=== PATIENT | male | born 1975 | race Caucasian/White ===

== ENCOUNTER 2016-12-06 20:44 | Emergency (ER) | payer BC, MEDICAID ==
[~2016-12-06 20:44] MED LIST: Acetaminophen/oxyCODONE 325-5 MG Tab PO ONE
[2016-12-06 20:53] VITALS: BP 136/85
[2016-12-06] MEDS ORDERED: Take Home: Acetaminophen/oxyCODONE 325-5 MG, 2 Tab Pack PO ONE (21:07)
--- NOTE | 2016-12-06 21:11 | EDM.PDOC ---
ED HPI GENERAL MEDICAL PROBLEM - General Chief Complaint: Back Pain or Injury Stated Complaint: back pain Time Seen by Provider: 12/06/16 20:45 Source of Information: Reports: Patient - History of Present Illness INITIAL COMMENTS - FREE TEXT/NARRATIVE: This patient is a 41 year old male that presents to the ER. Patient reports having chronic back pain. Patient reports his back pain is worse the last one week. Denies new injury. Patient denies urinary/bowel incontinence, denies saddle parathesia. Pulses +2, cap refill <2 sec, sensory/motor function intact. Neurovascular intact. Patient reports he has run out of his pain medication Percocet that is prescribed by his primary care provider Dr. Land in [place], [place]. I have called [facility] in [place]. I did confirm this provider is prescribing Percocet to this patient and he has a prescription for 90 ready for pickup. Patient has been filling his prescriptions early per pharmacy. Duration: Chronic (years) Location: Reports: Back Quality: Reports: Ache Severity: Mild Improves with: Reports: None Worsens with: Reports: Movement Associated Symptoms: Reports: No Other Symptoms. 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 Medication(s) Other Treatments LEADER ASSEMBLER: Gabapentin and Percocet both x3 Back Pain Score (Numeric/FACES): 5 - Related Data Allergies Allergy/AdvReac Type Severity Reaction Status Date / Time codeine Allergy Hives Verified 12/06/16 20:54 Home Meds: Home Meds Insulin Aspart [NovoLOG] 10 unit SQ ACBREAKFASTANDBED 04/01/13 [History] Insulin Glarg,Human.Rec.Analog [Lantus] 30 units SUBCUT DAILY 04/01/13 [History] Acetaminophen/oxyCODONE [Percocet 325-5 MG] 1 tab PO TID 04/07/13 [History] Gabapentin [Neurontin] 100 mg PO TID 12/06/16 [History] Past Medical History Musculoskeletal History: Reports: Back Pain, Chronic Neurological History: Reports: Neuropathy, Diabetic Psychiatric History: Reports: Depression Social & Family History - Family History Family Medical History: Noncontributory - Tobacco Use Smoking Status *Q: Current Every Day Smoker Years of Tobacco use: 15 Packs/Tins Daily: 0.5 - Caffeine Use Caffeine Use: Reports: Soda, Tea - Alcohol Use Days Per Week of Alcohol Use: 0 - Recreational Drug Use Recreational Drug Use: No Drug Use in Last 12 Months: Yes Recreational Drug Type: Reports: Marijuana/Hashish, Methamphetamine, Oxycodone Recreational Drug Use Frequency: Daily Recreational Drug Last Use: 1929 ED ROS GENERAL - Review of Systems Review Of Systems: See Below Constitutional: Reports: No Symptoms HEENT: Reports: No Symptoms Respiratory: Reports: No Symptoms Cardiovascular: Reports: No Symptoms Endocrine: Reports: No Symptoms GI/Abdominal: Reports: No Symptoms : Reports: No Symptoms Musculoskeletal: Reports: Back Pain Skin: Reports: No Symptoms Neurological: Reports: No Symptoms Psychiatric: Reports: No Symptoms Hematologic/Lymphatic: Reports: No Symptoms Immunologic: Reports: No Symptoms ED EXAM,LOWER BACK PAIN/INJURY - Physical Exam Exam: See Below Exam Limited By: No Limitations General Appearance: Alert, WD/WN, No Apparent Distress Eye Exam: Bilateral Eye: Normal Inspection, PERRL Ears: Normal External Exam, Normal Canal, Hearing Grossly Normal, Normal TMs Nose: Normal Inspection, Normal Mucosa, No Blood Throat/Mouth: Normal Inspection, Normal Lips, Normal Teeth, Normal Gums, Normal Oropharynx, Normal Voice, No Airway Compromise Head: Atraumatic, Normocephalic Neck: Normal Inspection, Supple, Non-Tender, Full Range of Motion Respiratory/Chest: No Respiratory Distress, Lungs Clear, Normal Breath Sounds, No Accessory Muscle Use Cardiovascular: Normal Peripheral Pulses, Regular Rate, Rhythm, No Edema, No Gallop, No JVD, No Murmur, No Rub GI/Abdominal: Soft, Non-Tender Back Exam: Normal Inspection, Full Range of Motion, Paraspinal Tenderness ( thoracic bilateral, lumbar bilateral ). No: CVA Tenderness (L), CVA Tenderness (R), Decreased Range of Motion, Muscle Spasm Extremities: Normal Inspection, Normal Range of Motion, Non-Tender, No Pedal Edema, Normal Capillary Refill Neurological: Alert, Normal Mood/Affect, Oriented x 3 Psychiatric: Normal Affect, Normal Mood Skin Exam: Warm, Dry, Intact, Normal Color, No Rash Lymphatic: No Adenopathy Course - Vital Signs Last Recorded V/S: Last Vital Signs Temp 98 F 12/06/16 20:47 Pulse 98 12/06/16 20:47 Resp 18 12/06/16 20:47 BP 136/85 12/06/16 20:47 Pulse Ox 97 12/06/16 20:47 - Orders/Labs/Meds Meds: Medications Discontinued Medications Generic Name Dose Route Start Last Admin Trade Name Dwayne PRN Reason Stop Dose Admin Oxycodone/Acetaminophen 2 packet 12/06/16 21:07 Take Home: Acetaminophen/Oxycodon, 2 Tab Pack PO 12/06/16 21:08 ONETIME ONE Departure - Departure Time of Disposition: 21:10 Disposition: Home, Self-Care 01 Condition: Good Clinical Impression: Low back pain - Discharge Information Instructions: Chronic Back Pain Forms: ED Department Discharge Additional Instructions: Followup with your primary care provider Return to the ER for worsening of condition or any emergent concerns Percocet 5/325mg 1 pill every 6 hours as needed for pain #4 no refill. Take Home. 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 - Assessment/Plan Plan: PLEASE SEE RNO NOTE FOR PFSH.
== END 2016-12-06 21:25 | disposition home or self-care (01) ==
LOC: CC.ED 20:44
DX: M54.5 Low back pain (principal); E11.40 Type 2 diabetes mellitus with diabetic neuropathy, unspecified; F17.210 Nicotine dependence, cigarettes, uncomplicated; Z88.5 Allergy status to narcotic agent; Z79.4 Long term (current) use of insulin; Z79.899 Other long term (current) drug therapy
CPT/HCPCS: 99283; A9270

== ENCOUNTER 2018-03-25 15:42 | Inpatient (IN) | payer BC, MEDICAID ==
[2018-03-25 16:43] LABS: SODIUM,NA 131 mEq/L (136-145)
[2018-03-25 16:47] LABS: CHLORIDE,CL 94 mEq/L (98-106)
--- NOTE | 2018-03-25 17:36 | EDM.PDOC ---
ED HPI GENERAL MEDICAL PROBLEM - General Chief Complaint: Lower Extremity Injury/Pain Stated Complaint: R FOOT INF/DIABETIC Time Seen by Provider: 03/25/18 16:19 Source of Information: Reports: Patient History Limitations: Reports: No Limitations - History of Present Illness INITIAL COMMENTS - FREE TEXT/NARRATIVE: Arvin is a 42 yo male who presents via private vehicle to the ED with complaints of infection from a wound to the bottom of his right foot. He states he noticed it 3 to 4 days ago and it seems to be getting worse. Initially, he noticed some drainage. Has diminished feeling to his feet as he is an uncontrolled diabetic. He states even with the diminished sensation he has been having 7 out of 10 pain to the bottom of foot. Reports he was walking around his home bare foot a few days ago. Does not know what cut his foot but thinks it could possibly be a piece of glass. He states when he noticed it he applied liquid bandage to it. Since noticing onset he thinks the infection has spread up his leg and noticed increased redness. Reports taking Percocet for surgery on his back and those are not helping the pain in his foot. Admits blood sugars continue to be difficult to control and roughly in the 300-400 range. Right Feet Pain Score (Numeric/FACES): 7 - Related Data Allergies Allergy/AdvReac Type Severity Reaction Status Date / Time codeine Allergy Hives Verified 12/06/16 20:54 Home Meds: Home Meds Insulin Aspart [NovoLOG] 10 unit SQ QIDACANDBED 04/01/13 [History] Acetaminophen/oxyCODONE [Percocet 325-5 MG] 1 tab PO TID PRN 04/07/13 [History] Gabapentin [Neurontin] 300 mg PO TID 12/06/16 [History] Insulin Glargine,Hum.Rec.Anlog [Basaglar Kwikpen U-100] 40 unit SQ BEDTIME 03/25 [History] Lisinopril 20 mg PO DAILY 03/25/18 [History] metFORMIN [Glucophage] 1,000 mg PO DAILY 03/25/18 [History] Past Medical History Cardiovascular History: Reports: Hypertension Musculoskeletal History: Reports: Back Pain, Chronic Neurological History: Reports: Neuropathy, Diabetic Psychiatric History: Reports: Anxiety, Depression Endocrine/Metabolic History: Reports: Diabetes, Type I - Past Surgical History Cardiovascular Surgical History: Reports: None Endocrine Surgical History: Reports: None Neurological Surgical History: Reports: None Musculoskeletal Surgical History: Reports: None Dermatological Surgical History: Reports: None Social & Family History - Family History Family Medical History: Noncontributory - Tobacco Use Smoking Status *Q: Current Every Day Smoker Years of Tobacco use: 15 Packs/Tins Daily: 0.5 - Caffeine Use Caffeine Use: Reports: Soda - Recreational Drug Use Recreational Drug Use: No Review of Systems - Review of Systems Review Of Systems: ROS reveals no pertinent complaints other than HPI. ED EXAM, GENERAL - Physical Exam Exam: See Below Exam Limited By: No Limitations General Appearance: Alert, No Apparent Distress Eye Exam: Bilateral Eye: Normal Inspection Ears: Normal External Exam, Normal Canal, Hearing Grossly Normal, Normal TMs Nose: Normal Inspection, Normal Mucosa, No Blood Throat/Mouth: Normal Inspection, Normal Lips, Normal Gums, Normal Oropharynx, Normal Voice, No Airway Compromise, Other (poor dentition) Head: Atraumatic, Normocephalic Neck: Normal Inspection, Supple Respiratory/Chest: No Respiratory Distress, Lungs Clear, Normal Breath Sounds, No Accessory Muscle Use Cardiovascular: Regular Rate, Rhythm, No Murmur Peripheral Pulses: 3+: Posterior Tibial (L), Posterior Tibial (R), Dorsalis Pedis (L), Dorsalis Pedis (R) GI/Abdominal: Normal Bowel Sounds, Soft, Non-Tender Extremities: Normal Capillary Refill, Increased Warmth (top aspect of foot), Redness, Other (1.7cm x 0.4cm laceration noted to bottom of right foot, no active drainage) Neurological: Alert, Oriented, Normal Cognition, Sensory/Motor Deficit ( diminished sensation to bilateral feet) Psychiatric: Normal Affect, Normal Mood Course - Vital Signs Last Recorded V/S: Last Vital Signs Temp 99 F 03/25/18 17:09 Pulse 116 H 03/25/18 17:09 Resp 18 03/25/18 17:09 BP 147/88 H 03/25/18 17:09 Pulse Ox 100 03/25/18 17:09 - Orders/Labs/Meds Labs: Laboratory Tests 03/25/18 03/25/18 Range/Units 16:30 16:30 WBC 13.0 H (5.0-10.0) 10^3/uL RBC 4.10 L (4.50-6.00) 10^6/uL Hgb 13.1 L (14.0-18.0) g/dL Hct 37.6 L (40.0-54.0) % MCV 91.7 (82.0-94.0) fL MCH 32.0 (27.0-32.0) pg MCHC 34.8 (33.0-38.0) g/dL RDW Coeff of Ludmila 12.2 (11.0-15.0) % Plt Count 343 (150-400) 10^3/uL Neut % (Auto) 75.9 (35-85) % Lymph % (Auto) 12.6 (10-55) % [place] % (Auto) 10.6 (0-16) % Eos % (Auto) 0.4 (0-5) % Baso % (Auto) 0.5 (0-3) % Neut # (Auto) 9.88 H (1.80-7.00) 10^3/uL Lymph # (Auto) 1.64 (1.00-4.80) 10^3/uL [place] # (Auto) 1.38 H (0.00-0.80) 10^3/uL Eos # (Auto) 0.05 (0.00-0.45) 10^3/uL Baso # (Auto) 0.06 10^3/uL Sodium 131 L (136-145) mEq/L Potassium 4.3 (3.5-5.0) mEq/L Chloride 94 L (98-106) mEq/L Carbon Dioxide 30 (21-32) mmol/L BUN 12 (7-18) mg/dL Creatinine 1.0 (0.7-1.3) mg/dL Est Cr Clr Drug Dosing 93.55 mL/min Estimated GFR (MDRD) > 60 (>=60) mL/min Glucose 373 H* D (75-99) mg/dL Calcium 8.3 L (8.4-10.1) mg/dL C-Reactive Protein 10.3 H (0.2-0.8) mg/dL Departure - Departure Time of Disposition: 16:45 Disposition: Admitted As Inpatient 67 Clinical Impression: Cellulitis in diabetic foot - Discharge Information - Problem List & Annotations (1) Cellulitis in diabetic foot SNOMED Code(s): 010060469 Code(s): E11.628 - TYPE 2 DIABETES MELLITUS WITH OTHER SKIN COMPLICATIONS; L03.119 - CELLULITIS OF UNSPECIFIED PART OF LIMB Status: Acute Current Visit : Yes - Problem List Review Problem List Initiated/Reviewed/Updated: Yes - Assessment/Plan Plan: Will admit from ER to hospital under acute care. Dr. Pierre consulted and evaluated Arvin's foot. Didn't feel anything surgically needed to be drained. Will admit for IV antibiotics and tight control of blood sugars. Blood pressure improved as well. Discussed care with cheese production supervisor provider and verbalized understanding.
[2018-03-25] MEDS ORDERED: Sodium Chloride 0.9% 10 ML Syringe FLUSH PRN (17:38)
[2018-03-25] MEDS: Piperacillin/Tazobactam 3.375 GM in Sodium Chloride 0.9% 50 ML IV SCH ×2 (18:21→23:29)
[2018-03-25] MEDS: Insulin Aspart 100 Units/ML 3 ML Pen SUBCUT SCH ×2 (18:22→20:49)
[2018-03-25] MEDS: Sodium Chloride 0.9% 1,000 ML IV SCH (18:22)
[2018-03-25] MEDS: Acetaminophen/oxyCODONE 325-5 MG Tab PO PRN (18:43)
[2018-03-25] MEDS: Gabapentin 300 MG Cap PO SCH (20:40)
[2018-03-25] MEDS: Insulin Glarg,Human.Rec.Analog 100 UNIT/ML ML SUBCUT SCH (20:58)
[2018-03-26] MEDS: Sodium Chloride 0.9% 1,000 ML IV SCH ×3 (02:18→22:14)
[2018-03-26] MEDS: Acetaminophen/oxyCODONE 325-5 MG Tab PO PRN ×4 (02:46→20:27)
[2018-03-26] MEDS: Piperacillin/Tazobactam 3.375 GM in Sodium Chloride 0.9% 50 ML IV SCH ×4 (05:40→23:30)
[2018-03-26] MEDS: Ketorolac 30 MG/ML SDV IV PRN (07:04)
[2018-03-26 07:38] LABS: CHLORIDE,CL 100 mEq/L (98-106); SODIUM,NA 139 mEq/L (136-145)
[2018-03-26] MEDS: Insulin Aspart 100 Units/ML 3 ML Pen SUBCUT SCH ×4 (08:31→20:53)
[2018-03-26] MEDS: Gabapentin 300 MG Cap PO SCH ×3 (08:53→20:15)
[2018-03-26] MEDS: metFORMIN 500 MG Tab PO SCH (08:53)
[2018-03-26] MEDS: Nicotine 21 MG/24 Hr Patch TRDERM SCH (08:54)
[2018-03-26] MEDS: Lisinopril 20 MG Tab PO SCH (08:54)
--- NOTE | 2018-03-26 18:46 | PCM.PN ---
- General Info Date of Service: 03/26/18 Functional Status: Reports: Pain Controlled (pain has improved, but still reports some pain. ). Denies: Ambulating - Review of Systems General: Reports: Fever HEENT: Reports: No Symptoms Pulmonary: Reports: No Symptoms Cardiovascular: Reports: No Symptoms Gastrointestinal: Reports: No Symptoms Genitourinary: Reports: No Symptoms Musculoskeletal: Reports: Foot Pain (right foot pain) Skin: Reports: Other (open draining wound right bottom of foot, surrounding erythema. ) Neurological: Reports: No Symptoms Psychiatric: Reports: No Symptoms - Patient Data Vitals - Most Recent: Last Vital Signs Temp 100.8 F H 03/26/18 16:00 Pulse 105 H 03/26/18 16:00 Resp 16 03/26/18 16:00 BP 152/91 H 03/26/18 16:00 Pulse Ox 100 03/26/18 16:00 Weight - Most Recent: 150 lb 14.4 oz I&O - Last 24 Hours: Intake & Output 03/26/18 03/26/18 03/26/18 06:59 14:59 22:59 Intake Total 992 1000 Balance 992 1000 Lab Results Last 24 Hours: Laboratory Results - last 24 hr 03/25/18 03/26/18 03/26/18 Range/Units 19:29 07:00 07:00 WBC 12.8 H (5.0-10.0) 10^3/uL RBC 3.72 L (4.50-6.00) 10^6/uL Hgb 11.7 L (14.0-18.0) g/dL Hct 34.5 L (40.0-54.0) % MCV 92.7 (82.0-94.0) fL MCH 31.5 (27.0-32.0) pg MCHC 33.9 (33.0-38.0) g/dL RDW Coeff of Ludmila 12.3 (11.0-15.0) % Plt Count 311 (150-400) 10^3/uL Neut % (Auto) 68.7 (35-85) % Lymph % (Auto) 18.3 (10-55) % [place] % (Auto) 11.5 (0-16) % Eos % (Auto) 1.2 (0-5) % Baso % (Auto) 0.3 (0-3) % Neut # (Auto) 8.77 H (1.80-7.00) 10^3/uL Lymph # (Auto) 2.33 (1.00-4.80) 10^3/uL [place] # (Auto) 1.46 H (0.00-0.80) 10^3/uL Eos # (Auto) 0.15 (0.00-0.45) 10^3/uL Baso # (Auto) 0.04 10^3/uL Sodium 139 (136-145) mEq/L Potassium 3.8 (3.5-5.0) mEq/L Chloride 100 (98-106) mEq/L Carbon Dioxide 31 (21-32) mmol/L BUN 8 (7-18) mg/dL Creatinine 0.8 (0.7-1.3) mg/dL Est Cr Clr Drug Dosing 117.64 mL/min Estimated GFR (MDRD) > 60 (>=60) mL/min Glucose 190 H D (75-99) mg/dL POC Glucose 344 H (75-105) mg/dl Calcium 8.1 L (8.4-10.1) mg/dL C-Reactive Protein 11.2 H (0.2-0.8) mg/dL 03/26/18 03/26/18 Range/Units 08:16 11:02 WBC (5.0-10.0) 10^3/uL RBC (4.50-6.00) 10^6/uL Hgb (14.0-18.0) g/dL Hct (40.0-54.0) % MCV (82.0-94.0) fL MCH (27.0-32.0) pg MCHC (33.0-38.0) g/dL RDW Coeff of Ludmila (11.0-15.0) % Plt Count (150-400) 10^3/uL Neut % (Auto) (35-85) % Lymph % (Auto) (10-55) % [place] % (Auto) (0-16) % Eos % (Auto) (0-5) % Baso % (Auto) (0-3) % Neut # (Auto) (1.80-7.00) 10^3/uL Lymph # (Auto) (1.00-4.80) 10^3/uL [place] # (Auto) (0.00-0.80) 10^3/uL Eos # (Auto) (0.00-0.45) 10^3/uL Baso # (Auto) 10^3/uL Sodium (136-145) mEq/L Potassium (3.5-5.0) mEq/L Chloride (98-106) mEq/L Carbon Dioxide (21-32) mmol/L BUN (7-18) mg/dL Creatinine (0.7-1.3) mg/dL Est Cr Clr Drug Dosing mL/min Estimated GFR (MDRD) (>=60) mL/min Glucose (75-99) mg/dL POC Glucose 143 H 402 H* (75-105) mg/dl Calcium (8.4-10.1) mg/dL C-Reactive Protein (0.2-0.8) mg/dL Med Orders - Current: Current Medications Acetaminophen (Tylenol) 650 mg PO Q4H PRN PRN Reason: Pain (Mild 1-3)/fever Gabapentin (Neurontin) 300 mg PO TID [facility] Last Admin: 03/26/18 14:32 Dose: 300 mg Piperacillin Sod/Tazobactam (Sod 3.375 gm/ Sodium Chloride) 50 mls @ 100 mls/ hr IV Q6H [facility] Last Admin: 03/26/18 18:28 Dose: 100 mls/hr Sodium Chloride (Normal Saline) 1,000 mls @ 125 mls/hr IV ASDIRECTED [facility] Last Admin: 03/26/18 12:00 Dose: 125 mls/hr Insulin Aspart (Novolog) 0 unit SUBCUT WITHMEALSANDBED [facility]; Protocol Last Admin: 03/26/18 17:35 Dose: 9 units Insulin Glargine (Lantus) 40 unit SUBCUT BEDTIME [facility] Last Admin: 03/25/18 20:58 Dose: 40 units Ketorolac Tromethamine (Toradol) 30 mg IV Q6H PRN PRN Reason: Pain (moderate 4-6) Last Admin: 03/26/18 07:04 Dose: 30 mg Lisinopril (Prinivil) 20 mg PO DAILY [facility] Last Admin: 03/26/18 08:54 Dose: 20 mg Metformin HCl (Glucophage) 1,000 mg PO DAILY [facility] Last Admin: 03/26/18 08:53 Dose: 1,000 mg Nicotine (Habitrol) 21 mg TRDERM DAILY [facility] Last Admin: 03/26/18 08:54 Dose: Not Given Oxycodone/Acetaminophen (Percocet 325-5 Mg) 2 tab PO TID PRN PRN Reason: Pain Sodium Chloride (Saline Flush) 10 ml FLUSH ASDIRECTED PRN PRN Reason: Keep Vein Open Discontinued Medications Oxycodone/Acetaminophen (Percocet 325-5 Mg) 1 tab PO TID PRN PRN Reason: Pain Last Admin: 03/26/18 15:01 Dose: 1 tab - Exam General: Alert, Oriented, Cooperative, No Acute Distress Lungs: Clear to Auscultation, Normal Respiratory Effort Cardiovascular: Regular Rhythm, No Murmurs, Tachycardia (110) GI/Abdominal Exam: Normal Bowel Sounds, Soft, Non-Tender Extremities: Normal Range of Motion, No Pedal Edema, Normal Capillary Refill, Increased Warmth (right foot), Redness (right foot) Peripheral Pulses: 2+: Posterior Tibial (L), Posterior Tibial (R), Dorsalis Pedis (L), Dorsalis Pedis (R) Skin: Warm, Dry, Other (wound right bottom of foot. ) - Problem List Review Problem List Initiated/Reviewed/Updated: Yes - My Orders Last 24 Hours: My Active Orders 03/26/18 16:27 Foot 2V Rt [CR] Stat Acetaminophen/oxyCODONE [Percocet 325-5 MG] 2 tab PO TID PRN 03/27/18 05:00 BASIC METABOLIC PANEL,BMP [CHEM] DAILY CBC WITH AUTO DIFF [HEME] DAILY 03/28/18 05:00 BASIC METABOLIC PANEL,BMP [CHEM] DAILY CBC WITH AUTO DIFF [HEME] DAILY 03/29/18 05:00 BASIC METABOLIC PANEL,BMP [CHEM] DAILY CBC WITH AUTO DIFF [HEME] DAILY - Plan Plan:: This patient was admitted to the hospital yesterday for right foot wound with surrounding erythema cellulitis. The patient today has fever. He reports pain in the right foot that is improved with Percocet, but reports still having some pain. I have increased his Percocet for pain due to obvious infection. The patient WBC today is 12.8, Glucose is 190, and CRP is 11.2. Will continue the same plan of admit and abx for this patient. I have ordered an Xray to ensure no FB in the wound. Patient does not recall how he obtained the ulcer on this foot. Although, he is a diabetic that is not well controlled.
[2018-03-26] MEDS: Insulin Glarg,Human.Rec.Analog 100 UNIT/ML ML SUBCUT SCH (21:03)
[2018-03-27] MEDS: Acetaminophen/oxyCODONE 325-5 MG Tab PO PRN ×3 (01:56→19:56)
[2018-03-27] MEDS: Piperacillin/Tazobactam 3.375 GM in Sodium Chloride 0.9% 50 ML IV SCH ×3 (05:47→17:49)
[2018-03-27 07:33] LABS: CHLORIDE,CL 107 mEq/L (98-106); SODIUM,NA 143 mEq/L (136-145)
[2018-03-27] MEDS: Ketorolac 30 MG/ML SDV IV PRN ×2 (07:38→16:38)
[2018-03-27] MEDS: Sodium Chloride 0.9% 1,000 ML IV SCH (07:38)
[2018-03-27] MEDS: metFORMIN 500 MG Tab PO SCH (07:43)
[2018-03-27] MEDS: Gabapentin 300 MG Cap PO SCH ×3 (07:43→19:56)
[2018-03-27] MEDS: Lisinopril 20 MG Tab PO SCH (07:43)
[2018-03-27] MEDS: Nicotine 21 MG/24 Hr Patch TRDERM SCH (07:44)
[2018-03-27] MEDS: Insulin Aspart 100 Units/ML 3 ML Pen SUBCUT SCH ×4 (09:16→20:36)
--- NOTE | 2018-03-27 10:12 | PCM.PN ---
- General Info Date of Service: 03/27/18 Functional Status: Reports: Pain Controlled, Tolerating Diet, Ambulating - Review of Systems General: Reports: No Symptoms. Denies: Fever (no fever today) HEENT: Reports: No Symptoms Pulmonary: Reports: No Symptoms Cardiovascular: Reports: No Symptoms Gastrointestinal: Reports: No Symptoms Genitourinary: Reports: No Symptoms Musculoskeletal: Reports: Foot Pain (right foot pain) Skin: Reports: Other (wound right foot bottom) Neurological: Reports: No Symptoms Psychiatric: Reports: No Symptoms - Patient Data Vitals - Most Recent: Last Vital Signs Temp 96.8 F 03/27/18 07:45 Pulse 92 03/27/18 07:45 Resp 20 03/27/18 07:45 BP 141/78 H 03/27/18 07:45 Pulse Ox 100 03/27/18 07:45 Weight - Most Recent: 150 lb 14.4 oz I&O - Last 24 Hours: Intake & Output 03/26/18 03/27/18 03/27/18 22:59 06:59 14:59 Intake Total 1000 1000 Balance 1000 1000 Lab Results Last 24 Hours: Laboratory Results - last 24 hr 03/26/18 03/26/18 03/26/18 Range/Units 11:02 17:29 20:47 WBC (5.0-10.0) 10^3/uL RBC (4.50-6.00) 10^6/uL Hgb (14.0-18.0) g/dL Hct (40.0-54.0) % MCV (82.0-94.0) fL MCH (27.0-32.0) pg MCHC (33.0-38.0) g/dL RDW Coeff of Ludmila (11.0-15.0) % Plt Count (150-400) 10^3/uL Neut % (Auto) (35-85) % Lymph % (Auto) (10-55) % [place] % (Auto) (0-16) % Eos % (Auto) (0-5) % Baso % (Auto) (0-3) % Neut # (Auto) (1.80-7.00) 10^3/uL Lymph # (Auto) (1.00-4.80) 10^3/uL [place] # (Auto) (0.00-0.80) 10^3/uL Eos # (Auto) (0.00-0.45) 10^3/uL Baso # (Auto) 10^3/uL Sodium (136-145) mEq/L Potassium (3.5-5.0) mEq/L Chloride (98-106) mEq/L Carbon Dioxide (21-32) mmol/L BUN (7-18) mg/dL Creatinine (0.7-1.3) mg/dL Est Cr Clr Drug Dosing mL/min Estimated GFR (MDRD) (>=60) mL/min Glucose (75-99) mg/dL POC Glucose 402 H* 279 H 234 H (75-105) mg/dl Calcium (8.4-10.1) mg/dL 03/27/18 03/27/18 03/27/18 Range/Units 07:00 07:00 07:23 WBC 12.6 H (5.0-10.0) 10^3/uL RBC 3.44 L (4.50-6.00) 10^6/uL Hgb 10.8 L (14.0-18.0) g/dL Hct 32.1 L (40.0-54.0) % MCV 93.3 (82.0-94.0) fL MCH 31.4 (27.0-32.0) pg MCHC 33.6 (33.0-38.0) g/dL RDW Coeff of Ludmila 12.1 (11.0-15.0) % Plt Count 298 (150-400) 10^3/uL Neut % (Auto) 70.6 (35-85) % Lymph % (Auto) 17.3 (10-55) % [place] % (Auto) 9.8 (0-16) % Eos % (Auto) 1.7 (0-5) % Baso % (Auto) 0.6 (0-3) % Neut # (Auto) 8.86 H (1.80-7.00) 10^3/uL Lymph # (Auto) 2.17 (1.00-4.80) 10^3/uL [place] # (Auto) 1.23 H (0.00-0.80) 10^3/uL Eos # (Auto) 0.21 (0.00-0.45) 10^3/uL Baso # (Auto) 0.08 10^3/uL Sodium 143 (136-145) mEq/L Potassium 3.6 (3.5-5.0) mEq/L Chloride 107 H (98-106) mEq/L Carbon Dioxide 30 (21-32) mmol/L BUN 9 (7-18) mg/dL Creatinine 0.6 L (0.7-1.3) mg/dL Est Cr Clr Drug Dosing 156.86 mL/min Estimated GFR (MDRD) > 60 (>=60) mL/min Glucose 124 H D (75-99) mg/dL POC Glucose 136 H (75-105) mg/dl Calcium 8.3 L (8.4-10.1) mg/dL Med Orders - Current: Current Medications Acetaminophen (Tylenol) 650 mg PO Q4H PRN PRN Reason: Pain (Mild 1-3)/fever Gabapentin (Neurontin) 300 mg PO TID [facility] Last Admin: 03/27/18 07:43 Dose: 300 mg Piperacillin Sod/Tazobactam (Sod 3.375 gm/ Sodium Chloride) 50 mls @ 100 mls/ hr IV Q6H [facility] Last Admin: 03/27/18 05:47 Dose: 100 mls/hr Sodium Chloride (Normal Saline) 1,000 mls @ 125 mls/hr IV ASDIRECTED [facility] Last Admin: 03/27/18 07:38 Dose: 125 mls/hr Insulin Aspart (Novolog) 0 unit SUBCUT WITHMEALSANDBED [facility]; Protocol Last Admin: 03/27/18 09:16 Dose: Not Given Insulin Glargine (Lantus) 40 unit SUBCUT BEDTIME [facility] Last Admin: 03/26/18 21:03 Dose: 40 units Ketorolac Tromethamine (Toradol) 30 mg IV Q6H PRN PRN Reason: Pain (moderate 4-6) Last Admin: 03/27/18 07:38 Dose: 30 mg Lisinopril (Prinivil) 20 mg PO DAILY [facility] Last Admin: 03/27/18 07:43 Dose: 20 mg Metformin HCl (Glucophage) 1,000 mg PO DAILY [facility] Last Admin: 03/27/18 07:43 Dose: 1,000 mg Nicotine (Habitrol) 21 mg TRDERM DAILY [facility] Last Admin: 03/27/18 07:44 Dose: Not Given Oxycodone/Acetaminophen (Percocet 325-5 Mg) 2 tab PO TID PRN PRN Reason: Pain Last Admin: 03/27/18 10:05 Dose: 2 tab Sodium Chloride (Saline Flush) 10 ml FLUSH ASDIRECTED PRN PRN Reason: Keep Vein Open Discontinued Medications Oxycodone/Acetaminophen (Percocet 325-5 Mg) 1 tab PO TID PRN PRN Reason: Pain Last Admin: 03/26/18 15:01 Dose: 1 tab - Exam General: Alert, Oriented, Cooperative, No Acute Distress Lungs: Clear to Auscultation, Normal Respiratory Effort Cardiovascular: Regular Rate, Regular Rhythm, No Murmurs Back Exam: Normal Inspection, Full Range of Motion Extremities: Normal Range of Motion, Non-Tender, No Pedal Edema, Normal Capillary Refill, Redness (mild redness, improving right foot bottom. ) Peripheral Pulses: 2+: Radial (L), Radial (R), Posterior Tibial (L), Posterior Tibial (R), Dorsalis Pedis (L), Dorsalis Pedis (R) Skin: Warm, Dry, Other (Right foot wound, surruonding erythema, looking improved from yesterday. No drainage seen today. ) Neurological: No New Focal Deficit Psy/Mental Status: Alert, Normal Affect, Normal Mood - Problem List Review Problem List Initiated/Reviewed/Updated: Yes - My Orders Last 24 Hours: My Active Orders 03/26/18 16:27 Foot 2V Rt [CR] Stat Acetaminophen/oxyCODONE [Percocet 325-5 MG] 2 tab PO TID PRN 03/26/18 17:30 CULTURE WOUND [RM] Routine 03/26/18 19:05 Dressing Change [Wound Care] [RC] DAILY 03/28/18 05:00 BASIC METABOLIC PANEL,BMP [CHEM] DAILY CBC WITH AUTO DIFF [HEME] DAILY CRP [C-REACTIVE PROTEIN] [CHEM] Routine 03/29/18 05:00 BASIC METABOLIC PANEL,BMP [CHEM] DAILY CBC WITH AUTO DIFF [HEME] DAILY - Plan Plan:: 03/26/18 This patient was admitted to the hospital yesterday for right foot wound with surrounding erythema cellulitis. The patient today has fever. He reports pain in the right foot that is improved with Percocet, but reports still having some pain. I have increased his Percocet for pain due to obvious infection. The patient WBC today is 12.8, Glucose is 190, and CRP is 11.2. Will continue the same plan of admit and abx for this patient. I have ordered an Xray to ensure no FB in the wound. Patient does not recall how he obtained the ulcer on this foot. Although, he is a diabetic that is not well controlled. 03/27/18 This patient was admitted to the hospital [facility] for right foot wound with surrounding erythema cellulitis. The patient today has NO fever. He reports pain in the right foot that is improved with Percocet, but reports still having some pain. He has requested more pain medication. I have instructed him that we have already increased his pain medication and his infection is improving. At this time, we will hold on adding or increasing his pain medications. The patient is laying in bed and appears comfortable. The p[atient labs today is wbc 12.6. THe patient is alert and oriented. Will continue admission on IV abx, wait on CX results from wound. He will be seen again tomorrow and evaluated.
[2018-03-27] MEDS: Insulin Glarg,Human.Rec.Analog 100 UNIT/ML ML SUBCUT SCH (20:35)
[2018-03-28] MEDS: Piperacillin/Tazobactam 3.375 GM in Sodium Chloride 0.9% 50 ML IV SCH ×3 (00:01→11:54)
[2018-03-28] MEDS: Ketorolac 30 MG/ML SDV IV PRN ×3 (01:55→16:20)
[2018-03-28] MEDS: Acetaminophen/oxyCODONE 325-5 MG Tab PO PRN ×3 (05:14→20:42)
[2018-03-28] MEDS: Insulin Aspart 100 Units/ML 3 ML Pen SUBCUT SCH ×4 (07:45→20:53)
[2018-03-28] MEDS: Gabapentin 300 MG Cap PO SCH ×3 (07:45→19:39)
[2018-03-28] MEDS: Lisinopril 20 MG Tab PO SCH (07:45)
[2018-03-28] MEDS: metFORMIN 500 MG Tab PO SCH (07:45)
[2018-03-28] MEDS: Nicotine 21 MG/24 Hr Patch TRDERM SCH (07:46)
[2018-03-28 08:08] LABS: CHLORIDE,CL 103 mEq/L (98-106); SODIUM,NA 140 mEq/L (136-145)
[2018-03-28] MEDS: Acetaminophen 325 MG Tab PO PRN (09:43)
--- NOTE | 2018-03-28 12:18 | PCM.PN ---
- General Info Date of Service: 03/28/18 Functional Status: Reports: Tolerating Diet, Ambulating. Denies: Pain Controlled - Review of Systems General: Reports: Fever. Denies: Weakness, Fatigue, Malaise HEENT: Reports: No Symptoms Pulmonary: Denies: Shortness of Breath, Cough, Wheezing Cardiovascular: Denies: Chest Pain, Edema, Lightheadedness Gastrointestinal: Denies: Abdominal Pain, Nausea, Vomiting Genitourinary: Reports: No Symptoms Musculoskeletal: Reports: Foot Pain Skin: Reports: Other (redness to foot and ankle) Neurological: Reports: No Symptoms - Patient Data Vitals - Most Recent: Last Vital Signs Temp 97.4 F 03/28/18 07:24 Pulse 83 03/28/18 07:24 Resp 20 03/28/18 07:24 BP 132/77 03/28/18 07:45 Pulse Ox 98 03/28/18 07:24 Weight - Most Recent: 150 lb 14.4 oz Lab Results Last 24 Hours: Laboratory Results - last 24 hr 03/27/18 03/27/18 03/27/18 Range/Units 17:13 20:09 20:17 WBC (5.0-10.0) 10^3/uL RBC (4.50-6.00) 10^6/uL Hgb (14.0-18.0) g/dL Hct (40.0-54.0) % MCV (82.0-94.0) fL MCH (27.0-32.0) pg MCHC (33.0-38.0) g/dL RDW Coeff of Ludmila (11.0-15.0) % Plt Count (150-400) 10^3/uL Neut % (Auto) (35-85) % Lymph % (Auto) (10-55) % [place] % (Auto) (0-16) % Eos % (Auto) (0-5) % Baso % (Auto) (0-3) % Neut # (Auto) (1.80-7.00) 10^3/uL Lymph # (Auto) (1.00-4.80) 10^3/uL [place] # (Auto) (0.00-0.80) 10^3/uL Eos # (Auto) (0.00-0.45) 10^3/uL Baso # (Auto) 10^3/uL Sodium (136-145) mEq/L Potassium (3.5-5.0) mEq/L Chloride (98-106) mEq/L Carbon Dioxide (21-32) mmol/L BUN (7-18) mg/dL Creatinine (0.7-1.3) mg/dL Est Cr Clr Drug Dosing mL/min Estimated GFR (MDRD) (>=60) mL/min Glucose (75-99) mg/dL POC Glucose 262 H 493 H* 467 H* (75-105) mg/dl Calcium (8.4-10.1) mg/dL C-Reactive Protein (0.2-0.8) mg/dL 03/28/18 03/28/18 03/28/18 Range/Units 05:00 07:00 07:26 WBC 13.7 H (5.0-10.0) 10^3/uL RBC 3.35 L (4.50-6.00) 10^6/uL Hgb 10.4 L (14.0-18.0) g/dL Hct 31.4 L (40.0-54.0) % MCV 93.7 (82.0-94.0) fL MCH 31.0 (27.0-32.0) pg MCHC 33.1 (33.0-38.0) g/dL RDW Coeff of Ludmila 11.8 (11.0-15.0) % Plt Count 343 (150-400) 10^3/uL Neut % (Auto) 74.3 (35-85) % Lymph % (Auto) 14.4 (10-55) % [place] % (Auto) 9.7 (0-16) % Eos % (Auto) 1.3 (0-5) % Baso % (Auto) 0.3 (0-3) % Neut # (Auto) 10.15 H (1.80-7.00) 10^3/uL Lymph # (Auto) 1.97 (1.00-4.80) 10^3/uL [place] # (Auto) 1.33 H (0.00-0.80) 10^3/uL Eos # (Auto) 0.18 (0.00-0.45) 10^3/uL Baso # (Auto) 0.04 10^3/uL Sodium 140 (136-145) mEq/L Potassium 4.0 (3.5-5.0) mEq/L Chloride 103 (98-106) mEq/L Carbon Dioxide 29 (21-32) mmol/L BUN 13 (7-18) mg/dL Creatinine 0.7 (0.7-1.3) mg/dL Est Cr Clr Drug Dosing 134.45 mL/min Estimated GFR (MDRD) > 60 (>=60) mL/min Glucose 206 H D (75-99) mg/dL POC Glucose 184 H (75-105) mg/dl Calcium 8.4 (8.4-10.1) mg/dL C-Reactive Protein 13.5 H (0.2-0.8) mg/dL 03/28/18 Range/Units 11:52 WBC (5.0-10.0) 10^3/uL RBC (4.50-6.00) 10^6/uL Hgb (14.0-18.0) g/dL Hct (40.0-54.0) % MCV (82.0-94.0) fL MCH (27.0-32.0) pg MCHC (33.0-38.0) g/dL RDW Coeff of Ludmila (11.0-15.0) % Plt Count (150-400) 10^3/uL Neut % (Auto) (35-85) % Lymph % (Auto) (10-55) % [place] % (Auto) (0-16) % Eos % (Auto) (0-5) % Baso % (Auto) (0-3) % Neut # (Auto) (1.80-7.00) 10^3/uL Lymph # (Auto) (1.00-4.80) 10^3/uL [place] # (Auto) (0.00-0.80) 10^3/uL Eos # (Auto) (0.00-0.45) 10^3/uL Baso # (Auto) 10^3/uL Sodium (136-145) mEq/L Potassium (3.5-5.0) mEq/L Chloride (98-106) mEq/L Carbon Dioxide (21-32) mmol/L BUN (7-18) mg/dL Creatinine (0.7-1.3) mg/dL Est Cr Clr Drug Dosing mL/min Estimated GFR (MDRD) (>=60) mL/min Glucose (75-99) mg/dL POC Glucose 306 H (75-105) mg/dl Calcium (8.4-10.1) mg/dL C-Reactive Protein (0.2-0.8) mg/dL Jason Results Last 24 Hours: Microbiology 03/26/18 17:30 Wound Culture - Final Flank, Right Staphylococcus Aureus Beta Hemolytic Strepto Grp B Med Orders - Current: Current Medications Acetaminophen (Tylenol) 650 mg PO Q4H PRN PRN Reason: Pain (Mild 1-3)/fever Last Admin: 03/28/18 09:43 Dose: 650 mg Gabapentin (Neurontin) 300 mg PO TID [facility] Last Admin: 03/28/18 07:45 Dose: 300 mg Piperacillin Sod/Tazobactam (Sod 3.375 gm/ Sodium Chloride) 50 mls @ 100 mls/ hr IV Q6H [facility] Last Admin: 03/28/18 11:54 Dose: 100 mls/hr Insulin Aspart (Novolog) 0 unit SUBCUT WITHMEALSANDBED [facility]; Protocol Last Admin: 03/28/18 11:55 Dose: 12 units Insulin Glargine (Lantus) 40 unit SUBCUT BEDTIME [facility] Last Admin: 03/27/18 20:35 Dose: 40 units Ketorolac Tromethamine (Toradol) 30 mg IV Q6H PRN PRN Reason: Pain (moderate 4-6) Last Admin: 03/28/18 09:43 Dose: 30 mg Lisinopril (Prinivil) 20 mg PO DAILY [facility] Last Admin: 03/28/18 07:45 Dose: 20 mg Metformin HCl (Glucophage) 1,000 mg PO DAILY [facility] Last Admin: 03/28/18 07:45 Dose: 1,000 mg Nicotine (Habitrol) 21 mg TRDERM DAILY [facility] Last Admin: 03/28/18 07:46 Dose: 21 mg Oxycodone/Acetaminophen (Percocet 325-5 Mg) 1 - 2 tab PO Q8H PRN PRN Reason: pain Sodium Chloride (Saline Flush) 10 ml FLUSH ASDIRECTED PRN PRN Reason: Keep Vein Open Discontinued Medications Sodium Chloride (Normal Saline) 1,000 mls @ 125 mls/hr IV ASDIRECTED [facility] Last Admin: 03/27/18 07:38 Dose: 125 mls/hr Sodium Chloride (Normal Saline) Confirm Administered Dose 150 mls @ as directed .ROUTE .STK-MED ONE Stop: 03/27/18 12:17 Last Admin: 03/27/18 15:48 Dose: Not Given Oxycodone/Acetaminophen (Percocet 325-5 Mg) 1 tab PO TID PRN PRN Reason: Pain Last Admin: 03/26/18 15:01 Dose: 1 tab Oxycodone/Acetaminophen (Percocet 325-5 Mg) 2 tab PO TID PRN PRN Reason: Pain Last Admin: 03/28/18 05:14 Dose: 2 tab Piperacillin Sod/Tazobactam Sod (Zosyn) Confirm Administered Dose 3.375 gm .ROUTE .STK-MED ONE Stop: 03/27/18 17:26 Last Admin: 03/27/18 17:50 Dose: Not Given - Exam General: Alert, Oriented Neck: Supple Lungs: Clear to Auscultation, Normal Respiratory Effort Cardiovascular: Regular Rate, Regular Rhythm GI/Abdominal Exam: Normal Bowel Sounds, Soft, Non-Tender Extremities: Other (right foot is red from toes to ankle, warm to the touch. Has hard callus surrounding the previous wound which is now scabbed over. Nontender, does have feeling to the sole of his foot somewhat. ) Skin: Warm, Dry Neurological: No New Focal Deficit - Problem List & Annotations (1) Cellulitis in diabetic foot SNOMED Code(s): 448714337 Code(s): E11.628 - TYPE 2 DIABETES MELLITUS WITH OTHER SKIN COMPLICATIONS; L03.119 - CELLULITIS OF UNSPECIFIED PART OF LIMB Status: Acute Priority: High Current Visit: Yes - Problem List Review Problem List Initiated/Reviewed/Updated: Yes - My Orders Last 24 Hours: My Active Orders 03/28/18 11:15 Acetaminophen/oxyCODONE [Percocet 325-5 MG] 1 - 2 tab PO Q8H PRN 03/29/18 05:11 C-REACTIVE PROTEIN [CHEM] AM - Assessment Assessment:: Diabetic foot ulcer - Plan Plan:: 03/26/18 This patient was admitted to the hospital yesterday for right foot wound with surrounding erythema cellulitis. The patient today has fever. He reports pain in the right foot that is improved with Percocet, but reports still having some pain. I have increased his Percocet for pain due to obvious infection. The patient WBC today is 12.8, Glucose is 190, and CRP is 11.2. Will continue the same plan of admit and abx for this patient. I have ordered an Xray to ensure no FB in the wound. Patient does not recall how he obtained the ulcer on this foot. Although, he is a diabetic that is not well controlled. 03/27/18 This patient was admitted to the hospital [facility] for right foot wound with surrounding erythema cellulitis. The patient today has NO fever. He reports pain in the right foot that is improved with Percocet, but reports still having some pain. He has requested more pain medication. I have instructed him that we have already increased his pain medication and his infection is improving. At this time, we will hold on adding or increasing his pain medications. The patient is laying in bed and appears comfortable. The p[atient labs today is wbc 12.6. THe patient is alert and oriented. Will continue admission on IV abx, wait on CX results from wound. He will be seen again tomorrow and evaluated. 03-28-2018 Patient stable, continues to complain of pain in his right foot. Minimal feeling to the actual wound site due to his long standing uncontrolled diabetes. He did have low grade temp at 0400 but afebrile since. Wound culture shows staph aureus and group B strep, no sensitivities to Zosyn. WBC increased to 13.7 today, CRP up slightly to 13.5. Dr. Shirley did do I & D of area. Able to get small amount of purulent drainage from the wound. Will have physical therapy see him to soak the wound. Switch to IV Levaquin. Repeat labs in am, possibly home if remains afebrile and labs improve.
[2018-03-28] MEDS ORDERED: Levofloxacin/Dextrose 5%-Water 500 MG in Premix Bag 1 BAG IV SCH (12:30)
[2018-03-28] MEDS: Levofloxacin/Dextrose 5%-Water 500 MG in Premix Bag 1 BAG IV SCH (13:10)
[2018-03-28] MEDS: Insulin Glarg,Human.Rec.Analog 100 UNIT/ML ML SUBCUT SCH (20:50)
[2018-03-29] MEDS: Ketorolac 30 MG/ML SDV IV PRN ×4 (00:31→21:57)
[2018-03-29] MEDS: Acetaminophen 325 MG Tab PO PRN ×3 (00:33→21:57)
[2018-03-29] MEDS: Acetaminophen/oxyCODONE 325-5 MG Tab PO PRN ×3 (02:01→18:33)
[2018-03-29] MEDS: Lisinopril 20 MG Tab PO SCH (07:31)
[2018-03-29] MEDS: Gabapentin 300 MG Cap PO SCH ×3 (07:31→20:03)
[2018-03-29] MEDS: metFORMIN 500 MG Tab PO SCH (07:32)
[2018-03-29 07:33] LABS: CHLORIDE,CL 101 mEq/L (98-106); SODIUM,NA 138 mEq/L (136-145)
[2018-03-29] MEDS: Insulin Aspart 100 Units/ML 3 ML Pen SUBCUT SCH ×4 (09:45→20:03)
[2018-03-29] MEDS: Nicotine 21 MG/24 Hr Patch TRDERM SCH (09:45)
[2018-03-29] MEDS: Levofloxacin/Dextrose 5%-Water 500 MG in Premix Bag 1 BAG IV SCH (12:08)
[2018-03-29] MEDS: Insulin Glarg,Human.Rec.Analog 100 UNIT/ML ML SUBCUT SCH (20:03)
--- NOTE | 2018-03-29 21:12 | PCM.PN ---
- General Info Date of Service: 03/29/18 Admission Dx/Problem (Free Text): Diabetic Foot Ulcer Functional Status: Reports: Pain Controlled, Tolerating Diet, Ambulating - Review of Systems General: Reports: Fever HEENT: Reports: No Symptoms Pulmonary: Denies: Shortness of Breath, Cough Cardiovascular: Denies: Chest Pain, Lightheadedness Gastrointestinal: Denies: Abdominal Pain, Nausea, Vomiting Genitourinary: Reports: No Symptoms Musculoskeletal: Reports: Back Pain, Foot Pain Skin: Reports: Other ( redness noted to right foot. Blanching and callus noted to bottom of right foot. Tender ) Psychiatric: Reports: No Symptoms - Patient Data Vitals - Most Recent: Last Vital Signs Temp 99.2 F 03/29/18 19:46 Pulse 102 H 03/29/18 19:46 Resp 16 03/29/18 19:46 BP 143/88 H 03/29/18 19:46 Pulse Ox 97 03/29/18 19:46 Weight - Most Recent: 150 lb 14.4 oz Lab Results Last 24 Hours: Laboratory Results - last 24 hr 03/29/18 03/29/18 03/29/18 Range/Units 00:17 07:00 07:00 WBC 14.5 H (5.0-10.0) 10^3/uL RBC 3.52 L (4.50-6.00) 10^6/uL Hgb 11.0 L (14.0-18.0) g/dL Hct 32.6 L (40.0-54.0) % MCV 92.6 (82.0-94.0) fL MCH 31.3 (27.0-32.0) pg MCHC 33.7 (33.0-38.0) g/dL RDW Coeff of Ludmila 11.9 (11.0-15.0) % Plt Count 370 (150-400) 10^3/uL Neut % (Auto) 74.4 (35-85) % Lymph % (Auto) 14.2 (10-55) % Jay % (Auto) 9.9 (0-16) % Eos % (Auto) 1.2 (0-5) % Baso % (Auto) 0.3 (0-3) % Neut # (Auto) 10.77 H (1.80-7.00) 10^3/uL Lymph # (Auto) 2.06 (1.00-4.80) 10^3/uL Jay # (Auto) 1.44 H (0.00-0.80) 10^3/uL Eos # (Auto) 0.17 (0.00-0.45) 10^3/uL Baso # (Auto) 0.04 10^3/uL Sodium 138 (136-145) mEq/L Potassium 3.5 (3.5-5.0) mEq/L Chloride 101 (98-106) mEq/L Carbon Dioxide 30 (21-32) mmol/L BUN 17 (7-18) mg/dL Creatinine 0.8 (0.7-1.3) mg/dL Est Cr Clr Drug Dosing 117.64 mL/min Estimated GFR (MDRD) > 60 (>=60) mL/min Glucose 144 H D (75-99) mg/dL POC Glucose 405 H* (75-105) mg/dl Calcium 8.7 (8.4-10.1) mg/dL C-Reactive Protein 13.8 H (0.2-0.8) mg/dL 03/29/18 03/29/18 03/29/18 Range/Units 08:04 11:36 17:00 WBC (5.0-10.0) 10^3/uL RBC (4.50-6.00) 10^6/uL Hgb (14.0-18.0) g/dL Hct (40.0-54.0) % MCV (82.0-94.0) fL MCH (27.0-32.0) pg MCHC (33.0-38.0) g/dL RDW Coeff of Ludmila (11.0-15.0) % Plt Count (150-400) 10^3/uL Neut % (Auto) (35-85) % Lymph % (Auto) (10-55) % Jay % (Auto) (0-16) % Eos % (Auto) (0-5) % Baso % (Auto) (0-3) % Neut # (Auto) (1.80-7.00) 10^3/uL Lymph # (Auto) (1.00-4.80) 10^3/uL Jay # (Auto) (0.00-0.80) 10^3/uL Eos # (Auto) (0.00-0.45) 10^3/uL Baso # (Auto) 10^3/uL Sodium (136-145) mEq/L Potassium (3.5-5.0) mEq/L Chloride (98-106) mEq/L Carbon Dioxide (21-32) mmol/L BUN (7-18) mg/dL Creatinine (0.7-1.3) mg/dL Est Cr Clr Drug Dosing mL/min Estimated GFR (MDRD) (>=60) mL/min Glucose (75-99) mg/dL POC Glucose 127 H 308 H 259 H (75-105) mg/dl Calcium (8.4-10.1) mg/dL C-Reactive Protein (0.2-0.8) mg/dL 03/29/18 Range/Units 20:02 WBC (5.0-10.0) 10^3/uL RBC (4.50-6.00) 10^6/uL Hgb (14.0-18.0) g/dL Hct (40.0-54.0) % MCV (82.0-94.0) fL MCH (27.0-32.0) pg MCHC (33.0-38.0) g/dL RDW Coeff of Ludmila (11.0-15.0) % Plt Count (150-400) 10^3/uL Neut % (Auto) (35-85) % Lymph % (Auto) (10-55) % Jay % (Auto) (0-16) % Eos % (Auto) (0-5) % Baso % (Auto) (0-3) % Neut # (Auto) (1.80-7.00) 10^3/uL Lymph # (Auto) (1.00-4.80) 10^3/uL Jay # (Auto) (0.00-0.80) 10^3/uL Eos # (Auto) (0.00-0.45) 10^3/uL Baso # (Auto) 10^3/uL Sodium (136-145) mEq/L Potassium (3.5-5.0) mEq/L Chloride (98-106) mEq/L Carbon Dioxide (21-32) mmol/L BUN (7-18) mg/dL Creatinine (0.7-1.3) mg/dL Est Cr Clr Drug Dosing mL/min Estimated GFR (MDRD) (>=60) mL/min Glucose (75-99) mg/dL POC Glucose 290 H (75-105) mg/dl Calcium (8.4-10.1) mg/dL C-Reactive Protein (0.2-0.8) mg/dL Med Orders - Current: Current Medications Acetaminophen (Tylenol) 650 mg PO Q4H PRN PRN Reason: Pain (Mild 1-3)/fever Last Admin: 03/29/18 07:47 Dose: 650 mg Gabapentin (Neurontin) 300 mg PO TID [facility] Last Admin: 03/29/18 20:03 Dose: 300 mg Levofloxacin/Dextrose 500 mg/ (Premix) 100 mls @ 100 mls/hr IV 1200 [facility] Last Admin: 03/29/18 12:08 Dose: 100 mls/hr Insulin Aspart (Novolog) 0 unit SUBCUT WITHMEALSANDBED [facility]; Protocol Last Admin: 03/29/18 20:03 Dose: 9 units Insulin Glargine (Lantus) 40 unit SUBCUT BEDTIME [facility] Last Admin: 03/29/18 20:03 Dose: 40 units Ketorolac Tromethamine (Toradol) 30 mg IV Q6H PRN PRN Reason: Pain (moderate 4-6) Last Admin: 03/29/18 15:04 Dose: 30 mg Lisinopril (Prinivil) 20 mg PO DAILY [facility] Last Admin: 03/29/18 07:31 Dose: 20 mg Metformin HCl (Glucophage) 1,000 mg PO DAILY [facility] Last Admin: 03/29/18 07:32 Dose: 1,000 mg Nicotine (Habitrol) 21 mg TRDERM DAILY [facility] Last Admin: 03/29/18 09:45 Dose: Not Given Oxycodone/Acetaminophen (Percocet 325-5 Mg) 1 - 2 tab PO Q8H PRN PRN Reason: pain Last Admin: 03/29/18 18:33 Dose: 2 tab Sodium Chloride (Saline Flush) 10 ml FLUSH ASDIRECTED PRN PRN Reason: Keep Vein Open Discontinued Medications Piperacillin Sod/Tazobactam (Sod 3.375 gm/ Sodium Chloride) 50 mls @ 100 mls/ hr IV Q6H [facility] Last Admin: 03/28/18 11:54 Dose: 100 mls/hr Sodium Chloride (Normal Saline) 1,000 mls @ 125 mls/hr IV ASDIRECTED [facility] Last Admin: 03/27/18 07:38 Dose: 125 mls/hr Sodium Chloride (Normal Saline) Confirm Administered Dose 150 mls @ as directed .ROUTE .STK-MED ONE Stop: 03/27/18 12:17 Last Admin: 03/27/18 15:48 Dose: Not Given Levofloxacin/Dextrose 500 mg/ (Premix) 100 mls @ 100 mls/hr IV Q24H [facility] Last Admin: 03/28/18 13:10 Dose: Not Given Oxycodone/Acetaminophen (Percocet 325-5 Mg) 1 tab PO TID PRN PRN Reason: Pain Last Admin: 03/26/18 15:01 Dose: 1 tab Oxycodone/Acetaminophen (Percocet 325-5 Mg) 2 tab PO TID PRN PRN Reason: Pain Last Admin: 03/28/18 05:14 Dose: 2 tab Piperacillin Sod/Tazobactam Sod (Zosyn) Confirm Administered Dose 3.375 gm .ROUTE .STK-MED ONE Stop: 03/27/18 17:26 Last Admin: 03/27/18 17:50 Dose: Not Given - Exam General: Alert, Oriented HEENT: Mucous Membr. Moist/[place] Neck: Supple Lungs: Clear to Auscultation, Normal Respiratory Effort Cardiovascular: Regular Rate, Regular Rhythm GI/Abdominal Exam: Normal Bowel Sounds, Soft, Non-Tender Extremities: Increased Warmth, Redness, Other (Wound scabbed over, skin is taut , swollen and blanched around it. Large callus noted. Does remain tender in this area.) Wound/Incisions: Erythema Improving Neurological: No New Focal Deficit - Problem List & Annotations (1) Cellulitis in diabetic foot SNOMED Code(s): 319516296 Code(s): E11.628 - TYPE 2 DIABETES MELLITUS WITH OTHER SKIN COMPLICATIONS; L03.119 - CELLULITIS OF UNSPECIFIED PART OF LIMB Status: Acute Priority: High Current Visit: Yes - Problem List Review Problem List Initiated/Reviewed/Updated: Yes - My Orders Last 24 Hours: My Active Orders 03/29/18 09:07 Extremity Non Vascular Rt [US] Routine - Assessment Assessment:: Diabetic foot ulcer - Plan Plan:: 03/26/18 This patient was admitted to the hospital yesterday for right foot wound with surrounding erythema cellulitis. The patient today has fever. He reports pain in the right foot that is improved with Percocet, but reports still having some pain. I have increased his Percocet for pain due to obvious infection. The patient WBC today is 12.8, Glucose is 190, and CRP is 11.2. Will continue the same plan of admit and abx for this patient. I have ordered an Xray to ensure no FB in the wound. Patient does not recall how he obtained the ulcer on this foot. Although, he is a diabetic that is not well controlled. 03/27/18 This patient was admitted to the hospital [facility] for right foot wound with surrounding erythema cellulitis. The patient today has NO fever. He reports pain in the right foot that is improved with Percocet, but reports still having some pain. He has requested more pain medication. I have instructed him that we have already increased his pain medication and his infection is improving. At this time, we will hold on adding or increasing his pain medications. The patient is laying in bed and appears comfortable. The p[atient labs today is wbc 12.6. THe patient is alert and oriented. Will continue admission on IV abx, wait on CX results from wound. He will be seen again tomorrow and evaluated. 03-28-2018 Patient stable, continues to complain of pain in his right foot. Minimal feeling to the actual wound site due to his long standing uncontrolled diabetes. He did have low grade temp at 0400 but afebrile since. Wound culture shows staph aureus and group B strep, no sensitivities to Zosyn. WBC increased to 13.7 today, CRP up slightly to 13.5. Dr. Shirley did do I & D of area. Able to get small amount of purulent drainage from the wound. Will have physical therapy see him to soak the wound. Switch to IV Levaquin. Repeat labs in am, possibly home if remains afebrile and labs improve. 03-29-2108 Patient concerned this am due to sensation still having foreign body in foot as foot not improving. He states feels like "more than just soreness in there from a cut". He did have xrays done this weekend but were negative for any notable foreign body. Foot does remain red, tender with warmth. Cut is dry this am. WBC has increased again to 14.5, CRP increased to 13.8. Did spike a fever of 101.8 during the night. Blood pressure elevated this am. Will proceed with ultrasound of foot this am to determine if foreign object or abscess present. Continue IV Levaquin and PT. Will follow
[2018-03-30] MEDS: Acetaminophen/oxyCODONE 325-5 MG Tab PO PRN ×2 (02:35→11:02)
[2018-03-30] MEDS: Ketorolac 30 MG/ML SDV IV PRN (06:35)
[2018-03-30 08:31] VITALS: BP 146/76
[2018-03-30] MEDS: metFORMIN 500 MG Tab PO SCH (08:32)
[2018-03-30] MEDS: Gabapentin 300 MG Cap PO SCH (08:32)
[2018-03-30] MEDS: Lisinopril 20 MG Tab PO SCH (08:33)
[2018-03-30] MEDS: Insulin Aspart 100 Units/ML 3 ML Pen SUBCUT SCH (08:33)
[2018-03-30] MEDS: Nicotine 21 MG/24 Hr Patch TRDERM SCH (08:35)
[2018-03-30 08:45] LABS: CHLORIDE,CL 98 mEq/L (98-106); SODIUM,NA 135 mEq/L (136-145)
[2018-03-30] MEDS: Levofloxacin/Dextrose 5%-Water 500 MG in Premix Bag 1 BAG IV SCH (11:03)
--- NOTE | 2018-03-30 20:07 | PCM.DCSUM1 ---
Discharge Summary - Hospital Course Free Text/Narrative:: Arvin presented to ER with concerns of an infection in his right foot. States he had noted it about 4 days prior to coming in but it continued to get worse. 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 Reports he was walking around his home barefoot and questions if he got a piece of glass in his foot. He had tried to apply liquid bandage to the foot but now notes increased redness, swelling up his leg. Initial WBC 13, CRP 10.3. Culture was obtained from the wound. He did have an evaluation by Dr. Pierre and did not feel there was a need for surgical drainage. Admitted for IV antibiotics and blood sugar control. Diagnosis: Stroke: No Modified [place]wood Scale: No Symptoms at All Modified [place] Scale Score: 0 - Discharge Data Discharge Date: 03/30/18 Discharge Disposition: Home, Self-Care 01 Condition: Good - Discharge Diagnosis/Problem(s) (1) Cellulitis in diabetic foot SNOMED Code(s): 154234313 ICD Code: E11.628 - TYPE 2 DIABETES MELLITUS WITH OTHER SKIN COMPLICATIONS; L03.119 - CELLULITIS OF UNSPECIFIED PART OF LIMB Status: Acute Priority: High - Patient Summary/Data Complications: none Consults: Consultations 03/25/18 17:38 PT Evaluation and Treatment [CONS] Routine 03/28/18 12:19 Consult to Physical Therapy [PT Evaluation and Treatment] [CONS] Routine Hospital Course: Patient was admitted due to wound on his right foot after stepping on possibly a foreign object. Had noted an open wound that he initially tried to put liquid bandage on. Over 3 to 4 days, patient had noted that the redness in his foot had gotten much worse. Was admitted and started on Zosyn. WBC steadily increased over several days during hospitalization as well as CRP. Wound culture was positive for strep and staph. No sensitivities noted to Zosyn so was switched to IV Levaquin. Now on day 4 and 5, finally seeing improvement in the redness and swelling of the foot. Dr. Shirley did I & D the foot with small amount of purulent drainage but patient continued to feel the presence of a foreign body. Ultrasound was done but not conclusive so did proceed with MRI of his foot. No foreign object or abscess noted, soft tissue swelling noted. Despite WBC and CRP increasing, foot is improving and patient is adamant about being discharged home. Blood sugars do continue to vary around 200s. Will come in for daily IV Levaquin and we will repeat his labs later this week. - Patient Instructions Diet: Diabetic Diet Activity: As Tolerated - Discharge Plan *PRESCRIPTION DRUG MONITORING PROGRAM REVIEWED*: No *COPY OF PRESCRIPTION DRUG MONITORING REPORT IN PATIENT NEELAM: No Prescriptions/Med Rec: Levofloxacin/Dextrose 5%-Water [Levaquin in D5W 500 MG/100 ML] 500 mg IV 1200 # 7 bag Home Medications: Home Meds Insulin Aspart [NovoLOG] 10 unit SQ QIDACANDBED 04/01/13 [History] Acetaminophen/oxyCODONE [Percocet 325-5 MG] 1 tab PO TID PRN 04/07/13 [History] Gabapentin [Neurontin] 300 mg PO TID 12/06/16 [History] Insulin Glargine,Hum.Rec.Anlog [Basaglar Kwikpen U-100] 40 unit SQ BEDTIME 03/25 [History] Lisinopril 20 mg PO DAILY 03/25/18 [History] metFORMIN [Glucophage] 1,000 mg PO DAILY 03/25/18 [History] Levofloxacin/Dextrose 5%-Water [Levaquin in D5W 500 MG/100 ML] 500 mg IV 1200 # 7 bag 03/30/18 [Rx] Oxygen Therapy Mode: Nasal Cannula Patient Handouts: Cellulitis, Adult Forms: ED Department Discharge Referrals: Talon Adrian PA-C [Primary Care Provider] - (Hospital follow up with Earl Adrian in one week) - Discharge Summary/Plan Comment DC Time >30 min.: No Discharge Summary/Plan Comment: Discharge home Continue IV Levaquin as an outpatient daily for 7 more days. Repeat labs later this week. - General Info Date of Service: 03/30/18 Admission Dx/Problem (Free Text: Diabetic Foot Ulcer Functional Status: Reports: Pain Controlled, Tolerating Diet, Ambulating - Review of Systems General: Denies: Fever, Weakness, Fatigue HEENT: Reports: No Symptoms Pulmonary: Denies: Shortness of Breath, Cough Cardiovascular: Denies: Chest Pain, Edema, Lightheadedness Gastrointestinal: Denies: Abdominal Pain, Nausea, Vomiting Genitourinary: Reports: No Symptoms Musculoskeletal: Reports: Foot Pain Skin: Reports: Other (wound right foot) Neurological: Reports: No Symptoms - Patient Data Vitals - Most Recent: Last Vital Signs Temp 97.8 F 03/30/18 08:00 Pulse 94 03/30/18 08:00 Resp 18 03/30/18 08:00 BP 146/76 H 03/30/18 08:33 Pulse Ox 100 03/30/18 08:00 Weight - Most Recent: 150 lb 14.4 oz Lab Results - Last 24 hrs: Laboratory Results - last 24 hr 03/29/18 03/29/18 03/30/18 Range/Units 20:02 23:55 07:37 WBC (5.0-10.0) 10^3/uL RBC (4.50-6.00) 10^6/uL Hgb (14.0-18.0) g/dL Hct (40.0-54.0) % MCV (82.0-94.0) fL MCH (27.0-32.0) pg MCHC (33.0-38.0) g/dL RDW Coeff of Ludmila (11.0-15.0) % Plt Count (150-400) 10^3/uL Neut % (Auto) (35-85) % Lymph % (Auto) (10-55) % [place] % (Auto) (0-16) % Eos % (Auto) (0-5) % Baso % (Auto) (0-3) % Neut # (Auto) (1.80-7.00) 10^3/uL Lymph # (Auto) (1.00-4.80) 10^3/uL [place] # (Auto) (0.00-0.80) 10^3/uL Eos # (Auto) (0.00-0.45) 10^3/uL Baso # (Auto) 10^3/uL Sodium (136-145) mEq/L Potassium (3.5-5.0) mEq/L Chloride (98-106) mEq/L Carbon Dioxide (21-32) mmol/L BUN (7-18) mg/dL Creatinine (0.7-1.3) mg/dL Est Cr Clr Drug Dosing mL/min Estimated GFR (MDRD) (>=60) mL/min Glucose (75-99) mg/dL POC Glucose 290 H 312 H 218 H (75-105) mg/dl Calcium (8.4-10.1) mg/dL C-Reactive Protein (0.2-0.8) mg/dL 03/30/18 03/30/18 Range/Units 08:20 08:20 WBC 14.8 H (5.0-10.0) 10^3/uL RBC 3.65 L (4.50-6.00) 10^6/uL Hgb 11.3 L (14.0-18.0) g/dL Hct 34.7 L (40.0-54.0) % MCV 95.1 H (82.0-94.0) fL MCH 31.0 (27.0-32.0) pg MCHC 32.6 L (33.0-38.0) g/dL RDW Coeff of Ludmila 12.4 (11.0-15.0) % Plt Count 402 H (150-400) 10^3/uL Neut % (Auto) 77.4 (35-85) % Lymph % (Auto) 11.0 (10-55) % [place] % (Auto) 10.0 (0-16) % Eos % (Auto) 1.3 (0-5) % Baso % (Auto) 0.3 (0-3) % Neut # (Auto) 11.47 H (1.80-7.00) 10^3/uL Lymph # (Auto) 1.63 (1.00-4.80) 10^3/uL [place] # (Auto) 1.49 H (0.00-0.80) 10^3/uL Eos # (Auto) 0.20 (0.00-0.45) 10^3/uL Baso # (Auto) 0.05 10^3/uL Sodium 135 L (136-145) mEq/L Potassium 4.2 (3.5-5.0) mEq/L Chloride 98 (98-106) mEq/L Carbon Dioxide 30 (21-32) mmol/L BUN 15 (7-18) mg/dL Creatinine 0.8 (0.7-1.3) mg/dL Est Cr Clr Drug Dosing 117.64 mL/min Estimated GFR (MDRD) > 60 (>=60) mL/min Glucose 242 H D (75-99) mg/dL POC Glucose (75-105) mg/dl Calcium 8.5 (8.4-10.1) mg/dL C-Reactive Protein 15.5 H (0.2-0.8) mg/dL Med Orders - Current: Current Medications Discontinued Medications Acetaminophen (Tylenol) 650 mg PO Q4H PRN PRN Reason: Pain (Mild 1-3)/fever Last Admin: 03/29/18 21:57 Dose: 650 mg Gabapentin (Neurontin) 300 mg PO TID [facility] Last Admin: 03/30/18 08:32 Dose: 300 mg Piperacillin Sod/Tazobactam (Sod 3.375 gm/ Sodium Chloride) 50 mls @ 100 mls/ hr IV Q6H [facility] Last Admin: 03/28/18 11:54 Dose: 100 mls/hr Sodium Chloride (Normal Saline) 1,000 mls @ 125 mls/hr IV ASDIRECTED [facility] Last Admin: 03/27/18 07:38 Dose: 125 mls/hr Sodium Chloride (Normal Saline) Confirm Administered Dose 150 mls @ as directed .ROUTE .STK-MED ONE Stop: 03/27/18 12:17 Last Admin: 03/27/18 15:48 Dose: Not Given Levofloxacin/Dextrose 500 mg/ (Premix) 100 mls @ 100 mls/hr IV Q24H [facility] Last Admin: 03/28/18 13:10 Dose: Not Given Levofloxacin/Dextrose 500 mg/ (Premix) 100 mls @ 100 mls/hr IV 1200 [facility] Last Admin: 03/30/18 11:03 Dose: 100 mls/hr Insulin Aspart (Novolog) 0 unit SUBCUT WITHMEALSANDBED [facility]; Protocol Last Admin: 03/30/18 08:33 Dose: 6 units Insulin Glargine (Lantus) 40 unit SUBCUT BEDTIME [facility] Last Admin: 03/29/18 20:03 Dose: 40 units Ketorolac Tromethamine (Toradol) 30 mg IV Q6H PRN PRN Reason: Pain (moderate 4-6) Last Admin: 03/30/18 06:35 Dose: 30 mg Lisinopril (Prinivil) 20 mg PO DAILY [facility] Last Admin: 03/30/18 08:33 Dose: 20 mg Metformin HCl (Glucophage) 1,000 mg PO DAILY [facility] Last Admin: 03/30/18 08:32 Dose: 1,000 mg Nicotine (Habitrol) 21 mg TRDERM DAILY [facility] Last Admin: 03/30/18 08:35 Dose: Not Given Oxycodone/Acetaminophen (Percocet 325-5 Mg) 1 tab PO TID PRN PRN Reason: Pain Last Admin: 03/26/18 15:01 Dose: 1 tab Oxycodone/Acetaminophen (Percocet 325-5 Mg) 2 tab PO TID PRN PRN Reason: Pain Last Admin: 03/28/18 05:14 Dose: 2 tab Oxycodone/Acetaminophen (Percocet 325-5 Mg) 1 - 2 tab PO Q8H PRN PRN Reason: pain Last Admin: 03/30/18 11:02 Dose: 2 tab Piperacillin Sod/Tazobactam Sod (Zosyn) Confirm Administered Dose 3.375 gm .ROUTE .STK-MED ONE Stop: 03/27/18 17:26 Last Admin: 03/27/18 17:50 Dose: Not Given Sodium Chloride (Saline Flush) 10 ml FLUSH ASDIRECTED PRN PRN Reason: Keep Vein Open - Exam General: Reports: Alert, Oriented HEENT: Reports: Mucous Membr. Moist/[place] Neck: Reports: Supple Lungs: Reports: Clear to Auscultation, Normal Respiratory Effort Cardiovascular: Reports: Regular Rate, Regular Rhythm GI/Abdominal Exam: Normal Bowel Sounds, Soft, Non-Tender Extremities: Increased Warmth, Redness, Other (right foot does have ongoing redness but is improved. Is tender to the wound to the sole of his foot. Swelling has improved.)
== END 2018-03-30 11:13 | disposition home or self-care (01) | DRG 380 ==
LOC: CC.ED 15:42 → CC.MS 16:48 → UNDOADMIN 16:48 → CC.MS 17:24
PROVIDERS: ADMIT Physician Assistant Medical; ATTEND Family Medicine
PROC: 0H9MXZZ Drainage of Right Foot Skin, External Approach (ICD-10-PCS; principal; 2018-03-28)
DX: E11.628 Type 2 diabetes mellitus with other skin complications (principal); L97.519 Non-pressure chronic ulcer of other part of right foot with unspecified severity; E11.40 Type 2 diabetes mellitus with diabetic neuropathy, unspecified; E11.621 Type 2 diabetes mellitus with foot ulcer; L03.115 Cellulitis of right lower limb; B95.61 Methicillin susceptible Staphylococcus aureus infection as the cause of diseases classified elsewhere; B95.1 Streptococcus, group B, as the cause of diseases classified elsewhere; I10 Essential (primary) hypertension; G89.29 Other chronic pain; M54.9 Dorsalgia, unspecified; F41.9 Anxiety disorder, unspecified; F32.9 Major depressive disorder, single episode, unspecified; F17.200 Nicotine dependence, unspecified, uncomplicated; Z79.899 Other long term (current) drug therapy; Z79.4 Long term (current) use of insulin; Z88.6 Allergy status to analgesic agent
CPT/HCPCS: 36415; 73620-RT; 73720-RT; 76881-RT; 80048; 82962; 85025; 86140; 87070; 87077; 87186; 97022-GP; 97116-GP; 97161-GP; 99284; A9270-GY; J1815-GY; J1885; J1956; J2543; J7030; J7050

== ENCOUNTER 2018-04-09 17:54 | Emergency (ER) | payer BC, MEDICAID ==
--- NOTE | 2018-04-09 18:18 | EDM.PDOC ---
ED HPI GENERAL MEDICAL PROBLEM - General Chief Complaint: General Stated Complaint: weak Time Seen by Provider: 04/09/18 18:10 Source of Information: Reports: Patient History Limitations: Reports: No Limitations - History of Present Illness INITIAL COMMENTS - FREE TEXT/NARRATIVE: in with c/o feeling weak and not eating or drinking since yesterday, pt was seen in this ED 2 weeks ago and then in another ED last week, he did have a procedure to his right foot from where "they cut out a sore", the skin appears to flaking off, small amount of redness without drainage, all sutures appear to be broken. Onset: Gradual Duration: Other (sx x 2 days) Location: Reports: Generalized Severity: Moderate Improves with: Reports: None Worsens with: Reports: None Associated Symptoms: Reports: Loss of Appetite, Weakness. Denies: Confusion, Chest Pain, Cough, Fever/Chills, Headaches, Nausea/Vomiting, Rash, Shortness of Breath Treatments DESIGN ASSISTANT: Reports: Other (see below) (none) - Related Data Allergies Allergy/AdvReac Type Severity Reaction Status Date / Time codeine Allergy Hives Verified 04/09/18 17:59 Home Meds: Home Meds Insulin Aspart [NovoLOG] 10 unit SQ QIDACANDBED 04/01/13 [History] Acetaminophen/oxyCODONE [Percocet 325-5 MG] 1 tab PO TID PRN 04/07/13 [History] Gabapentin [Neurontin] 300 mg PO TID 12/06/16 [History] Insulin Glargine,Hum.Rec.Anlog [Basaglar Kwikpen U-100] 40 unit SQ BEDTIME 03/25 [History] Lisinopril 20 mg PO DAILY 03/25/18 [History] metFORMIN [Glucophage] 1,000 mg PO DAILY 03/25/18 [History] levoFLOXacin [Levaquin] 250 mg PO DAILY 04/09/18 [History] Past Medical History Cardiovascular History: Reports: Hypertension Musculoskeletal History: Reports: Back Pain, Chronic Neurological History: Reports: Neuropathy, Diabetic Psychiatric History: Reports: Anxiety, Depression Endocrine/Metabolic History: Reports: Diabetes, Type I Dermatologic History: Reports: Other (See Below) Other Dermatologic History: diabetic ulcer to posterior right foot - Past Surgical History Cardiovascular Surgical History: Reports: None Endocrine Surgical History: Reports: None Neurological Surgical History: Reports: None Musculoskeletal Surgical History: Reports: None Dermatological Surgical History: Reports: None Social & Family History - Family History Family Medical History: Noncontributory Cardiac: Reports: Hypertension - Tobacco Use Smoking Status *Q: Current Every Day Smoker Years of Tobacco use: 20 Packs/Tins Daily: 0.5 - Caffeine Use Caffeine Use: Reports: Energy Drinks - Recreational Drug Use Recreational Drug Type: Reports: Marijuana/Hashish Recreational Drug Use Frequency: Weekly ED ROS GENERAL - Review of Systems Review Of Systems: See Below Constitutional: Reports: Weakness, Decreased Appetite. Denies: Fever, Chills HEENT: Reports: No Symptoms. Denies: Rhinitis, Throat Pain Respiratory: Reports: No Symptoms. Denies: Shortness of Breath Cardiovascular: Reports: No Symptoms. Denies: Chest Pain Endocrine: Reports: No Symptoms GI/Abdominal: Reports: No Symptoms. Denies: Abdominal Pain, Diarrhea : Reports: No Symptoms Musculoskeletal: Reports: No Symptoms. Denies: Neck Pain, Back Pain Skin: Reports: No Symptoms Neurological: Reports: No Symptoms. Denies: Dizziness, Headache Psychiatric: Reports: No Symptoms Hematologic/Lymphatic: Reports: No Symptoms Immunologic: Reports: No Symptoms ED EXAM, GENERAL - Physical Exam Exam: See Below Exam Limited By: No Limitations General Appearance: Alert, WD/WN, Mild Distress, Thin Ears: Normal External Exam, Normal Canal, Hearing Grossly Normal, Normal TMs Ear Exam: Bilateral Ear: Auricle Normal, Canal Normal, TM normal Nose: Normal Inspection, Normal Mucosa Throat/Mouth: Normal Inspection, Normal Lips, Normal Oropharynx, Normal Voice, No Airway Compromise Head: Atraumatic, Normocephalic Neck: Normal Inspection, Supple, Non-Tender, Full Range of Motion Respiratory/Chest: No Respiratory Distress, Lungs Clear, Normal Breath Sounds, No Accessory Muscle Use, Chest Non-Tender Cardiovascular: Normal Peripheral Pulses, Regular Rate, Rhythm, No Edema, No Murmur GI/Abdominal: Normal Bowel Sounds, Soft, Non-Tender, No Distention Back Exam: Normal Inspection, Full Range of Motion Extremities: Normal Inspection, Normal Range of Motion, Non-Tender, No Pedal Edema, Normal Capillary Refill Neurological: Alert, Oriented, Normal Cognition, Normal Gait, No Motor/Sensory Deficits Psychiatric: Normal Affect, Normal Mood Skin Exam: Warm, Dry, Intact, Normal Color, No Rash Course - Vital Signs Text/Narrative:: 195 the pt was evaluated in the ED and appears to be in DKA, he is giving a 2Liter bolus of NS and has been given 7units of HR insulin IV and started on a 7 Unit of HR insulin drip per hour, [facility] has been called to discuss transfer, I spoke with Rosa who transferred me to [facility] and who will get the hospitalist for me [address] Morley the hospitalist and he will accept the pt. see nursing notes for details of transfer Last Recorded V/S: Last Vital Signs Temp 36.4 C 04/09/18 20:26 Pulse 104 H 04/09/18 20:26 Resp 16 04/09/18 20:26 BP 136/63 04/09/18 20:26 Pulse Ox 100 04/09/18 20:26 - Orders/Labs/Meds Orders: Active Orders 24 hr Category Date Time Status CULTURE BLOOD [BC] Stat Lab 04/09/18 19:15 Received CULTURE BLOOD [BC] Stat Lab 04/09/18 19:30 Received Insulin Regular, Human [NovoLIN R] 100 unit Med 04/09/18 19:45 Active Sodium Chloride 0.9% [Normal Saline] 99 ml IV TITRATE Ondansetron [Zofran] Med 04/09/18 18:58 Active 4 mg IVPUSH Q6H PRN Sodium Chloride 0.9% [Normal Saline] 1,000 ml Med 04/09/18 19:38 Active IV .BOLUS Sodium Chloride 0.9% [Normal Saline] 1,000 ml Med 04/09/18 20:30 Active IV ASDIRECTED Blood Culture x2 Reflex Set [OM.PC] Stat Oth 04/09/18 19:12 Ordered Medication Orders Sodium Chloride (Normal Saline) 1,000 mls @ 999 mls/hr IV .BOLUS ONE Stop: 04/09/18 20:38 Last Admin: 04/09/18 20:06 Dose: 999 mls/hr Insulin Human Regular 100 unit (/ Sodium Chloride) 100 mls @ 6.8 mls/hr IV TITRATE SAMMI; Protocol Last Admin: 04/09/18 20:07 Dose: 0.1 units/kg/hr, 6.8 mls/hr Sodium Chloride (Normal Saline) 1,000 mls @ 1,000 mls/hr IV ASDIRECTED SAMMI Ondansetron HCl (Zofran) 4 mg IVPUSH Q6H PRN PRN Reason: Nausea/Vomiting Last Admin: 04/09/18 19:11 Dose: 4 mg Labs: Laboratory Tests 04/09/18 04/09/18 04/09/18 Range/Units 18:18 18:18 18:18 WBC 18.4 H (5.0-10.0) 10^3/uL RBC 4.10 L (4.50-6.00) 10^6/uL Hgb 12.6 L (14.0-18.0) g/dL Hct 37.3 L (40.0-54.0) % MCV 91.0 (82.0-94.0) fL MCH 30.7 (27.0-32.0) pg MCHC 33.8 (33.0-38.0) g/dL RDW Coeff of Ludmila 12.6 (11.0-15.0) % Plt Count 1257 H* (150-400) 10^3/uL Neut % (Auto) 83.8 (35-85) % Lymph % (Auto) 10.6 (10-55) % [place] % (Auto) 5.1 (0-16) % Eos % (Auto) 0.1 (0-5) % Baso % (Auto) 0.4 (0-3) % Neut # (Auto) 15.42 H (1.80-7.00) 10^3/uL Lymph # (Auto) 1.94 (1.00-4.80) 10^3/uL [place] # (Auto) 0.93 H (0.00-0.80) 10^3/uL Eos # (Auto) 0.02 (0.00-0.45) 10^3/uL Baso # (Auto) 0.07 10^3/uL ABG pH (7.35-7.45) ABG pCO2 (35-45) mm/Hg0 ABG pO2 (80-100) mm/Hg ABG HCO3 (22.0-26.0) mm/L ABG O2 Saturation (95-98) % ABG Base Excess (-2.0-3.0) O2 Delivery Device Sodium 129 L (136-145) mEq/L Potassium 5.5 H D (3.5-5.0) mEq/L Chloride 90 L (98-106) mEq/L Carbon Dioxide 15 L D (21-32) mmol/L BUN 44 H D (7-18) mg/dL Creatinine 1.6 H D (0.7-1.3) mg/dL Est Cr Clr Drug Dosing 58.47 mL/min Estimated GFR (MDRD) 48 L (>=60) mL/min Glucose 627 H* D (75-99) mg/dL Lactic Acid (0.4-2.0) mmol/L Calcium 9.9 (8.4-10.1) mg/dL Total Bilirubin 0.4 (0.0-1.0) mg/dL AST 15 (15-37) U/L ALT 42 (12-78) U/L Alkaline Phosphatase 216 H (46-116) U/L C-Reactive Protein 5.0 H (0.2-0.8) mg/dL Total Protein 9.0 H (6.4-8.2) g/dL Albumin 2.7 L (3.4-5.0) g/dL Urine Color Yellow (YELLOW) Urine Appearance Clear (CLEAR) Urine pH 5.0 (4.5-8.0) Ur Specific [place] 1.015 (1.003-1.020) Urine Protein 100 H (NEGATIVE) mg/dL Urine Glucose (UA) 500 H (NEGATIVE) mg/dL Urine Ketones 80 H (NEGATIVE) mg/dL Urine Occult Blood Small H (NEGATIVE) Urine Nitrite Negative (NEGATIVE) Urine Bilirubin Negative (NEGATIVE) Urine Urobilinogen 0.2 (0.2-1.0) EU/dL Ur Leukocyte Esterase Negative (NEGATIVE) Urine RBC 5-10 H (0-5) /HPF Urine WBC Not seen (0-5) /HPF Ur Squamous Epith Cells Occasional H (NOT SEEN) /HPF Urine Bacteria Occasional H (NOT SEEN) /HPF 04/09/18 04/09/18 Range/Units 18:22 19:12 WBC (5.0-10.0) 10^3/uL RBC (4.50-6.00) 10^6/uL Hgb (14.0-18.0) g/dL Hct (40.0-54.0) % MCV (82.0-94.0) fL MCH (27.0-32.0) pg MCHC (33.0-38.0) g/dL RDW Coeff of Ludmila (11.0-15.0) % Plt Count (150-400) 10^3/uL Neut % (Auto) (35-85) % Lymph % (Auto) (10-55) % [place] % (Auto) (0-16) % Eos % (Auto) (0-5) % Baso % (Auto) (0-3) % Neut # (Auto) (1.80-7.00) 10^3/uL Lymph # (Auto) (1.00-4.80) 10^3/uL [place] # (Auto) (0.00-0.80) 10^3/uL Eos # (Auto) (0.00-0.45) 10^3/uL Baso # (Auto) 10^3/uL ABG pH 7.26 L (7.35-7.45) ABG pCO2 22 L (35-45) mm/Hg0 ABG pO2 112 H (80-100) mm/Hg ABG HCO3 9.9 L (22.0-26.0) mm/L ABG O2 Saturation 98 (95-98) % ABG Base Excess -17.0 L (-2.0-3.0) O2 Delivery Device Room air Sodium (136-145) mEq/L Potassium (3.5-5.0) mEq/L Chloride (98-106) mEq/L Carbon Dioxide (21-32) mmol/L BUN (7-18) mg/dL Creatinine (0.7-1.3) mg/dL Est Cr Clr Drug Dosing mL/min Estimated GFR (MDRD) (>=60) mL/min Glucose (75-99) mg/dL Lactic Acid 1.7 (0.4-2.0) mmol/L Calcium (8.4-10.1) mg/dL Total Bilirubin (0.0-1.0) mg/dL AST (15-37) U/L ALT (12-78) U/L Alkaline Phosphatase (46-116) U/L C-Reactive Protein (0.2-0.8) mg/dL Total Protein (6.4-8.2) g/dL Albumin (3.4-5.0) g/dL Urine Color (YELLOW) Urine Appearance (CLEAR) Urine pH (4.5-8.0) Ur Specific [place] (1.003-1.020) Urine Protein (NEGATIVE) mg/dL Urine Glucose (UA) (NEGATIVE) mg/dL Urine Ketones (NEGATIVE) mg/dL Urine Occult Blood (NEGATIVE) Urine Nitrite (NEGATIVE) Urine Bilirubin (NEGATIVE) Urine Urobilinogen (0.2-1.0) EU/dL Ur Leukocyte Esterase (NEGATIVE) Urine RBC (0-5) /HPF Urine WBC (0-5) /HPF Ur Squamous Epith Cells (NOT SEEN) /HPF Urine Bacteria (NOT SEEN) /HPF Meds: Medications Generic Name Dose Route Start Last Admin Trade Name Freq PRN Reason Stop Dose Admin Sodium Chloride 1,000 mls @ 999 mls/hr 04/09/18 19:38 04/09/18 20:06 Normal Saline IV 04/09/18 20:38 999 mls/hr .BOLUS ONE Administration Insulin Human Regular 100 unit 100 mls @ 6.8 mls/hr 04/09/18 19:45 04/09/18 20:07 / Sodium Chloride IV 0.1 units/kg/hr TITRATE SAMMI 6.8 mls/hr Administration Protocol 0.1 UNITS/KG/HR Sodium Chloride 1,000 mls @ 1,000 mls/hr 04/09/18 20:30 Normal Saline IV ASDIRECTED SAMMI Ondansetron HCl 4 mg 04/09/18 18:58 04/09/18 19:11 Zofran IVPUSH 4 mg Q6H PRN Administration Nausea/Vomiting Discontinued Medications Generic Name Dose Route Start Last Admin Trade Name Freq PRN Reason Stop Dose Admin Sodium Chloride 1,000 mls @ 1,000 mls/hr 04/09/18 18:22 04/09/18 18:48 Normal Saline IV 04/09/18 19:21 1,000 mls/hr .BOLUS ONE Administration Sodium Chloride Confirm 04/09/18 19:51 04/09/18 20:11 Normal Saline Administered 04/09/18 19:52 Not Given Dose 100 mls @ as directed .ROUTE .STK-MED ONE Insulin Human Regular 7 unit 04/09/18 19:47 04/09/18 20:06 Novolin R IVPUSH 04/09/18 19:48 7 units ONETIME ONE Administration Protocol Pantoprazole Sodium 40 mg 04/09/18 19:02 04/09/18 19:12 Protonix Iv IVPUSH 04/09/18 19:03 40 mg ONETIME ONE Administration Departure - Departure Time of Disposition: 20:10 Disposition: DC/Tfer to Acute Hospital 02 Condition: Good Clinical Impression: Ketoacidosis in diabetes mellitus, Thrombocytopenia - Discharge Information *PRESCRIPTION DRUG MONITORING PROGRAM REVIEWED*: No *COPY OF PRESCRIPTION DRUG MONITORING REPORT IN PATIENT NEELAM: No Referrals: PCP,None [Primary Care Provider] - Forms: ED Department Discharge Critical Care Note - Critical Care Note Total Time (mins): 30 Comments: started on IV insulin and communicated with accepting facility hospitalist, discussed case with pt, reviewed labs and discussed them with pt as well as tx plan ED Communication - ED Communication Date/Time Date: 04/09/18 Time Called: 19:51 - Discussed Case With (1) Discussed Case With (1): Admitting Provider (Dr. Morley) Date: 04/09/18 Time Called: 20:01 - Problem List & Annotations (1) Diabetic foot ulcer associated with type 1 diabetes mellitus SNOMED Code(s): 747878748 Code(s): E10.621 - TYPE 1 DIABETES MELLITUS WITH FOOT ULCER; L97.509 - NON- PRESSURE CHRONIC ULCER OTH PRT UNSP FOOT W UNSP SEVERITY Status: Acute Priority: High Current Visit: Yes (2) Ketoacidosis in diabetes mellitus SNOMED Code(s): 973367396 Code(s): E13.10 - OTH DIABETES MELLITUS WITH KETOACIDOSIS WITHOUT COMA Status: Acute Priority: High Current Visit: Yes (3) Thrombocytopenia SNOMED Code(s): 969495463 Code(s): D69.6 - THROMBOCYTOPENIA, UNSPECIFIED Status: Acute Current Visit: Yes - My Orders Last 24 Hours: My Active Orders 04/09/18 18:58 Ondansetron [Zofran] 4 mg IVPUSH Q6H PRN 04/09/18 19:12 Blood Culture x2 Reflex Set [OM.PC] Stat 04/09/18 19:15 CULTURE BLOOD [BC] Stat 04/09/18 19:30 CULTURE BLOOD [BC] Stat 04/09/18 19:38 Sodium Chloride 0.9% [Normal Saline] 1,000 ml IV .BOLUS 04/09/18 19:45 Insulin Regular, Human [NovoLIN R] 100 unit Sodium Chloride 0.9% [Normal Saline] 99 ml IV TITRATE 04/09/18 20:30 Sodium Chloride 0.9% [Normal Saline] 1,000 ml IV ASDIRECTED - Assessment/Plan Last 24 Hours: My Active Orders 04/09/18 18:58 Ondansetron [Zofran] 4 mg IVPUSH Q6H PRN 04/09/18 19:12 Blood Culture x2 Reflex Set [OM.PC] Stat 04/09/18 19:15 CULTURE BLOOD [BC] Stat 04/09/18 19:30 CULTURE BLOOD [BC] Stat 04/09/18 19:38 Sodium Chloride 0.9% [Normal Saline] 1,000 ml IV .BOLUS 04/09/18 19:45 Insulin Regular, Human [NovoLIN R] 100 unit Sodium Chloride 0.9% [Normal Saline] 99 ml IV TITRATE 04/09/18 20:30 Sodium Chloride 0.9% [Normal Saline] 1,000 ml IV ASDIRECTED Plan: the pt will be sent to [facility] for further evaluation and tx
[2018-04-09] MEDS ORDERED: Sodium Chloride 0.9% 1,000 ML IV ONE ×2 (18:22→19:38)
[2018-04-09] MEDS ORDERED: Ondansetron 4 MG/2 ML SDV IVPUSH PRN (18:58)
[2018-04-09] MEDS ORDERED: Pantoprazole 40 MG Vial IVPUSH ONE (19:02)
[2018-04-09 19:45] LABS: O2 DELIVERY DEVICE ROOM AIR
[2018-04-09 19:46] LABS: BICARBONATE,ARTERIAL 9.9 mm/L (22.0-26.0); O2 SATURATION ARTERIAL 98 % (95-98); PCO2 ARTERIAL 22 mm/Hg0 (35-45); PO2 ARTERIAL 112 mm/Hg (80-100)
[2018-04-09] MEDS ORDERED: Insulin Regular, Human 100 Units/ML 10 ML Vial IVPUSH ONE (19:47)
[2018-04-09] MEDS ORDERED: Sodium Chloride 0.9% 100 ML ONE (19:51)
[2018-04-09 20:27] VITALS: BP 136/63
[2018-04-09] MEDS ORDERED: Sodium Chloride 0.9% 1,000 ML IV SCH (20:30)
== END 2018-04-09 21:00 ==
LOC: CC.ED 17:54
DX: E10.10 Type 1 diabetes mellitus with ketoacidosis without coma (principal); D69.6 Thrombocytopenia, unspecified; E10.621 Type 1 diabetes mellitus with foot ulcer; L97.501 Non-pressure chronic ulcer of other part of unspecified foot limited to breakdown of skin; I10 Essential (primary) hypertension; F17.210 Nicotine dependence, cigarettes, uncomplicated; Z79.899 Other long term (current) drug therapy; Z88.5 Allergy status to narcotic agent
CPT/HCPCS: 36415; 36600; 80053; 81001; 82803; 83605; 85025; 86140; 87040; 96365; 96367; 96375; 99285; C9113; J2405; J7030; 96361; 96374; J1815-GY

== ENCOUNTER 2018-06-09 14:06 | Emergency (ER) | payer BC, MEDICAID ==
[2018-06-09 14:28] VITALS: BP 154/97
[2018-06-09 14:53] LABS: CHLORIDE,CL 99 mEq/L (98-106); SODIUM,NA 135 mEq/L (136-145)
--- NOTE | 2018-06-09 15:16 | EDM.PDOC ---
ED HPI GENERAL MEDICAL PROBLEM - General Chief Complaint: Skin Complaint Stated Complaint: RT FT STILL HAS INFECTION AND HURTS Time Seen by Provider: 06/09/18 14:56 Source of Information: Reports: Patient History Limitations: Reports: No Limitations - History of Present Illness INITIAL COMMENTS - FREE TEXT/NARRATIVE: Patient presents to ER with concerns of infection back in his right foot. He has been dealing with this foot for several months now. Was hospitalized both here and in [place] for this diabetic foot ulcer. States started out after stepping on a piece of glass, had to be opened up and has been on IV antibiotics x3 for this. He was placed in a case in [place] but states he was unable to tolerate that so had it removed and has been trying to not walk on it in order for it to heal. Has now noted increased redness and swelling in his foot again. No pain in the wound. States does have burning above the area in his leg. He is noncompliant diabetic. [facility] does note have medication coverage so "he has to ration out his insulin" until he can get to [place] to get his meds refilled due to coverage with Medicaid in [place]. Has not had any fevers. Has had minimal drainage from the wound. Duration: Week(s): Location: Reports: Lower Extremity, Right Quality: Reports: Dull, Throbbing Severity: Mild Improves with: Reports: None Associated Symptoms: Denies: Confusion, Chest Pain, Cough, Fever/Chills, Loss of Appetite, Nausea/Vomiting, Shortness of Breath, Weakness Right Feet Pain Score (Numeric/FACES): 5 - Related Data Allergies Allergy/AdvReac Type Severity Reaction Status Date / Time codeine Allergy Hives Verified 06/09/18 14:29 Home Meds: Home Meds Insulin Aspart [NovoLOG] 10 unit SQ QIDACANDBED 04/01/13 [History] Acetaminophen/oxyCODONE [Percocet 325-5 MG] 1 tab PO TID PRN 04/07/13 [History] Gabapentin [Neurontin] 300 mg PO TID 12/06/16 [History] Insulin Glargine,Hum.Rec.Anlog [Basaglar Kwikpen U-100] 40 unit SQ BEDTIME 03/25 [History] metFORMIN [Glucophage] 1,000 mg PO BID 03/25/18 [History] Ibuprofen 600 mg PO TID PRN 05/21/18 [History] Past Medical History Cardiovascular History: Reports: High Cholesterol, Hypertension Musculoskeletal History: Reports: Back Pain, Chronic Neurological History: Reports: Neuropathy, Diabetic Psychiatric History: Reports: Anxiety, Depression Endocrine/Metabolic History: Reports: Diabetes, Type I Dermatologic History: Reports: Other (See Below) Other Dermatologic History: diabetic ulcer to posterior right foot - Past Surgical History Cardiovascular Surgical History: Reports: None Endocrine Surgical History: Reports: None Neurological Surgical History: Reports: None Musculoskeletal Surgical History: Reports: None Dermatological Surgical History: Reports: None Social & Family History - Family History Family Medical History: Noncontributory Cardiac: Reports: Hypertension - Tobacco Use Smoking Status *Q: Current Every Day Smoker Years of Tobacco use: 20 Packs/Tins Daily: 0.5 - Caffeine Use Caffeine Use: Reports: Soda - Recreational Drug Use Recreational Drug Use: No ED ROS GENERAL - Review of Systems Review Of Systems: See Below Constitutional: Reports: Malaise, Weakness, Fatigue. Denies: Fever, Chills HEENT: Reports: No Symptoms Respiratory: Denies: Shortness of Breath, Cough Cardiovascular: Denies: Chest Pain, Edema, Syncope Endocrine: Reports: Fatigue GI/Abdominal: Denies: Abdominal Pain, Nausea, Vomiting : Reports: No Symptoms Musculoskeletal: Reports: Leg Pain, Foot Pain Skin: Reports: Wound Neurological: Reports: No Symptoms ED EXAM, SKIN/RASH Exam: See Below Exam Limited By: No Limitations General Appearance: Alert, WD/WN, No Apparent Distress Ears: Normal External Exam, Normal TMs Nose: Normal Inspection, Normal Mucosa, No Blood Throat/Mouth: Normal Inspection, Normal Oropharynx, Other (missing teeth) Head: Normocephalic Neck: Normal Inspection, Supple, Non-Tender Respiratory/Chest: No Respiratory Distress, Lungs Clear, Normal Breath Sounds Cardiovascular: Regular Rate, Rhythm GI/Abdominal: Normal Bowel Sounds, Soft, Non-Tender Extremities: Other (Patient does still have an open wound to sole of his foot. No visible drainage at this time. Surrounding tissue is red, mild swelling. Warm to the touch.) Course - Vital Signs Last Recorded V/S: Last Vital Signs Temp 95.7 F 06/09/18 14:26 Pulse 118 H 06/09/18 14:26 Resp 20 06/09/18 14:26 BP 154/97 H 06/09/18 14:26 Pulse Ox 98 06/09/18 14:26 - Orders/Labs/Meds Labs: Laboratory Tests 06/09/18 06/09/18 Range/Units 14:35 14:35 WBC 8.9 (5.0-10.0) 10^3/uL RBC 4.02 L (4.50-6.00) 10^6/uL Hgb 12.0 L (14.0-18.0) g/dL Hct 36.2 L (40.0-54.0) % MCV 90.0 (82.0-94.0) fL MCH 29.9 (27.0-32.0) pg MCHC 33.1 (33.0-38.0) g/dL RDW Coeff of Ludmila 15.2 H (11.0-15.0) % Plt Count 403 H (150-400) 10^3/uL Neut % (Auto) 65.5 (35-85) % Lymph % (Auto) 24.3 (10-55) % [place] % (Auto) 7.6 (0-16) % Eos % (Auto) 1.7 (0-5) % Baso % (Auto) 0.9 (0-3) % Neut # (Auto) 5.83 (1.80-7.00) 10^3/uL Lymph # (Auto) 2.16 (1.00-4.80) 10^3/uL [place] # (Auto) 0.68 (0.00-0.80) 10^3/uL Eos # (Auto) 0.15 (0.00-0.45) 10^3/uL Baso # (Auto) 0.08 10^3/uL Sodium 135 L (136-145) mEq/L Potassium 4.5 (3.5-5.0) mEq/L Chloride 99 (98-106) mEq/L Carbon Dioxide 30 (21-32) mmol/L BUN 11 (7-18) mg/dL Creatinine 0.9 (0.7-1.3) mg/dL Est Cr Clr Drug Dosing 102.90 mL/min Estimated GFR (MDRD) > 60 (>=60) mL/min Glucose 442 H* D (75-99) mg/dL Calcium 8.4 (8.4-10.1) mg/dL Total Bilirubin 0.1 (0.0-1.0) mg/dL AST 33 (15-37) U/L ALT 40 (12-78) U/L Alkaline Phosphatase 110 (46-116) U/L C-Reactive Protein < 0.2 L (0.2-0.8) mg/dL Total Protein 6.2 L (6.4-8.2) g/dL Albumin 2.4 L (3.4-5.0) g/dL - Re-Assessments/Exams Free Text/Narrative Re-Assessment/Exam: 06/09/18 Wet to dry dressing applied to right foot. Placed in cam boot. Set up to see PT tomorrow. Will start oral Cleocin. Advised to be more compliant with his diabetic control/insulin. Departure - Departure Time of Disposition: 15:15 Disposition: Home, Self-Care 01 Condition: Fair Clinical Impression: Diabetic foot ulcers, Cellulitis in diabetic foot - Discharge Information *PRESCRIPTION DRUG MONITORING PROGRAM REVIEWED*: No *COPY OF PRESCRIPTION DRUG MONITORING REPORT IN PATIENT NEELAM: No Referrals: Talon Adrian PA-C [Family Provider] - Forms: ED Department Discharge Additional Instructions: 1. Limited weight bearing on right foot 2. Keep cam boot on when up 3. Cleocin 300 mg four times a day for 10 days 4. See physical therapy at 9 am tomorrow 5. Better control of blood sugars 6. Follow up with PCP as needed
== END 2018-06-09 15:23 | disposition home or self-care (01) ==
LOC: CC.ED 14:06
DX: E10.621 Type 1 diabetes mellitus with foot ulcer (principal); L97.529 Non-pressure chronic ulcer of other part of left foot with unspecified severity; L97.519 Non-pressure chronic ulcer of other part of right foot with unspecified severity; L03.115 Cellulitis of right lower limb; F17.210 Nicotine dependence, cigarettes, uncomplicated; Z79.899 Other long term (current) drug therapy; Z88.5 Allergy status to narcotic agent
CPT/HCPCS: 36415; 80053; 85025; 86140; 99282

== ENCOUNTER 2018-06-10 20:01 | Emergency (ER) | payer BC, MEDICAID ==
[2018-06-10] MEDS ORDERED: Acetaminophen/oxyCODONE 325-5 MG Tab PO ONE (20:02)
[2018-06-10 20:18] VITALS: BP 160/104
[2018-06-10 20:44] LABS: CHLORIDE,CL 98 mEq/L (98-106); SODIUM,NA 133 mEq/L (136-145)
[2018-06-10] MEDS ORDERED: Take Home: Acetaminophen/oxyCODONE 325-5 MG, 2 Tab Pack PO ONE (21:16)
--- NOTE | 2018-06-10 21:24 | EDM.PDOC ---
ED HPI GENERAL MEDICAL PROBLEM - General Chief Complaint: Lower Extremity Injury/Pain Stated Complaint: right foot hurts Time Seen by Provider: 06/10/18 20:37 - History of Present Illness INITIAL COMMENTS - FREE TEXT/NARRATIVE: Arvin is a 43 year old male with c/o right foot pain. He reports he has been struggling with this foot ulcer for several months now. Was seen in ED yesterday by my colleague and started on antibiotics. He reports he has been taking the antibiotics as prescribed. He reports he saw PT this morning and they debrided his foot ulcer and now his pain has worsened. He presented with no dressing on foot. Was wearing his Cam boot, but had no sock on his foot. He reports to me that he was previously prescribed 10-325 mg Percocet and his last fill was only 5-325 mg so he has been taking too much and ran out. Reports his pain is unbearable this evening. He reports he has been taking Tramadol and Percocet for the pain without relief. He reports over the past few days his rednness and drainage from ulcer has worsened. Has not had any fever. Scant drainage noted from wound. Does report he does not have [place] Medicaid, so cannot fill his medications here and he is low on insulin so has to ration his insulin until he can get to [place] to get his meds refilled. He reports his sugars are in the 100' s in the mornnig and increase throughout the day as he "likes to eat." RIGHT FOOT Pain Score (Numeric/FACES): 7 - Related Data Allergies Allergy/AdvReac Type Severity Reaction Status Date / Time codeine Allergy Hives Verified 06/10/18 20:18 Home Meds: Home Meds Insulin Aspart [NovoLOG] 10 unit SQ QIDACANDBED 04/01/13 [History] Acetaminophen/oxyCODONE [Percocet 325-5 MG] 1 tab PO TID PRN 04/07/13 [History] Gabapentin [Neurontin] 300 mg PO DAILY 12/06/16 [History] Insulin Glargine,Hum.Rec.Anlog [Basaglar Kwikpen U-100] 40 unit SQ BEDTIME 03/25 [History] metFORMIN [Glucophage] 1,000 mg PO BID 03/25/18 [History] Ibuprofen 600 mg PO TID PRN 05/21/18 [History] Clindamycin HCl 300 mg PO QID 06/10/18 [History] Lisinopril 20 mg PO DAILY 06/10/18 [History] oxyCODONE HCl/Acetaminophen [Oxycodone-Acetaminophen 5-325] 1 - 2 tab PO Q8H PRN #12 tablet 06/10/18 [Rx] Past Medical History Cardiovascular History: Reports: High Cholesterol, Hypertension Musculoskeletal History: Reports: Back Pain, Chronic Neurological History: Reports: Neuropathy, Diabetic Psychiatric History: Reports: Anxiety, Depression Endocrine/Metabolic History: Reports: Diabetes, Type I Dermatologic History: Reports: Other (See Below) Other Dermatologic History: diabetic ulcer to posterior right foot - Past Surgical History Cardiovascular Surgical History: Reports: None Endocrine Surgical History: Reports: None Neurological Surgical History: Reports: None Musculoskeletal Surgical History: Reports: None Dermatological Surgical History: Reports: None Social & Family History - Family History Family Medical History: Noncontributory Cardiac: Reports: Hypertension - Tobacco Use Smoking Status *Q: Current Every Day Smoker Years of Tobacco use: 20 Packs/Tins Daily: 0.5 - Caffeine Use Caffeine Use: Reports: Coffee, Soda - Recreational Drug Use Recreational Drug Use: No Review of Systems - Review of Systems Review Of Systems: ROS reveals no pertinent complaints other than HPI. Constitutional: Denies: Chills, Fever Eyes: Reports: No Symptoms Ears: Reports: No Symptoms. Denies: Dizziness Nose: Reports: No Symptoms Mouth/Throat: Reports: No Symptoms Respiratory: Reports: No Symptoms. Denies: Shortness of Breath, Cough Cardiovascular: Reports: No Symptoms. Denies: Chest Pain, Edema GI/Abdominal: Reports: No Symptoms. Denies: Abdominal Pain, Decreased Appetite , Diarrhea, Nausea, Vomiting Genitourinary: Reports: No Symptoms Musculoskeletal: Reports: Foot Pain (right wound) Skin: Reports: Wound Neurological: Reports: No Symptoms. Denies: Confusion, Dizziness, Headache Psychiatric: Reports: No Symptoms ED EXAM, GENERAL - Physical Exam Exam: See Below Exam Limited By: No Limitations General Appearance: Alert, WD/WN, No Apparent Distress Head: Atraumatic, Normocephalic Neck: Normal Inspection, Supple, Non-Tender, Full Range of Motion Respiratory/Chest: No Respiratory Distress, Lungs Clear, Normal Breath Sounds, No Accessory Muscle Use, Chest Non-Tender Cardiovascular: Normal Peripheral Pulses, Regular Rate, Rhythm, No Edema, No Gallop, No JVD, No Murmur, No Rub Peripheral Pulses: 2+: Dorsalis Pedis (L), Dorsalis Pedis (R) Extremities: Other (2 cm x 1.5 cm x 0.5 cm wound to sole of right foot, no visible drainage, surrounding tissue mild erythema, swelling, & calor) Course - Vital Signs Last Recorded V/S: Last Vital Signs Temp 96.4 F 06/10/18 20:14 Pulse 109 H 06/10/18 20:14 Resp 20 06/10/18 20:14 BP 160/104 H 06/10/18 20:14 Pulse Ox 100 06/10/18 20:14 - Orders/Labs/Meds Orders: Active Orders 24 hr Category Date Time Status DRUG SCREEN URINE BIORAD [URCHEM] Stat Lab 06/10/18 20:48 Ordered UA RFX MARY AND CULT IF INDIC [URIN] Stat Lab 06/10/18 20:48 Ordered Lisinopril [Prinivil] Med 06/11/18 08:00 Ordered 20 mg PO DAILY Medication Orders Lisinopril (Prinivil) 20 mg PO DAILY SAMMI Stop: 06/13/18 08:01 Labs: Laboratory Tests 06/10/18 06/10/18 06/10/18 Range/Units 20:13 20:13 20:48 WBC 8.1 (5.0-10.0) 10^3/uL RBC 4.09 L (4.50-6.00) 10^6/uL Hgb 12.2 L (14.0-18.0) g/dL Hct 37.1 L (40.0-54.0) % MCV 90.7 (82.0-94.0) fL MCH 29.8 (27.0-32.0) pg MCHC 32.9 L (33.0-38.0) g/dL RDW Coeff of Ludmila 15.3 H (11.0-15.0) % Plt Count 445 H (150-400) 10^3/uL Neut % (Auto) 60.2 (35-85) % Lymph % (Auto) 28.8 (10-55) % [place] % (Auto) 8.6 (0-16) % Eos % (Auto) 1.7 (0-5) % Baso % (Auto) 0.7 (0-3) % Neut # (Auto) 4.85 (1.80-7.00) 10^3/uL Lymph # (Auto) 2.32 (1.00-4.80) 10^3/uL [place] # (Auto) 0.69 (0.00-0.80) 10^3/uL Eos # (Auto) 0.14 (0.00-0.45) 10^3/uL Baso # (Auto) 0.06 10^3/uL Sodium 133 L (136-145) mEq/L Potassium 4.2 (3.5-5.0) mEq/L Chloride 98 (98-106) mEq/L Carbon Dioxide 27 (21-32) mmol/L BUN 15 (7-18) mg/dL Creatinine 1.1 (0.7-1.3) mg/dL Est Cr Clr Drug Dosing 84.19 mL/min Estimated GFR (MDRD) > 60 (>=60) mL/min Glucose 491 H* (75-99) mg/dL Calcium 8.6 (8.4-10.1) mg/dL C-Reactive Protein < 0.2 L (0.2-0.8) mg/dL Urine Color (YELLOW) Urine Appearance (CLEAR) Urine pH (4.5-8.0) Ur Specific [place] (1.003-1.020) Urine Protein (NEGATIVE) mg/dL Urine Glucose (UA) (NEGATIVE) mg/dL Urine Ketones (NEGATIVE) mg/dL Urine Occult Blood (NEGATIVE) Urine Nitrite (NEGATIVE) Urine Bilirubin (NEGATIVE) Urine Urobilinogen (0.2-1.0) EU/dL Ur Leukocyte Esterase (NEGATIVE) Urine Opiates Screen Negative (NEGATIVE) Ur Oxycodone Screen Negative (NEGATIVE) Urine Methadone Screen Negative (NEGATIVE) Ur Barbiturates Screen Negative (NEGATIVE) U Tricyclic Antidepress Negative (NEGATIVE) Ur Phencyclidine Scrn Negative (NEGATIVE) Ur Amphetamine Screen Negative (NEGATIVE) U Methamphetamines Scrn Negative (NEGATIVE) Urine MDMA Screen Negative (NEGATIVE) U Benzodiazepines Scrn Positive H (NEGATIVE) Urine Cocaine Screen Negative (NEGATIVE) U Marijuana (THC) Screen Negative (NEGATIVE) 06/10/18 Range/Units 20:48 WBC (5.0-10.0) 10^3/uL RBC (4.50-6.00) 10^6/uL Hgb (14.0-18.0) g/dL Hct (40.0-54.0) % MCV (82.0-94.0) fL MCH (27.0-32.0) pg MCHC (33.0-38.0) g/dL RDW Coeff of Ludmila (11.0-15.0) % Plt Count (150-400) 10^3/uL Neut % (Auto) (35-85) % Lymph % (Auto) (10-55) % [place] % (Auto) (0-16) % Eos % (Auto) (0-5) % Baso % (Auto) (0-3) % Neut # (Auto) (1.80-7.00) 10^3/uL Lymph # (Auto) (1.00-4.80) 10^3/uL [place] # (Auto) (0.00-0.80) 10^3/uL Eos # (Auto) (0.00-0.45) 10^3/uL Baso # (Auto) 10^3/uL Sodium (136-145) mEq/L Potassium (3.5-5.0) mEq/L Chloride (98-106) mEq/L Carbon Dioxide (21-32) mmol/L BUN (7-18) mg/dL Creatinine (0.7-1.3) mg/dL Est Cr Clr Drug Dosing mL/min Estimated GFR (MDRD) (>=60) mL/min Glucose (75-99) mg/dL Calcium (8.4-10.1) mg/dL C-Reactive Protein (0.2-0.8) mg/dL Urine Color Straw (YELLOW) Urine Appearance Clear (CLEAR) Urine pH 6.5 (4.5-8.0) Ur Specific [place] 1.015 (1.003-1.020) Urine Protein 100 H (NEGATIVE) mg/dL Urine Glucose (UA) 500 H (NEGATIVE) mg/dL Urine Ketones Negative (NEGATIVE) mg/dL Urine Occult Blood Small H (NEGATIVE) Urine Nitrite Negative (NEGATIVE) Urine Bilirubin Negative (NEGATIVE) Urine Urobilinogen 0.2 (0.2-1.0) EU/dL Ur Leukocyte Esterase Negative (NEGATIVE) Urine Opiates Screen (NEGATIVE) Ur Oxycodone Screen (NEGATIVE) Urine Methadone Screen (NEGATIVE) Ur Barbiturates Screen (NEGATIVE) U Tricyclic Antidepress (NEGATIVE) Ur Phencyclidine Scrn (NEGATIVE) Ur Amphetamine Screen (NEGATIVE) U Methamphetamines Scrn (NEGATIVE) Urine MDMA Screen (NEGATIVE) U Benzodiazepines Scrn (NEGATIVE) Urine Cocaine Screen (NEGATIVE) U Marijuana (THC) Screen (NEGATIVE) Meds: Medications Generic Name Dose Route Start Last Admin Trade Name Freq PRN Reason Stop Dose Admin Lisinopril 20 mg 06/11/18 08:00 Prinivil PO 06/13/18 08:01 DAILY SAMMI Discontinued Medications Generic Name Dose Route Start Last Admin Trade Name Freq PRN Reason Stop Dose Admin Oxycodone/Acetaminophen 2 packet 06/10/18 21:16 06/10/18 21:26 Take Home: Acetaminophen/Oxycodon, 2 Tab Pack PO 06/10/18 21:17 Not Given ONETIME ONE - Re-Assessments/Exams Free Text/Narrative Re-Assessment/Exam: Discussed lab results with patient. Reported his blood sugar is significantly elevated. WBC and CRP are normal. Discussed concerning findings of urine toxicology screen. Discussed that there is no sign that he has been taking oxycodone. He reports he ran out a few days ago. Has conflicting stories regarding what he has been taking for pain medications. Starts talking about his bad teeth and his teeth pain as well as his back pain that "requires surgery." Reports he also has some Vicodin that he has been alternating with. When asked about benzodiazepines, he reports he has an old script he "keeps on hand in case he has panic attack." Stories regarding use do not align to initial presentation and description of his pain and what he has been currently doing to manage his pain. Discussed with patient that labs do not indicate severe infection. Recommended he take his oral antibiotics previously prescribed. Discussed with patient that the ED is not a place to get prescription drugs refilled. Prescription drug monitoring program shows he last refilled 150 Percocet 5-325 mg 05/24/2018 from his PCP. Voiced to patient that we will not provide further pain medications from ED given concerning findings regarding his use of medications. Did agree to give patient enough to get through the weekend until he can contact his PCP given recent debridement of foot ulcer. Discussed importance of managing blood sugars for optimal wound healing. Recommend he follow up with PCP this week. Departure - Departure Time of Disposition: 21:17 Disposition: Home, Self-Care 01 Condition: Fair Clinical Impression: Cellulitis in diabetic foot, Drug-seeking behavior Diabetic foot ulcer associated with type 1 diabetes mellitus Qualifiers: Diabetic foot ulcer location: other Laterality: right Non-pressure ulcer stage : with necrosis of muscle Qualified Code(s): E10.621 - Type 1 diabetes mellitus with foot ulcer Type 1 diabetes Qualifiers: Diabetes mellitus complication status: with hyperglycemia Qualified Code(s): E10.65 - Type 1 diabetes mellitus with hyperglycemia - Discharge Information *PRESCRIPTION DRUG MONITORING PROGRAM REVIEWED*: Yes *COPY OF PRESCRIPTION DRUG MONITORING REPORT IN PATIENT NEELAM: No Prescriptions: oxyCODONE HCl/Acetaminophen [Oxycodone-Acetaminophen 5-325] 1 - 2 tab PO Q8H PRN #12 tablet PRN Reason: Pain Instructions: Diabetes Mellitus and Foot Care Referrals: Talon Adrian PA-C [Primary Care Provider] - Forms: ED Department Discharge Additional Instructions: 1) Discussed that ED WILL NOT prescribe any further pain medications. Prescribed enough to get through the weekend. [facility] be picked up at [facility] in am. Need to call PCP for further refills. 2) Continue Clindamycin as prescribed yesterday 3) Cam boot on at all times when walking. Limited weight bearing on right foot. 4) Dressing change daily 5) Follow up with PT as scheduled 6) Need to better manage blood sugars 7) Lisinopril 20 mg daily 8) Follow up with PCP next week for medication refills - My Orders Last 24 Hours: My Active Orders 06/10/18 20:48 DRUG SCREEN URINE BIORAD [URCHEM] Stat UA RFX MARY AND CULT IF INDIC [URIN] Stat 06/11/18 08:00 Lisinopril [Prinivil] 20 mg PO DAILY - Assessment/Plan Last 24 Hours: My Active Orders 06/10/18 20:48 DRUG SCREEN URINE BIORAD [URCHEM] Stat UA RFX MARY AND CULT IF INDIC [URIN] Stat 06/11/18 08:00 Lisinopril [Prinivil] 20 mg PO DAILY
[2018-06-10] MEDS ORDERED: Lisinopril 20 MG Tab ONE (21:43)
[2018-06-11] MEDS ORDERED: Lisinopril 20 MG Tab PO SCH (08:00)
== END 2018-06-10 21:49 | disposition home or self-care (01) ==
LOC: CC.ED 20:01
DX: L03.115 Cellulitis of right lower limb (principal); E10.621 Type 1 diabetes mellitus with foot ulcer; E10.40 Type 1 diabetes mellitus with diabetic neuropathy, unspecified; F17.210 Nicotine dependence, cigarettes, uncomplicated; Z79.899 Other long term (current) drug therapy; Z88.5 Allergy status to narcotic agent
CPT/HCPCS: 36415; 80048; 80305-QW; 81001; 81003; 85025; 86140; 99283; A9270-GY

== ENCOUNTER 2018-08-06 08:03 | Emergency (ER) | payer BC, MEDICAID ==
[2018-08-06] MEDS ORDERED: Clindamycin Phosphate in D5W 300 MG in Premix Bag 1 BAG IV ONE ×2 (09:23)
[2018-08-06] MEDS ORDERED: Acetaminophen 325 MG Tab PO ONE (10:11)
[2018-08-06] MEDS ORDERED: Insulin Regular, Human 100 Units/ML 10 ML Vial SUBCUT ONE (10:15)
[2018-08-06] MEDS ORDERED: Insulin Lispro 100 Units/ML 3 ML Vial SUBCUT STA (10:24)
[2018-08-06] MEDS ORDERED: Insulin Lispro 100 Units/ML 3 ML Vial ONE (10:46)
--- NOTE | 2018-08-06 10:53 | EDM.PDOC ---
ED HPI GENERAL MEDICAL PROBLEM - General Chief Complaint: Wound Recheck Stated Complaint: ULCER Time Seen by Provider: 08/06/18 08:40 Source of Information: Reports: Patient History Limitations: Reports: No Limitations - History of Present Illness INITIAL COMMENTS - FREE TEXT/NARRATIVE: Patient presents to ER with several concerns. Is having more pain and redness to his right foot again. Has had a diabetic foot ulcer since March. Has had multiple treatments for this since then including hospitalizations, PT and a cast placement. States his foot starting getting red a week ago or so, now bleeding and is more painful. He has not been taking his novolog over the last 4 days as he is out of insulin and has to fill it in [place] due to his [place] Medicaid. He also admits he has not taken his Lisinopril for 2 months. States "blood sugars were running okay at home until the insulin was gone". He also noted a "lump" on his left arm a week ago, now it is hot and red and painful. Has been getting bigger. Unaware of any fevers but admits to chills at times. No nausea or vomiting. Feels more tired. Onset: Gradual Duration: Week(s):, Getting Worse Location: Reports: Lower Extremity, Right Quality: Reports: Ache, Sharp Severity: Moderate Improves with: Reports: None Associated Symptoms: Reports: Fever/Chills, Malaise. Denies: Chest Pain, Cough , Loss of Appetite, Nausea/Vomiting, Shortness of Breath Left Elbow Pain Score (Numeric/FACES): 6 - Related Data Allergies Allergy/AdvReac Type Severity Reaction Status Date / Time codeine Allergy Hives Verified 08/06/18 08:10 Home Meds: Home Meds Insulin Aspart [NovoLOG] 10 unit SQ QIDACANDBED 04/01/13 [History] Gabapentin [Neurontin] 300 mg PO DAILY 12/06/16 [History] Insulin Glargine,Hum.Rec.Anlog [Basaglar Kwikpen U-100] 40 unit SQ BEDTIME 03/25 [History] metFORMIN [Glucophage] 1,000 mg PO BID 03/25/18 [History] Ibuprofen 600 mg PO TID PRN 05/21/18 [History] Clindamycin HCl 300 mg PO QID 06/10/18 [History] Lisinopril 20 mg PO DAILY 06/10/18 [History] oxyCODONE HCl/Acetaminophen [Oxycodone-Acetaminophen 5-325] 1 - 2 tab PO Q8H PRN #12 tablet 06/10/18 [Rx] Past Medical History Cardiovascular History: Reports: High Cholesterol, Hypertension Musculoskeletal History: Reports: Back Pain, Chronic Neurological History: Reports: Neuropathy, Diabetic Psychiatric History: Reports: Anxiety, Depression Endocrine/Metabolic History: Reports: Diabetes, Type I Dermatologic History: Reports: Other (See Below) Other Dermatologic History: diabetic ulcer to posterior right foot - Past Surgical History Cardiovascular Surgical History: Reports: None Endocrine Surgical History: Reports: None Neurological Surgical History: Reports: None Musculoskeletal Surgical History: Reports: None Dermatological Surgical History: Reports: None Social & Family History - Family History Family Medical History: Noncontributory Cardiac: Reports: Hypertension - Tobacco Use Smoking Status *Q: Current Every Day Smoker Years of Tobacco use: 20 Packs/Tins Daily: 0.5 - Caffeine Use Caffeine Use: Reports: Energy Drinks, Soda - Recreational Drug Use Recreational Drug Use: No ED ROS GENERAL - Review of Systems Review Of Systems: See Below Constitutional: Reports: Chills, Malaise, Fatigue. Denies: Fever, Decreased Appetite HEENT: Reports: No Symptoms Respiratory: Denies: Shortness of Breath, Cough Cardiovascular: Denies: Chest Pain, Edema, Lightheadedness Endocrine: Reports: Fatigue GI/Abdominal: Denies: Abdominal Pain, Nausea, Vomiting : Reports: No Symptoms Musculoskeletal: Reports: Arm Pain, Leg Pain, Foot Pain Skin: Reports: Wound Neurological: Reports: No Symptoms ED EXAM, SKIN/RASH Exam: See Below Exam Limited By: No Limitations General Appearance: Alert, WD/WN, No Apparent Distress Ears: Normal External Exam, Normal TMs Nose: Normal Inspection, Normal Mucosa, No Blood Throat/Mouth: Normal Inspection, Normal Oropharynx Head: Normocephalic Neck: Normal Inspection, Supple, Non-Tender Respiratory/Chest: No Respiratory Distress, Lungs Clear, Normal Breath Sounds Cardiovascular: Regular Rate, Rhythm, No Edema GI/Abdominal: Normal Bowel Sounds, Soft, Non-Tender Extremities: Increased Warmth, Redness, Other (Right foot is red, warm to the touch. Has large deep open ulcer to plantar surface of distal right foot. Is oozing serosanguinous drainage at present. ) Neurological: Alert, Oriented Skin: Other (Patient has 2 cm raised nodule to left forearm with surrounding erythema and swelling. Is tender. Small 0.5 cm lesion to his left leg.) Course - Vital Signs Last Recorded V/S: Last Vital Signs Temp 97.9 F 08/06/18 10:57 Pulse 99 08/06/18 10:57 Resp 16 08/06/18 10:57 BP 131/97 H 08/06/18 10:57 Pulse Ox 97 08/06/18 10:57 - Orders/Labs/Meds Orders: Active Orders 24 hr Category Date Time Status CULTURE BLOOD [BC] Stat Lab 08/06/18 09:47 Received Labs: Laboratory Tests 08/06/18 08/06/18 Range/Units 08:35 08:35 WBC 10.8 H (5.0-10.0) 10^3/uL RBC 4.16 L (4.50-6.00) 10^6/uL Hgb 12.5 L (14.0-18.0) g/dL Hct 36.8 L (40.0-54.0) % MCV 88.5 (82.0-94.0) fL MCH 30.0 (27.0-32.0) pg MCHC 34.0 (33.0-38.0) g/dL RDW Coeff of Ludmila 13.7 (11.0-15.0) % Plt Count 429 H (150-400) 10^3/uL Neut % (Auto) 78.3 (35-85) % Lymph % (Auto) 11.7 (10-55) % [place] % (Auto) 9.3 (0-16) % Eos % (Auto) 0.5 (0-5) % Baso % (Auto) 0.2 (0-3) % Neut # (Auto) 8.46 H (1.80-7.00) 10^3/uL Lymph # (Auto) 1.26 (1.00-4.80) 10^3/uL Riley # (Auto) 1.00 H (0.00-0.80) 10^3/uL Eos # (Auto) 0.05 (0.00-0.45) 10^3/uL Baso # (Auto) 0.02 10^3/uL Sodium 128 L (136-145) mEq/L Potassium 4.7 (3.5-5.0) mEq/L Chloride 91 L (98-106) mEq/L Carbon Dioxide 27 (21-32) mmol/L BUN 25 H D (7-18) mg/dL Creatinine 1.6 H (0.7-1.3) mg/dL Est Cr Clr Drug Dosing 57.88 mL/min Estimated GFR (MDRD) 48 L (>=60) mL/min Glucose 670 H* D (75-99) mg/dL Calcium 8.4 (8.4-10.1) mg/dL C-Reactive Protein 1.0 H (0.2-0.8) mg/dL Meds: Medications Discontinued Medications Generic Name Dose Route Start Last Admin Trade Name Freq PRN Reason Stop Dose Admin Acetaminophen 650 mg 08/06/18 10:11 08/06/18 10:23 Tylenol PO 08/06/18 10:12 650 mg NOW ONE Administration Clindamycin Phosphate 300 mg/ 50 mls @ 100 mls/hr 08/06/18 09:23 08/06/18 10: 03 Premix IV 08/06/18 09:52 100 mls/hr ONETIME ONE Administration Insulin Human Lispro 20 unit 08/06/18 10:24 08/06/18 10:50 Humalog SUBCUT 08/06/18 10:25 20 units NOW STA Administration Insulin Human Lispro Confirm 08/06/18 10:46 08/06/18 10:52 Humalog Administered 08/06/18 10:47 Not Given Dose 300 unit .ROUTE .STK-MED ONE Insulin Human Regular 20 unit 08/06/18 10:15 08/06/18 10:25 Novolin R SUBCUT 08/06/18 10:16 Not Given ONETIME ONE Protocol - Re-Assessments/Exams Free Text/Narrative Re-Assessment/Exam: 08/06/18 0910 Labs reviewed. WBC 10.8. CRP 1.0. Sodium low at 128. Blood sugar 670 Contact [facility] per patient request. Would like to be hospitalized there so he can get closer to home as he states he understands he needs to live there with his mother so he can get his health in better control due to regulations by Medicaid and only getting his meds refilled in [place]. Contacted Dr. Ying, hospitalist at [facility] with patient status. Did agree to accept the patient in transfer. Patient aware of the risks and benefits of transfer. Benefits of transfer include more specialized care closer to home, infectious disease/endocrinology for his diabetes and ulcer. Risks of transfer include worsening status, vehicle crash and even . Benefits of non transfer include care close to his her in [place]. Risks of non transfer include nonspecialty care for his ulcer/cellulitis and inability here to obtain his medications on discharge. Patient agrees to transfer. Departure - Departure Time of Disposition: 10:52 Disposition: DC/Tfer to [facility] 02 Condition: Fair Clinical Impression: Diabetic foot ulcers, Cellulitis, Type 1 diabetes - Discharge Information *PRESCRIPTION DRUG MONITORING PROGRAM REVIEWED*: No *COPY OF PRESCRIPTION DRUG MONITORING REPORT IN PATIENT NEELAM: No Referrals: PCP,None [Primary Care Provider] - Forms: ED Department Discharge Additional Instructions: Transfer to [facility] to Dr. Schaefer per VIANEY. - My Orders Last 24 Hours: My Active Orders 08/06/18 09:47 CULTURE BLOOD [BC] Stat - Assessment/Plan Last 24 Hours: My Active Orders 08/06/18 09:47 CULTURE BLOOD [BC] Stat
[2018-08-06 10:57] VITALS: BP 131/97
== END 2018-08-06 12:00 ==
LOC: CC.ED 08:03
DX: E10.621 Type 1 diabetes mellitus with foot ulcer (principal); L97.519 Non-pressure chronic ulcer of other part of right foot with unspecified severity; L03.114 Cellulitis of left upper limb; L03.116 Cellulitis of left lower limb; E78.00 Pure hypercholesterolemia, unspecified; I10 Essential (primary) hypertension; E10.40 Type 1 diabetes mellitus with diabetic neuropathy, unspecified; F41.9 Anxiety disorder, unspecified; F32.9 Major depressive disorder, single episode, unspecified; F17.210 Nicotine dependence, cigarettes, uncomplicated; Z88.5 Allergy status to narcotic agent; Z79.4 Long term (current) use of insulin; Z79.899 Other long term (current) drug therapy
CPT/HCPCS: 36415; 80048; 85025; 86140; 87040; 96365; 96372; 99284-25; A9270-GY; J1815; J3490

== ENCOUNTER 2018-11-08 01:28 | Emergency (ER) | payer BC ==
[2018-11-08 01:37] VITALS: BP 171/94; PULSE 105
[2018-11-08] MEDS ORDERED: Insulin Lispro 100 Units/ML 3 ML Vial SUBCUT ONE ×4 (01:42→02:45)
[2018-11-08 02:16] LABS: CHLORIDE,CL 93 mEq/L (98-106); SODIUM,NA 128 mEq/L (136-145)
--- NOTE | 2018-11-08 02:17 | EDM.PDOC ---
ED HPI GENERAL MEDICAL PROBLEM - General Chief Complaint: Diabetic Complaint Stated Complaint: high blood sugar Time Seen by Provider: 11/08/18 02:05 Source of Information: Reports: Patient History Limitations: Reports: No Limitations - History of Present Illness INITIAL COMMENTS - FREE TEXT/NARRATIVE: Arvin is a 43 year old male who presents to the ED with c/o high blood sugars. He reports he was in the clinic earlier today and had blood sugar in the 700s. Reports he was advised to f/u if unable to get blood sugar to come down. He reports he took total of 60 units short and long acting insulin throughout the evening and his glucometer continues to read "high." He reports he is not really symptomatic. Only complaint is that his left ear hurts. Denies any polyuria, polydipsia, weakness, dizziness, weight loss, N/V/D. Reports he had pasta for supper and then fell asleep. Woke up and checked his blood sugar and it was still elevated, prompting ED visit. 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 - Related Data Allergies Allergy/AdvReac Type Severity Reaction Status Date / Time codeine Allergy Hives Verified 11/08/18 01:31 Home Meds: Home Meds Insulin Aspart [NovoLOG] See Protocol SQ QIDACANDBED 04/01/13 [History] Gabapentin [Neurontin] 300 mg PO BID 12/06/16 [History] metFORMIN [Glucophage] 1,000 mg PO BID 03/25/18 [History] Ibuprofen 600 mg PO TID PRN 05/21/18 [History] Lisinopril 20 mg PO DAILY 06/10/18 [History] oxyCODONE HCl/Acetaminophen [Oxycodone-Acetaminophen 5-325] 1 - 2 tab PO Q8H PRN #12 tablet 06/10/18 [Rx] Insulin Glarg,Human.Rec.Analog [Lantus] 30 units SQ BID 11/08/18 [History] Past Medical History Cardiovascular History: Reports: High Cholesterol, Hypertension Musculoskeletal History: Reports: Arthritis, Back Pain, Chronic Neurological History: Reports: Neuropathy, Diabetic Psychiatric History: Reports: Anxiety, Depression Endocrine/Metabolic History: Reports: Diabetes, Type I Dermatologic History: Reports: Other (See Below) Other Dermatologic History: diabetic ulcer to posterior right foot - Past Surgical History Cardiovascular Surgical History: Reports: None Endocrine Surgical History: Reports: None Neurological Surgical History: Reports: None Musculoskeletal Surgical History: Reports: None Dermatological Surgical History: Reports: None Social & Family History - Family History Family Medical History: Noncontributory Cardiac: Reports: Hypertension - Tobacco Use Smoking Status *Q: Current Every Day Smoker Years of Tobacco use: 20 Packs/Tins Daily: 0.5 - Caffeine Use Caffeine Use: Reports: Soda - Recreational Drug Use Recreational Drug Use: Yes Recreational Drug Type: Reports: Marijuana/Hashish Recreational Drug Use Frequency: Weekly ED ROS GENERAL - Review of Systems Review Of Systems: See Below Constitutional: Reports: No Symptoms. Denies: Fever, Chills, Malaise, Weakness , Fatigue, Night Sweats, Diaphoresis, Decreased Appetite, Weight Loss, Weight Gain HEENT: Reports: Ear Pain (left). Denies: Ear Discharge, Throat Pain, Vertigo, Vision Change Respiratory: Reports: No Symptoms. Denies: Shortness of Breath, Wheezing, Pleuritic Chest Pain, Cough, Sputum Cardiovascular: Reports: No Symptoms. Denies: Chest Pain, Dyspnea on Exertion, Edema, Lightheadedness, Syncope Endocrine: Reports: High Glucose. Denies: Polydypsia, Polyuria GI/Abdominal: Denies: Abdominal Pain, Constipation, Diarrhea, Decreased Appetite , Hematochezia, Melena, Nausea, Vomiting : Denies: Dysuria, Frequency, Pain, Urgency Musculoskeletal: Reports: Back Pain Skin: Reports: Wound (foot) Neurological: Reports: Numbness, Tingling. Denies: Confusion, Dizziness, Headache, Tremors, Difficulty Walking, Weakness, Change in Speech, Gait Disturbance ED EXAM GENERAL NO PERIP PULSE - Physical Exam Exam: See Below Exam Limited By: No Limitations General Appearance: Alert, WD/WN, No Apparent Distress Eye Exam: Bilateral Eye: EOMI, Normal Fundi, Normal Inspection, PERRL Ears: Normal External Exam, Normal Canal, Hearing Grossly Normal, Normal TMs Nose: Normal Inspection, Normal Mucosa, No Blood Throat/Mouth: Normal Inspection, Normal Lips, Normal Gums, Normal Oropharynx, Normal Voice, No Airway Compromise Head: Atraumatic, Normocephalic Neck: Normal Inspection, Supple, Non-Tender, Full Range of Motion Respiratory/Chest: No Respiratory Distress, Lungs Clear, Normal Breath Sounds, No Accessory Muscle Use, Chest Non-Tender Cardiovascular: Regular Rate, Rhythm, No Edema, No Murmur, Tachycardia GI/Abdominal: Normal Bowel Sounds, Soft, Non-Tender, No Organomegaly, No Distention, No Abnormal Bruit, No Mass Neurological: Alert, Oriented, CN II-XII Intact, Normal Cognition, Normal Gait, No Motor/Sensory Deficits Psychiatric: Normal Affect, Normal Mood Skin Exam: Warm, Dry, Wound/Incision Course - Vital Signs Last Recorded V/S: Last Vital Signs Temp 96.7 F 11/08/18 01:35 Pulse 105 H 11/08/18 01:35 Resp 18 11/08/18 01:35 BP 171/94 H 11/08/18 01:35 Pulse Ox 100 11/08/18 01:35 - Orders/Labs/Meds Labs: Laboratory Tests 11/08/18 11/08/18 11/08/18 Range/Units 01:39 01:39 01:41 WBC 8.9 (5.0-10.0) 10^3/uL RBC 3.94 L (4.50-6.00) 10^6/uL Hgb 11.9 L (14.0-18.0) g/dL Hct 36.6 L (40.0-54.0) % MCV 92.9 (82.0-94.0) fL MCH 30.2 (27.0-32.0) pg MCHC 32.5 L (33.0-38.0) g/dL RDW Coeff of Ludmila 13.4 (11.0-15.0) % Plt Count 320 (150-400) 10^3/uL Neut % (Auto) 67.7 (35-85) % Lymph % (Auto) 20.5 (10-55) % [place] % (Auto) 8.8 (0-16) % Eos % (Auto) 2.6 (0-5) % Baso % (Auto) 0.4 (0-3) % Neut # (Auto) 6.04 (1.80-7.00) 10^3/uL Lymph # (Auto) 1.83 (1.00-4.80) 10^3/uL [place] # (Auto) 0.79 (0.00-0.80) 10^3/uL Eos # (Auto) 0.23 (0.00-0.45) 10^3/uL Baso # (Auto) 0.04 10^3/uL Sodium 128 L (136-145) mEq/L Potassium 4.3 (3.5-5.0) mEq/L Chloride 93 L (98-106) mEq/L Carbon Dioxide 26 (21-32) mmol/L BUN 11 (7-18) mg/dL Creatinine 1.2 (0.7-1.3) mg/dL Est Cr Clr Drug Dosing 86.43 mL/min Estimated GFR (MDRD) > 60 (>=60) mL/min Glucose (75-99) mg/dL POC Glucose (75-105) mg/dl Calcium 7.9 L (8.4-10.1) mg/dL C-Reactive Protein 3.2 H (0.2-0.8) mg/dL Urine Color Yellow (YELLOW) Urine Appearance Clear (CLEAR) Urine pH 6.0 (4.5-8.0) Ur Specific Allen 1.010 (1.003-1.020) Urine Protein 100 H (NEGATIVE) mg/dL Urine Glucose (UA) >=1000 H (NEGATIVE) mg/dL Urine Ketones Negative (NEGATIVE) mg/dL Urine Occult Blood Small H (NEGATIVE) Urine Nitrite Negative (NEGATIVE) Urine Bilirubin Negative (NEGATIVE) Urine Urobilinogen 0.2 (0.2-1.0) EU/dL Ur Leukocyte Esterase Negative (NEGATIVE) Urine RBC 10-20 H (0-5) /HPF Urine WBC Not seen (0-5) /HPF Ur Squamous Epith Cells Occasional H (NOT SEEN) /HPF Urine Bacteria Occasional H (NOT SEEN) /HPF Urine Opiates Screen (NEGATIVE) Ur Oxycodone Screen (NEGATIVE) Urine Methadone Screen (NEGATIVE) Ur Barbiturates Screen (NEGATIVE) U Tricyclic Antidepress (NEGATIVE) Ur Phencyclidine Scrn (NEGATIVE) Ur Amphetamine Screen (NEGATIVE) U Methamphetamines Scrn (NEGATIVE) Urine MDMA Screen (NEGATIVE) U Benzodiazepines Scrn (NEGATIVE) Urine Cocaine Screen (NEGATIVE) U Marijuana (THC) Screen (NEGATIVE) 11/08/18 11/08/18 11/08/18 Range/Units 01:44 02:09 02:15 WBC (5.0-10.0) 10^3/uL RBC (4.50-6.00) 10^6/uL Hgb (14.0-18.0) g/dL Hct (40.0-54.0) % MCV (82.0-94.0) fL MCH (27.0-32.0) pg MCHC (33.0-38.0) g/dL RDW Coeff of Ludmial (11.0-15.0) % Plt Count (150-400) 10^3/uL Neut % (Auto) (35-85) % Lymph % (Auto) (10-55) % [place] % (Auto) (0-16) % Eos % (Auto) (0-5) % Baso % (Auto) (0-3) % Neut # (Auto) (1.80-7.00) 10^3/uL Lymph # (Auto) (1.00-4.80) 10^3/uL Os[place] # (Auto) (0.00-0.80) 10^3/uL Eos # (Auto) (0.00-0.45) 10^3/uL Baso # (Auto) 10^3/uL Sodium (136-145) mEq/L Potassium (3.5-5.0) mEq/L Chloride (98-106) mEq/L Carbon Dioxide (21-32) mmol/L BUN (7-18) mg/dL Creatinine (0.7-1.3) mg/dL Est Cr Clr Drug Dosing mL/min Estimated GFR (MDRD) (>=60) mL/min Glucose (75-99) mg/dL POC Glucose > 500 H* > 500 H* (75-105) mg/dl Calcium (8.4-10.1) mg/dL C-Reactive Protein (0.2-0.8) mg/dL Urine Color (YELLOW) Urine Appearance (CLEAR) Urine pH (4.5-8.0) Ur Specific Allen (1.003-1.020) Urine Protein (NEGATIVE) mg/dL Urine Glucose (UA) (NEGATIVE) mg/dL Urine Ketones (NEGATIVE) mg/dL Urine Occult Blood (NEGATIVE) Urine Nitrite (NEGATIVE) Urine Bilirubin (NEGATIVE) Urine Urobilinogen (0.2-1.0) EU/dL Ur Leukocyte Esterase (NEGATIVE) Urine RBC (0-5) /HPF Urine WBC (0-5) /HPF Ur Squamous Epith Cells (NOT SEEN) /HPF Urine Bacteria (NOT SEEN) /HPF Urine Opiates Screen Negative (NEGATIVE) Ur Oxycodone Screen Negative (NEGATIVE) Urine Methadone Screen Negative (NEGATIVE) Ur Barbiturates Screen Negative (NEGATIVE) U Tricyclic Antidepress Negative (NEGATIVE) Ur Phencyclidine Scrn Negative (NEGATIVE) Ur Amphetamine Screen Negative (NEGATIVE) U Methamphetamines Scrn Negative (NEGATIVE) Urine MDMA Screen Negative (NEGATIVE) U Benzodiazepines Scrn Negative (NEGATIVE) Urine Cocaine Screen Negative (NEGATIVE) U Marijuana (THC) Screen Positive H (NEGATIVE) 11/08/18 Range/Units 02:39 WBC (5.0-10.0) 10^3/uL RBC (4.50-6.00) 10^6/uL Hgb (14.0-18.0) g/dL Hct (40.0-54.0) % MCV (82.0-94.0) fL MCH (27.0-32.0) pg MCHC (33.0-38.0) g/dL RDW Coeff of Ludmila (11.0-15.0) % Plt Count (150-400) 10^3/uL Neut % (Auto) (35-85) % Lymph % (Auto) (10-55) % [place] % (Auto) (0-16) % Eos % (Auto) (0-5) % Baso % (Auto) (0-3) % Neut # (Auto) (1.80-7.00) 10^3/uL Lymph # (Auto) (1.00-4.80) 10^3/uL [place] # (Auto) (0.00-0.80) 10^3/uL Eos # (Auto) (0.00-0.45) 10^3/uL Baso # (Auto) 10^3/uL Sodium (136-145) mEq/L Potassium (3.5-5.0) mEq/L Chloride (98-106) mEq/L Carbon Dioxide (21-32) mmol/L BUN (7-18) mg/dL Creatinine (0.7-1.3) mg/dL Est Cr Clr Drug Dosing mL/min Estimated GFR (MDRD) (>=60) mL/min Glucose (75-99) mg/dL POC Glucose > 500 H* (75-105) mg/dl Calcium (8.4-10.1) mg/dL C-Reactive Protein (0.2-0.8) mg/dL Urine Color (YELLOW) Urine Appearance (CLEAR) Urine pH (4.5-8.0) Ur Specific Allen (1.003-1.020) Urine Protein (NEGATIVE) mg/dL Urine Glucose (UA) (NEGATIVE) mg/dL Urine Ketones (NEGATIVE) mg/dL Urine Occult Blood (NEGATIVE) Urine Nitrite (NEGATIVE) Urine Bilirubin (NEGATIVE) Urine Urobilinogen (0.2-1.0) EU/dL Ur Leukocyte Esterase (NEGATIVE) Urine RBC (0-5) /HPF Urine WBC (0-5) /HPF Ur Squamous Epith Cells (NOT SEEN) /HPF Urine Bacteria (NOT SEEN) /HPF Urine Opiates Screen (NEGATIVE) Ur Oxycodone Screen (NEGATIVE) Urine Methadone Screen (NEGATIVE) Ur Barbiturates Screen (NEGATIVE) U Tricyclic Antidepress (NEGATIVE) Ur Phencyclidine Scrn (NEGATIVE) Ur Amphetamine Screen (NEGATIVE) U Methamphetamines Scrn (NEGATIVE) Urine MDMA Screen (NEGATIVE) U Benzodiazepines Scrn (NEGATIVE) Urine Cocaine Screen (NEGATIVE) U Marijuana (THC) Screen (NEGATIVE) Meds: Medications Discontinued Medications Generic Name Dose Route Start Last Admin Trade Name Freq PRN Reason Stop Dose Admin Acetaminophen 1,000 mg 11/08/18 03:04 Tylenol PO Q6H PRN Pain Sodium Chloride 1,000 mls @ 150 mls/hr 11/08/18 02:45 11/08/18 02:49 Normal Saline IV 150 mls/hr ASDIRECTED SAMMI Administration Ibuprofen 800 mg 11/08/18 02:59 11/08/18 03:08 Motrin PO 800 mg Q6H PRN Administration Pain Insulin Human Lispro 10 unit 11/08/18 01:42 11/08/18 01:46 Humalog SUBCUT 11/08/18 01:43 10 unit ONETIME ONE Administration Insulin Human Lispro 0 unit 11/08/18 01:58 11/08/18 02:02 Humalog SUBCUT 11/08/18 01:59 10 unit ONETIME ONE Administration Insulin Human Lispro 0 unit 11/08/18 02:17 11/08/18 02:17 Humalog SUBCUT 11/08/18 02:18 10 unit ONETIME ONE Administration Insulin Human Lispro 10 unit 11/08/18 02:45 11/08/18 02:56 Humalog SUBCUT 11/08/18 02:46 10 unit STAT ONE Administration - Re-Assessments/Exams Free Text/Narrative Re-Assessment/Exam: 11/08/18 02:49 Patient asymptomatic of elevated glucose. VSS. It is very typical for him to have blood glucose this elevated, however does have hyponatremia as well. Will keep patient extended ED, attempt to lower sugar, and recheck labs in am. Discussed that if we are not able to get his blood glucose controlled and electrolytes replaced we will need to transfer to higher level of care for insulin gtt etc. Patient is very noncompliant with insulin at home, which I suspect contributed to this issue. Patient requesting something for left ear pain. Order placed for Tylenol and ibuprofen to use as needed. Discussed that I will not give him further pain medications. Ear exam WNL. He is well known to me and has recently been weaned off his Percocet from his PCP. Departure - Departure Time of Disposition: 03:47 Disposition: Against Medical Advice 07 Condition: Fair Clinical Impression: Noncompliance with diabetes treatment, Hyperglycemia, Drug-seeking behavior, Diabetic foot ulcer associated with type 1 diabetes mellitus Type 1 diabetes Qualifiers: Diabetes mellitus complication status: with hyperglycemia Qualified Code(s): E10.65 - Type 1 diabetes mellitus with hyperglycemia - Discharge Information *PRESCRIPTION DRUG MONITORING PROGRAM REVIEWED*: Not Applicable *COPY OF PRESCRIPTION DRUG MONITORING REPORT IN PATIENT NEELAM: Not Applicable Referrals: PCP,Not In Area [Primary Care Provider] - Forms: ED Department Discharge - Problem List & Annotations (1) Type 1 diabetes SNOMED Code(s): 21162637 Code(s): E10.9 - TYPE 1 DIABETES MELLITUS WITHOUT COMPLICATIONS Status: Chronic Qualifiers: Diabetes mellitus complication status: with hyperglycemia Qualified Code(s) : E10.65 - Type 1 diabetes mellitus with hyperglycemia (2) Drug-seeking behavior SNOMED Code(s): 581205810 Code(s): Z76.5 - MALINGERER [CONSCIOUS SIMULATION] Status: Acute (3) Diabetic foot ulcer associated with type 1 diabetes mellitus SNOMED Code(s): 682129469430885 Code(s): E10.621 - TYPE 1 DIABETES MELLITUS WITH FOOT ULCER; L97.509 - NON- PRESSURE CHRONIC ULCER OTH PRT UNSP FOOT W UNSP SEVERITY Status: Resolved Priority: High Qualifiers: Diabetic foot ulcer location: other Laterality: right Non-pressure ulcer stage: with necrosis of muscle Qualified Code(s): E10.621 - Type 1 diabetes mellitus with foot ulcer; L97.513 - Non-pressure chronic ulcer of other part of right foot with necrosis of muscle (4) Hyperglycemia SNOMED Code(s): 50765399 Code(s): R73.9 - HYPERGLYCEMIA, UNSPECIFIED Status: Acute (5) Noncompliance with diabetes treatment SNOMED Code(s): 5469590 Code(s): Z91.19 - PATIENT'S NONCOMPLIANCE W OTH MEDICAL TREATMENT AND REGIMEN Status: Acute - Assessment/Plan Plan: Plan was to keep patient in extended ED for reassessment in am. Patient was given total of 40 units Humalog without significant reduction in blood glucose. Blood glucose remained > 500 throughout ED stay. Was also transfusing NS as patients Na was 128. VS remained stable throughout duration of ED visit. Patient requesting something stronger for his left ear pain, other than Tylenol and ibuprofen, and became frustrated with nursing staff when pain medications "stronger" than this were refused to patient, prompting him to leave AMA. I had discussed severity of issue with patient prior to this and my concern with this. Had discussed need for transfer and insulin gtt if unable to reduce blood sugar prior to him leaving AMA.
[2018-11-08] MEDS ORDERED: Sodium Chloride 0.9% 1,000 ML IV SCH (02:45)
[2018-11-08] MEDS ORDERED: Ibuprofen 200 MG Tab PO PRN (02:59)
[2018-11-08] MEDS ORDERED: Acetaminophen 325 MG Tab PO PRN (03:04)
== END 2018-11-08 03:47 | disposition left against medical advice (07) ==
LOC: CC.ED 01:28
DX: E10.621 Type 1 diabetes mellitus with foot ulcer (principal); L97.509 Non-pressure chronic ulcer of other part of unspecified foot with unspecified severity; E10.65 Type 1 diabetes mellitus with hyperglycemia; Z91.19 Patient's noncompliance with other medical treatment and regimen; Z76.5 Malingerer [conscious simulation]; Z53.20 Procedure and treatment not carried out because of patient's decision for unspecified reasons; E78.00 Pure hypercholesterolemia, unspecified; I10 Essential (primary) hypertension; E10.40 Type 1 diabetes mellitus with diabetic neuropathy, unspecified; F41.9 Anxiety disorder, unspecified; F32.9 Major depressive disorder, single episode, unspecified; F17.210 Nicotine dependence, cigarettes, uncomplicated
CPT/HCPCS: 36415; 80048; 80305; 81001; 82962; 85025; 86140; 96360; 96372; 99283; A9270; J1815; J7030

== ENCOUNTER 2018-11-26 16:37 | Emergency (ER) | payer BC ==
[2018-11-26] MEDS ORDERED: Levofloxacin 500 MG Tab PO ONE (16:38)
--- NOTE | 2018-11-26 16:58 | EDM.PDOC ---
ED HPI GENERAL MEDICAL PROBLEM - General Chief Complaint: Lower Extremity Injury/Pain Stated Complaint: "I have a sore on my right foot" Time Seen by Provider: 11/26/18 16:45 Source of Information: Reports: Patient History Limitations: Reports: No Limitations - History of Present Illness INITIAL COMMENTS - FREE TEXT/NARRATIVE: This patient is a 43 year old male that presents to the ER. Patient is a diabetic. Patient reports that he has a diabetic ulcer to the bottom of his right foot. Patient reports that he has had this ulcer for several months with several previous hospitalizations. Patient reports that the last 4 days the foot has been a little more red and has had a little more drainage than usual. Patient reports that he was supposed to go see wound clinic in [place], but has not set that up and that was months ago. Patient reports that his sugars have been 300s which is pretty good for him he reports. The patient ambulated into the ER and is wearing boots without socks. Patient denies n, v, d, f. No streaking of redness up the foot or leg. Onset Date: 11/22/18 Duration: Day(s): (4), Chronic (months), Getting Worse Location: Reports: Lower Extremity, Right Front/Back Body Image: 1 - foot ulcer 2 - foot ulcer on the 3rd digit toe with drainage 3 - redness, swelling, heat 4 - redness, swelling, heat. Quality: Reports: Throbbing Severity: Moderate Improves with: Reports: None Worsens with: Reports: None Associated Symptoms: Denies: Confusion, Chest Pain, Cough, cough w sputum, Diaphoresis, Fever/Chills, Headaches, Loss of Appetite, Malaise, Nausea/Vomiting , Rash, Seizure, Shortness of Breath, Syncope, Weakness - Related Data Allergies Allergy/AdvReac Type Severity Reaction Status Date / Time codeine Allergy Hives Verified 11/26/18 16:47 Home Meds: Home Meds Insulin Aspart [NovoLOG] See Protocol SQ QIDACANDBED 04/01/13 [History] Gabapentin [Neurontin] 300 mg PO BID 12/06/16 [History] metFORMIN [Glucophage] 1,000 mg PO BID 03/25/18 [History] Ibuprofen 600 mg PO TID PRN 05/21/18 [History] Lisinopril 20 mg PO DAILY 06/10/18 [History] oxyCODONE HCl/Acetaminophen [Oxycodone-Acetaminophen 5-325] 1 - 2 tab PO Q8H PRN #12 tablet 06/10/18 [Rx] Insulin Glarg,Human.Rec.Analog [Lantus] 30 units SQ BID 11/08/18 [History] Past Medical History Cardiovascular History: Reports: High Cholesterol, Hypertension Musculoskeletal History: Reports: Arthritis, Back Pain, Chronic Neurological History: Reports: Neuropathy, Diabetic Psychiatric History: Reports: Anxiety, Depression Endocrine/Metabolic History: Reports: Diabetes, Type I Dermatologic History: Reports: Other (See Below) Other Dermatologic History: diabetic ulcer to posterior right foot - Past Surgical History Cardiovascular Surgical History: Reports: None Endocrine Surgical History: Reports: None Neurological Surgical History: Reports: None Musculoskeletal Surgical History: Reports: None Dermatological Surgical History: Reports: None Social & Family History - Family History Family Medical History: Noncontributory Cardiac: Reports: Hypertension - Caffeine Use Caffeine Use: Reports: Soda Review of Systems - Review of Systems Review Of Systems: See Below Constitutional: Reports: No Symptoms Eyes: Reports: No Symptoms Ears: Reports: No Symptoms Nose: Reports: No Symptoms Mouth/Throat: Reports: No Symptoms Respiratory: Reports: No Symptoms Cardiovascular: Reports: No Symptoms GI/Abdominal: Reports: No Symptoms Genitourinary: Reports: No Symptoms Musculoskeletal: Reports: Foot Pain (right) Skin: Reports: Erythema (right foot), Wound (right foot ulcer with drainage, redness, swelling), Lesions (right 3rd toe) Neurological: Reports: No Symptoms Psychiatric: Reports: No Symptoms ED EXAM, GENERAL - Physical Exam Exam: See Below Exam Limited By: No Limitations General Appearance: Alert, WD/WN, No Apparent Distress Eye Exam: Bilateral Eye: PERRL Ears: Normal External Exam, Normal Canal, Hearing Grossly Normal, Normal TMs Ear Exam: Bilateral Ear: Auricle Normal, Canal Normal, TM normal Nose: Normal Inspection, Normal Mucosa, No Blood Throat/Mouth: Normal Inspection, Normal Lips, Normal Teeth, Normal Gums, Normal Oropharynx, Normal Voice, No Airway Compromise Head: Atraumatic, Normocephalic Neck: Normal Inspection, Supple, Non-Tender, Full Range of Motion Respiratory/Chest: No Respiratory Distress, Lungs Clear, Normal Breath Sounds, No Accessory Muscle Use Cardiovascular: Normal Peripheral Pulses, Regular Rate, Rhythm, No Edema, No Gallop, No JVD, No Murmur, No Rub Peripheral Pulses: 2+: Popliteal (L), Popliteal (R), Posterior Tibial (L), Posterior Tibial (R), Dorsalis Pedis (L), Dorsalis Pedis (R) GI/Abdominal: Soft, Non-Tender (Male) Exam: Deferred Rectal (Males) Exam: Deferred Back Exam: Normal Inspection, Full Range of Motion Extremities: Normal Capillary Refill, Increased Warmth (right foot), Redness ( right foot), Other (right foot dirty with what appears to be dirty, non compliant diabetic foot care. Large dirty worn boots with no socks. ). No: Andie's Sign, Leg Pain, Limited Range of Motion Neurological: Alert, Oriented Psychiatric: Normal Affect, Normal Mood Skin Exam: Warm, Dry, No Rash, Decubitus (right bottom of the foot near the 2,3, 4 toes. there is open wound right 3rd toe digit with serosangeous drainage. surrounding redness, heat. foul smelling. ), Increased Warmth Lymphatic: No Adenopathy Course - Vital Signs Last Recorded V/S: Last Vital Signs Temp 98.8 F 11/26/18 17:02 Pulse 108 H 11/26/18 17:02 Resp 20 11/26/18 17:02 BP 165/91 H 11/26/18 17:02 Pulse Ox 100 11/26/18 17:02 - Orders/Labs/Meds Orders: Active Orders 24 hr Category Date Time Status Foot wo Cont Rt [CT] Stat Exams 11/26/18 16:49 Taken CULTURE BLOOD [BC] Stat Lab 11/26/18 16:50 Received CULTURE BLOOD [BC] Stat Lab 11/26/18 16:55 Received CULTURE WOUND [RM] Stat Lab 11/26/18 17:00 Received Levofloxacin/Dextrose 5%-Water [Levaquin in D5W 500 MG/ Med 11/26/18 17:18 Active 100 ML] 500 mg Premix Bag 1 bag IV ONETIME levoFLOXacin [Take Home: Levofloxacin 500 MG, 1 Tab Med 11/26/18 17:57 Once Pack] 1 packet PO ONETIME ONE Blood Culture x2 Reflex Set [OM.PC] Stat Oth 11/26/18 16:48 Ordered Medication Orders Levofloxacin/Dextrose 500 mg/ (Premix) 100 mls @ 100 mls/hr IV ONETIME ONE Stop: 11/26/18 18:17 Labs: Laboratory Tests 11/26/18 11/26/18 11/26/18 Range/Units 16:50 16:55 16:55 WBC 8.6 (5.0-10.0) 10^3/uL RBC 3.77 L (4.50-6.00) 10^6/uL Hgb 11.2 L (14.0-18.0) g/dL Hct 33.4 L (40.0-54.0) % MCV 88.6 (82.0-94.0) fL MCH 29.7 (27.0-32.0) pg MCHC 33.5 (33.0-38.0) g/dL RDW Coeff of Ludmila 13.4 (11.0-15.0) % Plt Count 500 H (150-400) 10^3/uL Neut % (Auto) 66.5 (35-85) % Lymph % (Auto) 19.7 (10-55) % [place] % (Auto) 10.8 (0-16) % Eos % (Auto) 2.8 (0-5) % Baso % (Auto) 0.2 (0-3) % Neut # (Auto) 5.70 (1.80-7.00) 10^3/uL Lymph # (Auto) 1.69 (1.00-4.80) 10^3/uL [place] # (Auto) 0.93 H (0.00-0.80) 10^3/uL Eos # (Auto) 0.24 (0.00-0.45) 10^3/uL Baso # (Auto) 0.02 10^3/uL Sodium 134 L (136-145) mEq/L Potassium 4.0 (3.5-5.0) mEq/L Chloride 96 L (98-106) mEq/L Carbon Dioxide 30 (21-32) mmol/L BUN 7 (7-18) mg/dL Creatinine 0.9 (0.7-1.3) mg/dL Est Cr Clr Drug Dosing TNP Estimated GFR (MDRD) > 60 (>=60) mL/min Glucose 484 H* D (75-99) mg/dL Lactic Acid 1.5 (0.4-2.0) mmol/L Calcium 8.5 (8.4-10.1) mg/dL Total Bilirubin 0.1 (0.0-1.0) mg/dL AST 10 L (15-37) U/L ALT 10 L (12-78) U/L Alkaline Phosphatase 118 H (46-116) U/L Total Protein 6.7 (6.4-8.2) g/dL Albumin 2.2 L (3.4-5.0) g/dL Meds: Medications Generic Name Dose Route Start Last Admin Trade Name Freq PRN Reason Stop Dose Admin Levofloxacin/Dextrose 500 mg/ 100 mls @ 100 mls/hr 11/26/18 17:18 Premix IV 11/26/18 18:17 ONETIME ONE Discontinued Medications Generic Name Dose Route Start Last Admin Trade Name Freq PRN Reason Stop Dose Admin Insulin Human Regular 10 unit 11/26/18 17:10 Humulin R SUBCUT 11/26/18 17:11 NOW STA - Radiology Interpretation Free Text/Narrative:: CT: Radiologist: no osteo, no fx. there is soft tissue infection with gases. right foot distal. CT Results Date: 11/26/18 CT Results Time: 17:51 - Re-Assessments/Exams Free Text/Narrative Re-Assessment/Exam: 11/26/18 17:[address] of the foot to check for osteo. MRI not available. 11/26/18 17:25 Patient BS is greater than 400, but looking at previous labs it is always elevated, and multiple times in the 700s. Comparison to previous labs labs today unremarkable in comparison. 11/26/18 17:55 Discussed with patient possible admit. Labs unremarkable in comparison to all previous. CT shows no osteo. Patient would like to try out patient. I feel this is appropriate. He is educated to return for worsening, fever, or any other concerns of if he changes mind about admit. He will see his PCP Wednesday. I prescribed Levaquin based off previous culture reports. Departure - Departure Time of Disposition: 17:51 Disposition: Home, Self-Care 01 Condition: Fair Clinical Impression: Diabetic foot infection Diabetic foot ulcer Qualifiers: Diabetic foot ulcer location: unspecified part of foot Diabetes mellitus type: type 2 Laterality: right Non-pressure ulcer stage: limited to breakdown of skin Qualified Code(s): E11.621 - Type 2 diabetes mellitus with foot ulcer - Discharge Information *PRESCRIPTION DRUG MONITORING PROGRAM REVIEWED*: Not Applicable *COPY OF PRESCRIPTION DRUG MONITORING REPORT IN PATIENT NEELAM: Not Applicable Instructions: Insulin Treatment for Diabetes Mellitus, Diabetes Mellitus and Foot Care, Cellulitis, Adult, Preventing Pressure Injuries, Wound Infection, [id number] Forms: ED Department Discharge Additional Instructions: Followup with your primary care provider Wednesday for recheck and culture report Return to the ER for worsening of condition or any emergent concerns such as fever, vomiting, increase in redness Wash the wound with soap and water twice a day Keep foot and wound clean and dry Do not wear dirty shoes or sweaty shoes without socks Discuss with primary care provider wound clinic Levaquin 500mg 1 pill once a day for 9 days total: Give #1 take home, prescribed #8 no refill: Was given IV dose in ER today - My Orders Last 24 Hours: My Active Orders 11/26/18 16:48 Blood Culture x2 Reflex Set [OM.PC] Stat 11/26/18 16:49 Foot wo Cont Rt [CT] Stat 11/26/18 16:50 CULTURE BLOOD [BC] Stat 11/26/18 16:55 CULTURE BLOOD [BC] Stat 11/26/18 17:00 CULTURE WOUND [RM] Stat 11/26/18 17:18 Levofloxacin/Dextrose 5%-Water [Levaquin in D5W 500 MG/100 ML] 500 mg Premix Bag 1 bag IV ONETIME 11/26/18 17:57 levoFLOXacin [Take Home: Levofloxacin 500 MG, 1 Tab Pack] 1 packet PO ONETIME ONE - Assessment/Plan Last 24 Hours: My Active Orders 11/26/18 16:48 Blood Culture x2 Reflex Set [OM.PC] Stat 11/26/18 16:49 Foot wo Cont Rt [CT] Stat 11/26/18 16:50 CULTURE BLOOD [BC] Stat 11/26/18 16:55 CULTURE BLOOD [BC] Stat 11/26/18 17:00 CULTURE WOUND [RM] Stat 11/26/18 17:18 Levofloxacin/Dextrose 5%-Water [Levaquin in D5W 500 MG/100 ML] 500 mg Premix Bag 1 bag IV ONETIME 11/26/18 17:57 levoFLOXacin [Take Home: Levofloxacin 500 MG, 1 Tab Pack] 1 packet PO ONETIME ONE Plan: PLEASE SEE RN NOTE FOR PFSH.
[2018-11-26 17:03] VITALS: BP 165/91
[2018-11-26] MEDS ORDERED: Insulin Regular, Human 100 Units/ML 3 ML Vial SUBCUT STA (17:10)
[2018-11-26 17:18] LABS: CHLORIDE,CL 96 mEq/L (98-106); SODIUM,NA 134 mEq/L (136-145)
[2018-11-26] MEDS ORDERED: Levofloxacin/Dextrose 5%-Water 500 MG in Premix Bag 1 BAG IV ONE (17:18)
[2018-11-26] MEDS ORDERED: Take Home: Levofloxacin 500 MG Tab, 1 Tab Pack PO ONE (17:57)
[2018-11-26] MEDS ORDERED: Insulin Regular, Human 100 Units/ML 3 ML Vial ONE (18:27)
== END 2018-11-26 18:55 | disposition home or self-care (01) ==
LOC: CC.ED 16:37
DX: E10.621 Type 1 diabetes mellitus with foot ulcer (principal); L97.511 Non-pressure chronic ulcer of other part of right foot limited to breakdown of skin; I10 Essential (primary) hypertension; E10.40 Type 1 diabetes mellitus with diabetic neuropathy, unspecified; M19.90 Unspecified osteoarthritis, unspecified site; Z88.5 Allergy status to narcotic agent
CPT/HCPCS: 36415; 73700; 80053; 83605; 85025; 87040; 87070; 87077; 87186; 96365; 99283; A9270; J1956; 96372

== ENCOUNTER 2018-11-30 08:48 | Inpatient (IN) | payer BC ==
[2018-11-30] MEDS ORDERED: Ondansetron 4 MG Tab.DIS PO PRN (12:03)
[2018-11-30] MEDS ORDERED: Sodium Chloride 0.9% 10 ML Syringe FLUSH PRN (12:03)
[2018-11-30] MEDS ORDERED: Zolpidem 5 MG Tab PO PRN (12:03)
[2018-11-30 12:52] LABS: CHLORIDE,CL 98 mEq/L (98-106); SODIUM,NA 135 mEq/L (136-145)
[2018-11-30] MEDS: Gabapentin 300 MG Cap PO SCH ×2 (13:21→19:51)
[2018-11-30] MEDS: Pantoprazole 40 MG Vial IVPUSH SCH (13:21)
[2018-11-30] MEDS: Acetaminophen/oxyCODONE 325-5 MG Tab PO PRN ×2 (13:38→19:51)
[2018-11-30] MEDS ORDERED: Insulin Lispro 100 Units/ML 3 ML Vial SUBCUT SCH ×2 (16:00→17:00)
[2018-11-30] MEDS: Enoxaparin 40 MG/0.4 ML Syringe SUBCUT SCH (17:10)
[2018-11-30] MEDS: Insulin Lispro 100 Units/ML 3 ML Vial SUBCUT SCH ×2 (17:18→20:56)
[2018-11-30] MEDS: metFORMIN 500 MG Tab PO SCH (19:51)
[2018-11-30] MEDS: Insulin Glargine,Human Rec. Analog 100 Units/ML 3 ML Pen SUBCUT SCH (20:56)
[2018-12-01] MEDS: Acetaminophen/oxyCODONE 325-5 MG Tab PO PRN ×5 (00:07→20:21)
[2018-12-01] MEDS: Lisinopril 20 MG Tab PO SCH (07:51)
[2018-12-01] MEDS: Gabapentin 300 MG Cap PO SCH ×3 (07:51→20:21)
[2018-12-01] MEDS: metFORMIN 500 MG Tab PO SCH ×2 (07:51→20:22)
[2018-12-01] MEDS: Insulin Glargine,Human Rec. Analog 100 Units/ML 3 ML Pen SUBCUT SCH ×2 (07:52→21:24)
[2018-12-01] MEDS: Insulin Lispro 100 Units/ML 3 ML Vial SUBCUT SCH ×4 (07:53→21:23)
[2018-12-01] MEDS: Pantoprazole 40 MG Vial IVPUSH SCH (07:54)
[2018-12-01 08:48] LABS: CHLORIDE,CL 99 mEq/L (98-106); SODIUM,NA 135 mEq/L (136-145)
[2018-12-01] MEDS: Levofloxacin/Dextrose 5%-Water 750 MG in Premix Bag 1 BAG IV SCH (10:25)
[2018-12-01] MEDS: Enoxaparin 40 MG/0.4 ML Syringe SUBCUT SCH (15:22)
--- NOTE | 2018-12-01 21:20 | PCM.PN ---
- General Info Date of Service: 12/01/18 Admission Dx/Problem (Free Text): Diabetic Foot Ulcer Functional Status: Reports: Pain Controlled, Tolerating Diet. Denies: Ambulating - Review of Systems General: Reports: Weakness, Fatigue. Denies: Fever HEENT: Reports: No Symptoms Pulmonary: Denies: Shortness of Breath, Cough Cardiovascular: Denies: Chest Pain, Edema, Lightheadedness Gastrointestinal: Denies: Abdominal Pain, Nausea, Vomiting Genitourinary: Reports: No Symptoms Musculoskeletal: Reports: Foot Pain Skin: Reports: Other (open wounds to right foot and toe) Neurological: Reports: Other (neuropathy noted to right foot) - Patient Data Vitals - Most Recent: Last Vital Signs Temp 98.3 F 12/01/18 15:24 Pulse 90 12/01/18 15:24 Resp 18 12/01/18 15:24 BP 140/94 H 12/01/18 18:03 Pulse Ox 99 12/01/18 15:24 Weight - Most Recent: 159 lb 13.362 oz Lab Results Last 24 Hours: Laboratory Results - last 24 hr 12/01/18 12/01/18 12/01/18 Range/Units 07:49 08:35 08:35 WBC 9.4 (5.0-10.0) 10^3/uL RBC 4.09 L (4.50-6.00) 10^6/uL Hgb 12.1 L (14.0-18.0) g/dL Hct 36.6 L (40.0-54.0) % MCV 89.5 (82.0-94.0) fL MCH 29.6 (27.0-32.0) pg MCHC 33.1 (33.0-38.0) g/dL RDW Coeff of Ludmila 13.6 (11.0-15.0) % Plt Count 558 H (150-400) 10^3/uL Neut % (Auto) 60.9 (35-85) % Lymph % (Auto) 23.9 (10-55) % [place] % (Auto) 10.8 (0-16) % Eos % (Auto) 3.6 (0-5) % Baso % (Auto) 0.8 (0-3) % Neut # (Auto) 5.74 (1.80-7.00) 10^3/uL Lymph # (Auto) 2.25 (1.00-4.80) 10^3/uL [place] # (Auto) 1.02 H (0.00-0.80) 10^3/uL Eos # (Auto) 0.34 (0.00-0.45) 10^3/uL Baso # (Auto) 0.08 10^3/uL Sodium 135 L (136-145) mEq/L Potassium 4.5 (3.5-5.0) mEq/L Chloride 99 (98-106) mEq/L Carbon Dioxide 32 (21-32) mmol/L BUN 14 (7-18) mg/dL Creatinine 0.8 (0.7-1.3) mg/dL Est Cr Clr Drug Dosing 123.35 mL/min Estimated GFR (MDRD) > 60 (>=60) mL/min Glucose 297 H D (75-99) mg/dL POC Glucose 282 H (75-105) mg/dl Calcium 9.0 (8.4-10.1) mg/dL C-Reactive Protein 4.0 H (0.2-0.8) mg/dL 12/01/18 12/01/18 Range/Units 11:40 17:34 WBC (5.0-10.0) 10^3/uL RBC (4.50-6.00) 10^6/uL Hgb (14.0-18.0) g/dL Hct (40.0-54.0) % MCV (82.0-94.0) fL MCH (27.0-32.0) pg MCHC (33.0-38.0) g/dL RDW Coeff of Ludmila (11.0-15.0) % Plt Count (150-400) 10^3/uL Neut % (Auto) (35-85) % Lymph % (Auto) (10-55) % [place] % (Auto) (0-16) % Eos % (Auto) (0-5) % Baso % (Auto) (0-3) % Neut # (Auto) (1.80-7.00) 10^3/uL Lymph # (Auto) (1.00-4.80) 10^3/uL [place] # (Auto) (0.00-0.80) 10^3/uL Eos # (Auto) (0.00-0.45) 10^3/uL Baso # (Auto) 10^3/uL Sodium (136-145) mEq/L Potassium (3.5-5.0) mEq/L Chloride (98-106) mEq/L Carbon Dioxide (21-32) mmol/L BUN (7-18) mg/dL Creatinine (0.7-1.3) mg/dL Est Cr Clr Drug Dosing mL/min Estimated GFR (MDRD) (>=60) mL/min Glucose (75-99) mg/dL POC Glucose 139 H 313 H (75-105) mg/dl Calcium (8.4-10.1) mg/dL C-Reactive Protein (0.2-0.8) mg/dL Med Orders - Current: Current Medications Enoxaparin Sodium (Lovenox) 40 mg SUBCUT Q24H [facility] Last Admin: 12/01/18 15:22 Dose: 40 mg Gabapentin (Neurontin) 300 mg PO TID [facility] Last Admin: 12/01/18 20:21 Dose: 300 mg Levofloxacin/Dextrose 750 mg/ (Premix) 150 mls @ 100 mls/hr IV DAILY [facility] Last Admin: 12/01/18 10:25 Dose: 100 mls/hr Insulin Glargine (Lantus Solostar) 30 units SUBCUT BID [facility] Last Admin: 12/01/18 07:52 Dose: 30 units Insulin Human Lispro (Humalog) 0 unit SUBCUT WITHMEALSANDBED [facility]; Protocol Last Admin: 12/01/18 17:36 Dose: 12 units Lisinopril (Prinivil) 20 mg PO DAILY [facility] Last Admin: 12/01/18 07:51 Dose: 20 mg Metformin HCl (Glucophage) 1,000 mg PO BID [facility] Last Admin: 12/01/18 20:22 Dose: 1,000 mg Ondansetron HCl (Zofran Odt) 8 mg PO Q6H PRN PRN Reason: nausea, able to take PO Oxycodone/Acetaminophen (Percocet 325-5 Mg) 1 tab PO Q4H PRN PRN Reason: Pain (moderate 4-6) Last Admin: 12/01/18 20:21 Dose: 1 tab Pantoprazole Sodium (Protonix Iv) 40 mg IVPUSH DAILY [facility] Last Admin: 12/01/18 07:54 Dose: 40 mg Sodium Chloride (Saline Flush) 10 ml FLUSH ASDIRECTED PRN PRN Reason: Keep Vein Open Zolpidem Tartrate (Ambien) 5 mg PO BEDTIME PRN PRN Reason: Sleep Discontinued Medications Insulin Human Lispro (Humalog) 0 unit SUBCUT BIDAC [facility]; Protocol Insulin Human Lispro (Humalog) 0 unit SUBCUT QID [facility]; Protocol Last Admin: 11/30/18 16:55 Dose: Not Given - Exam General: Alert, Oriented HEENT: Mucous Membr. Moist/[address] Neck: Supple Lungs: Clear to Auscultation, Normal Respiratory Effort Cardiovascular: Regular Rate, Regular Rhythm GI/Abdominal Exam: Normal Bowel Sounds, Soft, Non-Tender Extremities: Redness Skin: Other (Patient has dime sized open area to sole of foot, has been debrided well per PT. Right 3rd toe is swollen, red. Has purulent drainage noted to area, foul odor noted. ) - Problem List & Annotations (1) Diabetic foot infection SNOMED Code(s): 854959251 Code(s): E11.628 - TYPE 2 DIABETES MELLITUS WITH OTHER SKIN COMPLICATIONS; L08.9 - LOCAL INFECTION OF THE SKIN AND SUBCUTANEOUS TISSUE, UNSP Status: Acute Priority: High Current Visit: Yes (2) Diabetic foot ulcer SNOMED Code(s): 476549429 Code(s): E11.621 - TYPE 2 DIABETES MELLITUS WITH FOOT ULCER; L97.509 - NON- PRESSURE CHRONIC ULCER OTH PRT UNSP FOOT W UNSP SEVERITY Status: Acute Priority: High Current Visit: Yes Qualifiers: Diabetic foot ulcer location: toe Diabetes mellitus type: type 2 Laterality: right Non-pressure ulcer stage: limited to breakdown of skin Qualified Code(s): E11.621 - Type 2 diabetes mellitus with foot ulcer; L97.511 - Non-pressure chronic ulcer of other part of right foot limited to breakdown of skin - Problem List Review Problem List Initiated/Reviewed/Updated: Yes - My Orders Last 24 Hours: My Active Orders 12/01/18 07:15 Bone Scan 3 Phase [NM] Routine 12/01/18 09:30 Levofloxacin/Dextrose 5%-Water [Levaquin in D5W 750 MG/150 ML] 750 mg Premix Bag 1 bag IV DAILY - Assessment Assessment:: Diabetic foot ulcer with infection - Plan Plan:: Patient resting comfortably this am. States is under control now. Foot ulcers debrided by PT. Has considerable redness, swelling and warmth to 3rd toe. Ulcer to sole of foot looks improved from past evaluations. Bone scan done this am. WBC 9.4. CRP 4.0. Afebrile. Will start IV Levaquin 750 mg daily. No weight bearing to front portion of foot. Continue PT. Will likely be hospitalized for the next week or so for IV antibiotics.
[2018-12-02] MEDS: Acetaminophen/oxyCODONE 325-5 MG Tab PO PRN ×6 (00:24→23:29)
[2018-12-02] MEDS: metFORMIN 500 MG Tab PO SCH ×2 (07:26→19:40)
[2018-12-02] MEDS: Gabapentin 300 MG Cap PO SCH ×3 (07:27→19:40)
[2018-12-02] MEDS: Lisinopril 20 MG Tab PO SCH (07:27)
[2018-12-02] MEDS: Pantoprazole 40 MG Vial IVPUSH SCH (07:28)
[2018-12-02] MEDS: Levofloxacin/Dextrose 5%-Water 750 MG in Premix Bag 1 BAG IV SCH (07:33)
[2018-12-02] MEDS: Insulin Lispro 100 Units/ML 3 ML Vial SUBCUT SCH ×4 (07:41→20:07)
[2018-12-02] MEDS: Insulin Glargine,Human Rec. Analog 100 Units/ML 3 ML Pen SUBCUT SCH ×2 (07:43→20:06)
--- NOTE | 2018-12-02 16:02 | PCM.PN ---
- General Info Date of Service: 12/02/18 Admission Dx/Problem (Free Text): Diabetic Foot Ulcer Functional Status: Reports: Pain Controlled, Tolerating Diet. Denies: Ambulating - Review of Systems General: Reports: Malaise. Denies: Fever HEENT: Reports: No Symptoms Pulmonary: Denies: Shortness of Breath, Cough Cardiovascular: Denies: Chest Pain, Edema, Lightheadedness Gastrointestinal: Denies: Abdominal Pain, Nausea, Vomiting Genitourinary: Reports: No Symptoms Musculoskeletal: Reports: Leg Pain, Foot Pain Skin: Reports: Other (open wounds) Neurological: Reports: No Symptoms - Patient Data Vitals - Most Recent: Last Vital Signs Temp 98.1 F 12/02/18 12:00 Pulse 89 12/02/18 12:00 Resp 20 12/02/18 12:00 BP 143/91 H 12/02/18 12:00 Pulse Ox 99 12/02/18 12:00 Weight - Most Recent: 159 lb 13.362 oz Lab Results Last 24 Hours: Laboratory Results - last 24 hr 12/01/18 12/01/18 12/02/18 Range/Units 17:34 21:22 07:39 POC Glucose 313 H 220 H 238 H (75-105) mg/dl Med Orders - Current: Current Medications Amlodipine Besylate (Norvasc) 5 mg PO BEDTIME [facility] Enoxaparin Sodium (Lovenox) 40 mg SUBCUT Q24H [facility] Last Admin: 12/01/18 15:22 Dose: 40 mg Gabapentin (Neurontin) 300 mg PO TID [facility] Last Admin: 12/02/18 14:02 Dose: 300 mg Levofloxacin/Dextrose 750 mg/ (Premix) 150 mls @ 100 mls/hr IV DAILY [facility] Last Admin: 12/02/18 07:33 Dose: 100 mls/hr Insulin Glargine (Lantus Solostar) 30 units SUBCUT BID [facility] Last Admin: 12/02/18 07:43 Dose: 30 units Insulin Human Lispro (Humalog) 0 unit SUBCUT WITHMEALSANDBED [facility]; Protocol Last Admin: 12/02/18 12:07 Dose: 6 units Lisinopril (Prinivil) 20 mg PO DAILY [facility] Last Admin: 12/02/18 07:27 Dose: 20 mg Metformin HCl (Glucophage) 1,000 mg PO BID [facility] Last Admin: 12/02/18 07:26 Dose: 1,000 mg Ondansetron HCl (Zofran Odt) 8 mg PO Q6H PRN PRN Reason: nausea, able to take PO Oxycodone/Acetaminophen (Percocet 325-5 Mg) 1 tab PO Q4H PRN PRN Reason: Pain (moderate 4-6) Last Admin: 12/02/18 14:02 Dose: 1 tab Pantoprazole Sodium (Protonix Iv) 40 mg IVPUSH DAILY [facility] Last Admin: 12/02/18 07:28 Dose: 40 mg Sodium Chloride (Saline Flush) 10 ml FLUSH ASDIRECTED PRN PRN Reason: Keep Vein Open Zolpidem Tartrate (Ambien) 5 mg PO BEDTIME PRN PRN Reason: Sleep Discontinued Medications Insulin Human Lispro (Humalog) 0 unit SUBCUT BIDAC [facility]; Protocol Insulin Human Lispro (Humalog) 0 unit SUBCUT QID [facility]; Protocol Last Admin: 11/30/18 16:55 Dose: Not Given - Exam General: Alert, Oriented HEENT: Mucous Membr. Moist/[place] Neck: Supple Lungs: Clear to Auscultation, Normal Respiratory Effort Cardiovascular: Regular Rate, Regular Rhythm GI/Abdominal Exam: Normal Bowel Sounds, Soft, Non-Tender Extremities: Normal Inspection, Leg Pain, Increased Warmth Wound/Incisions: Drainage, Erythema, Other - Problem List & Annotations (1) Diabetic foot infection SNOMED Code(s): 711982613 Code(s): E11.628 - TYPE 2 DIABETES MELLITUS WITH OTHER SKIN COMPLICATIONS; L08.9 - LOCAL INFECTION OF THE SKIN AND SUBCUTANEOUS TISSUE, UNSP Status: Acute Priority: High Current Visit: Yes (2) Diabetic foot ulcer SNOMED Code(s): 442458163 Code(s): E11.621 - TYPE 2 DIABETES MELLITUS WITH FOOT ULCER; L97.509 - NON- PRESSURE CHRONIC ULCER OTH PRT UNSP FOOT W UNSP SEVERITY Status: Acute Priority: High Current Visit: Yes Qualifiers: Diabetic foot ulcer location: toe Diabetes mellitus type: type 2 Laterality: right Non-pressure ulcer stage: limited to breakdown of skin Qualified Code(s): E11.621 - Type 2 diabetes mellitus with foot ulcer; L97.511 - Non-pressure chronic ulcer of other part of right foot limited to breakdown of skin - Problem List Review Problem List Initiated/Reviewed/Updated: Yes - My Orders Last 24 Hours: My Active Orders 12/02/18 20:00 amLODIPine [Norvasc] 5 mg PO BEDTIME - Assessment Assessment:: Diabetic foot ulcer with infection - Plan Plan:: Patient resting comfortably this am. States is under control now. Foot ulcers debrided by PT. Has considerable redness, swelling and warmth to 3rd toe. Ulcer to sole of foot looks improved from past evaluations. Bone scan done this am. WBC 9.4. CRP 4.0. Afebrile. Will start IV Levaquin 750 mg daily. No weight bearing to front portion of foot. Continue PT. Will likely be hospitalized for the next week or so for IV antibiotics. 12-02-2018 Patient stable. States pain is under control. Slept well. Blood sugars have been high but normal for patient. Right foot wrapped. No redness noted to midfoot. Awaiting report of bone scan. Continue IV antibiotics, PT.
[2018-12-02] MEDS: Enoxaparin 40 MG/0.4 ML Syringe SUBCUT SCH (16:21)
[2018-12-02] MEDS: amLODIPine 10 MG Tab PO SCH (19:40)
[2018-12-03] MEDS: Acetaminophen/oxyCODONE 325-5 MG Tab PO PRN ×5 (03:31→21:52)
[2018-12-03] MEDS: Pantoprazole 40 MG Vial IVPUSH SCH (07:41)
[2018-12-03] MEDS: Levofloxacin/Dextrose 5%-Water 750 MG in Premix Bag 1 BAG IV SCH (07:45)
[2018-12-03] MEDS: metFORMIN 500 MG Tab PO SCH ×2 (07:46→19:40)
[2018-12-03] MEDS: Lisinopril 20 MG Tab PO SCH (07:47)
[2018-12-03] MEDS: Gabapentin 300 MG Cap PO SCH ×3 (07:47→19:40)
[2018-12-03] MEDS: Insulin Lispro 100 Units/ML 3 ML Vial SUBCUT SCH ×4 (07:50→20:35)
[2018-12-03] MEDS: Insulin Glargine,Human Rec. Analog 100 Units/ML 3 ML Pen SUBCUT SCH ×2 (07:52→20:36)
--- NOTE | 2018-12-03 13:43 | PCM.PN ---
- General Info Date of Service: 12/03/18 Admission Dx/Problem (Free Text): Diabetic Foot Ulcer Functional Status: Reports: Pain Controlled - Review of Systems General: Reports: No Symptoms. Denies: Fever HEENT: Reports: No Symptoms Pulmonary: Reports: No Symptoms Cardiovascular: Reports: No Symptoms Gastrointestinal: Reports: No Symptoms Genitourinary: Reports: No Symptoms Musculoskeletal: Reports: Foot Pain (right foot). Denies: Neck Pain Skin: Reports: Other (open wound right foot) Neurological: Reports: No Symptoms Psychiatric: Reports: No Symptoms - Patient Data Vitals - Most Recent: Last Vital Signs Temp 36.5 C 12/03/18 12:00 Pulse 90 12/03/18 12:00 Resp 20 12/03/18 12:00 BP 139/94 H 12/03/18 12:00 Pulse Ox 99 12/03/18 12:00 Weight - Most Recent: 72.5 kg Lab Results Last 24 Hours: Laboratory Results - last 24 hr 12/02/18 12/02/18 12/02/18 Range/Units 11:40 17:13 19:48 POC Glucose 208 H 182 H 370 H (75-105) mg/dl 12/03/18 Range/Units 07:50 POC Glucose 145 H (75-105) mg/dl Med Orders - Current: Current Medications Amlodipine Besylate (Norvasc) 5 mg PO BEDTIME [facility] Last Admin: 12/02/18 19:40 Dose: 5 mg Enoxaparin Sodium (Lovenox) 40 mg SUBCUT Q24H [facility] Last Admin: 12/02/18 16:21 Dose: 40 mg Gabapentin (Neurontin) 300 mg PO TID [facility] Last Admin: 12/03/18 07:47 Dose: 300 mg Levofloxacin/Dextrose 750 mg/ (Premix) 150 mls @ 100 mls/hr IV DAILY [facility] Last Admin: 12/03/18 07:45 Dose: 100 mls/hr Insulin Glargine (Lantus Solostar) 30 units SUBCUT BID [facility] Last Admin: 12/03/18 07:52 Dose: 30 units Insulin Human Lispro (Humalog) 0 unit SUBCUT WITHMEALSANDBED [facility]; Protocol Last Admin: 12/03/18 12:11 Dose: 3 units Lisinopril (Prinivil) 20 mg PO DAILY [facility] Last Admin: 12/03/18 07:47 Dose: 20 mg Metformin HCl (Glucophage) 1,000 mg PO BID [facility] Last Admin: 12/03/18 07:46 Dose: 1,000 mg Ondansetron HCl (Zofran Odt) 8 mg PO Q6H PRN PRN Reason: nausea, able to take PO Oxycodone/Acetaminophen (Percocet 325-5 Mg) 1 tab PO Q4H PRN PRN Reason: Pain (moderate 4-6) Last Admin: 12/03/18 12:13 Dose: 1 tab Pantoprazole Sodium (Protonix Iv) 40 mg IVPUSH DAILY [facility] Last Admin: 12/03/18 07:41 Dose: 40 mg Sodium Chloride (Saline Flush) 10 ml FLUSH ASDIRECTED PRN PRN Reason: Keep Vein Open Zolpidem Tartrate (Ambien) 5 mg PO BEDTIME PRN PRN Reason: Sleep Discontinued Medications Insulin Human Lispro (Humalog) 0 unit SUBCUT BIDAC [facility]; Protocol Insulin Human Lispro (Humalog) 0 unit SUBCUT QID [facility]; Protocol Last Admin: 11/30/18 16:55 Dose: Not Given - Exam General: Alert, Oriented, Cooperative, No Acute Distress Neck: Supple Lungs: Clear to Auscultation, Normal Respiratory Effort Cardiovascular: Regular Rate, Regular Rhythm GI/Abdominal Exam: Normal Bowel Sounds, Soft, Non-Tender Back Exam: Normal Inspection, Full Range of Motion Extremities: Normal Inspection, Normal Range of Motion, Non-Tender, No Pedal Edema, Normal Capillary Refill, Other (except for the right foot which has a ) Peripheral Pulses: 2+: Posterior Tibial (L), Posterior Tibial (R), Dorsalis Pedis (L), Dorsalis Pedis (R) Skin: Warm, Dry, Intact (except the right foot, has a healing ulcer to the distal end othe plantar side of the foot that is much improved since the last time I saw this pt and open wound to the top of the 3rd digit right foot , no redness in the foot. ) Neurological: No New Focal Deficit Psy/Mental Status: Alert, Normal Affect, Normal Mood - Problem List & Annotations (1) Diabetic foot infection SNOMED Code(s): 284283840 Code(s): E11.628 - TYPE 2 DIABETES MELLITUS WITH OTHER SKIN COMPLICATIONS; L08.9 - LOCAL INFECTION OF THE SKIN AND SUBCUTANEOUS TISSUE, UNSP Status: Acute Priority: High Current Visit: Yes (2) Diabetic foot ulcer SNOMED Code(s): 641821777 Code(s): E11.621 - TYPE 2 DIABETES MELLITUS WITH FOOT ULCER; L97.509 - NON- PRESSURE CHRONIC ULCER OTH PRT UNSP FOOT W UNSP SEVERITY Status: Acute Priority: High Current Visit: Yes Qualifiers: Diabetic foot ulcer location: toe Diabetes mellitus type: type 2 Laterality: right Non-pressure ulcer stage: limited to breakdown of skin Qualified Code(s): E11.621 - Type 2 diabetes mellitus with foot ulcer; L97.511 - Non-pressure chronic ulcer of other part of right foot limited to breakdown of skin (3) Hyperglycemia SNOMED Code(s): 08645785 Code(s): R73.9 - HYPERGLYCEMIA, UNSPECIFIED Status: Acute Current Visit: No - Problem List Review Problem List Initiated/Reviewed/Updated: Yes - Assessment Assessment:: Diabetic foot ulcer with infection - Plan Plan:: Patient resting comfortably this am. States is under control now. Foot ulcers debrided by PT. Has considerable redness, swelling and warmth to 3rd toe. Ulcer to sole of foot looks improved from past evaluations. Bone scan done this am. WBC 9.4. CRP 4.0. Afebrile. Will start IV Levaquin 750 mg daily. No weight bearing to front portion of foot. Continue PT. Will likely be hospitalized for the next week or so for IV antibiotics. 12-02-2018 Patient stable. States pain is under control. Slept well. Blood sugars have been high but normal for patient. Right foot wrapped. No redness noted to midfoot. Awaiting report of bone scan. Continue IV antibiotics, PT. 12/03/2018 1340 the pt is getting IV Levaquin, see CX/Sensitivity report, the pt is a known diabetic that is uncontrolled and is non-compliant. the pt is also have wound treatments by physical therapy. The plan is to continue IV antibiotics and whirlpool therapy. will recheck labs on wednesday.
[2018-12-03] MEDS: Enoxaparin 40 MG/0.4 ML Syringe SUBCUT SCH (17:20)
[2018-12-03] MEDS: amLODIPine 10 MG Tab PO SCH (19:40)
[2018-12-04] MEDS: Acetaminophen/oxyCODONE 325-5 MG Tab PO PRN ×5 (04:09→23:19)
[2018-12-04] MEDS: Pantoprazole 40 MG Vial IVPUSH SCH (07:40)
[2018-12-04] MEDS: Levofloxacin/Dextrose 5%-Water 750 MG in Premix Bag 1 BAG IV SCH (07:43)
[2018-12-04] MEDS: Gabapentin 300 MG Cap PO SCH ×3 (07:44→20:50)
[2018-12-04] MEDS: Lisinopril 20 MG Tab PO SCH (07:44)
[2018-12-04] MEDS: metFORMIN 500 MG Tab PO SCH ×2 (07:44→20:51)
[2018-12-04] MEDS: Insulin Lispro 100 Units/ML 3 ML Vial SUBCUT SCH ×4 (07:47→20:52)
[2018-12-04] MEDS: Insulin Glargine,Human Rec. Analog 100 Units/ML 3 ML Pen SUBCUT SCH ×2 (08:22→20:51)
--- NOTE | 2018-12-04 08:47 | PCM.PN ---
- General Info Date of Service: 12/04/18 Admission Dx/Problem (Free Text): Diabetic Foot Ulcer Subjective Update: diabetic ulcer right foot 3rd digit Functional Status: Reports: Pain Controlled - Review of Systems General: Reports: No Symptoms. Denies: Fever, Chills HEENT: Reports: No Symptoms Pulmonary: Reports: No Symptoms Cardiovascular: Reports: No Symptoms Gastrointestinal: Reports: No Symptoms Genitourinary: Reports: No Symptoms Musculoskeletal: Reports: No Symptoms Skin: Reports: Other (diabetic ulcer as above) Neurological: Reports: No Symptoms Psychiatric: Reports: No Symptoms - Patient Data Vitals - Most Recent: Last Vital Signs Temp 36.3 C 12/04/18 08:00 Pulse 83 12/04/18 08:00 Resp 16 12/04/18 08:00 BP 137/88 12/04/18 08:00 Pulse Ox 96 12/04/18 08:00 Weight - Most Recent: 72.5 kg Lab Results Last 24 Hours: Laboratory Results - last 24 hr 12/03/18 12/03/18 12/03/18 Range/Units 11:43 17:18 20:33 POC Glucose 181 H 91 262 H (75-105) mg/dl 12/04/18 12/04/18 Range/Units 05:06 07:47 POC Glucose 92 75 (75-105) mg/dl Med Orders - Current: Current Medications Amlodipine Besylate (Norvasc) 5 mg PO BEDTIME [facility] Last Admin: 12/03/18 19:40 Dose: 5 mg Enoxaparin Sodium (Lovenox) 40 mg SUBCUT Q24H [facility] Last Admin: 12/03/18 17:20 Dose: 40 mg Gabapentin (Neurontin) 300 mg PO TID [facility] Last Admin: 12/04/18 07:44 Dose: 300 mg Levofloxacin/Dextrose 750 mg/ (Premix) 150 mls @ 100 mls/hr IV DAILY [facility] Last Admin: 12/04/18 07:43 Dose: 100 mls/hr Insulin Glargine (Lantus Solostar) 30 units SUBCUT BID [facility] Last Admin: 12/04/18 08:22 Dose: 30 units Insulin Human Lispro (Humalog) 0 unit SUBCUT WITHMEALSANDBED [facility]; Protocol Last Admin: 12/04/18 07:47 Dose: Not Given Lisinopril (Prinivil) 20 mg PO DAILY [facility] Last Admin: 12/04/18 07:44 Dose: 20 mg Metformin HCl (Glucophage) 1,000 mg PO BID [facility] Last Admin: 12/04/18 07:44 Dose: 1,000 mg Ondansetron HCl (Zofran Odt) 8 mg PO Q6H PRN PRN Reason: nausea, able to take PO Oxycodone/Acetaminophen (Percocet 325-5 Mg) 1 tab PO Q4H PRN PRN Reason: Pain (moderate 4-6) Last Admin: 12/04/18 04:09 Dose: 1 tab Pantoprazole Sodium (Protonix Iv) 40 mg IVPUSH DAILY [facility] Last Admin: 12/04/18 07:40 Dose: 40 mg Sodium Chloride (Saline Flush) 10 ml FLUSH ASDIRECTED PRN PRN Reason: Keep Vein Open Zolpidem Tartrate (Ambien) 5 mg PO BEDTIME PRN PRN Reason: Sleep Discontinued Medications Insulin Human Lispro (Humalog) 0 unit SUBCUT BIDAC [facility]; Protocol Insulin Human Lispro (Humalog) 0 unit SUBCUT QID [facility]; Protocol Last Admin: 11/30/18 16:55 Dose: Not Given - Exam General: Alert, Oriented, Cooperative, No Acute Distress Neck: Supple Lungs: Clear to Auscultation, Normal Respiratory Effort Cardiovascular: Regular Rate, Regular Rhythm GI/Abdominal Exam: Normal Bowel Sounds, Soft, Non-Tender, No Distention Back Exam: Normal Inspection, Full Range of Motion Extremities: Normal Inspection, Normal Range of Motion, Non-Tender, Normal Capillary Refill, Other (except the right foot, 3rd digit has an ulcer, no foot redness) Peripheral Pulses: 2+: Radial (L) Skin: Warm, Dry, Intact (except toe ulcer as above) Wound/Incisions: Dressing Dry and Intact Neurological: No New Focal Deficit Psy/Mental Status: Alert, Normal Affect, Normal Mood - Problem List & Annotations (1) Diabetic foot infection SNOMED Code(s): 780315248 Code(s): E11.628 - TYPE 2 DIABETES MELLITUS WITH OTHER SKIN COMPLICATIONS; L08.9 - LOCAL INFECTION OF THE SKIN AND SUBCUTANEOUS TISSUE, UNSP Status: Acute Priority: High Current Visit: Yes (2) Diabetic foot ulcer SNOMED Code(s): 293953922 Code(s): E11.621 - TYPE 2 DIABETES MELLITUS WITH FOOT ULCER; L97.509 - NON- PRESSURE CHRONIC ULCER OTH PRT UNSP FOOT W UNSP SEVERITY Status: Acute Priority: High Current Visit: Yes Qualifiers: Diabetic foot ulcer location: toe Diabetes mellitus type: type 2 Laterality: right Non-pressure ulcer stage: limited to breakdown of skin Qualified Code(s): E11.621 - Type 2 diabetes mellitus with foot ulcer; L97.511 - Non-pressure chronic ulcer of other part of right foot limited to breakdown of skin (3) Hyperglycemia SNOMED Code(s): 50655857 Code(s): R73.9 - HYPERGLYCEMIA, UNSPECIFIED Status: Acute Current Visit: No - Problem List Review Problem List Initiated/Reviewed/Updated: Yes - My Orders Last 24 Hours: My Active Orders 12/05/18 05:00 CRP, HIGH SENSITIVITY [REF] Routine 12/05/18 05:11 BASIC METABOLIC PANEL,BMP [CHEM] AM CBC WITH AUTO DIFF [HEME] AM 12/06/18 05:11 CBC WITH AUTO DIFF [HEME] AM - Assessment Assessment:: Diabetic foot ulcer with infection - Plan Plan:: Patient resting comfortably this am. States is under control now. Foot ulcers debrided by PT. Has considerable redness, swelling and warmth to 3rd toe. Ulcer to sole of foot looks improved from past evaluations. Bone scan done this am. WBC 9.4. CRP 4.0. Afebrile. Will start IV Levaquin 750 mg daily. No weight bearing to front portion of foot. Continue PT. Will likely be hospitalized for the next week or so for IV antibiotics. 12-02-2018 Patient stable. States pain is under control. Slept well. Blood sugars have been high but normal for patient. Right foot wrapped. No redness noted to midfoot. Awaiting report of bone scan. Continue IV antibiotics, PT. 12/03/2018 1340 the pt is getting IV Levaquin, see CX/Sensitivity report, the pt is a known diabetic that is uncontrolled and is non-compliant. the pt is also have wound treatments by physical therapy. The plan is to continue IV antibiotics and whirlpool therapy. will recheck labs on wednesday. 12/04/2018 0830 will continue treatment plan, will assess for disposition in am for further whirlpool tx and or transfer for surgical evaluation
[2018-12-04] MEDS: Enoxaparin 40 MG/0.4 ML Syringe SUBCUT SCH (16:31)
[2018-12-04] MEDS: amLODIPine 10 MG Tab PO SCH (20:51)
[2018-12-05] MEDS: Acetaminophen/oxyCODONE 325-5 MG Tab PO PRN ×2 (04:04→07:55)
[2018-12-05 07:32] LABS: CHLORIDE,CL 101 mEq/L (98-106); SODIUM,NA 138 mEq/L (136-145)
[2018-12-05] MEDS: Lisinopril 20 MG Tab PO SCH (07:33)
[2018-12-05] MEDS: Pantoprazole 40 MG Vial IVPUSH SCH (07:34)
[2018-12-05] MEDS: metFORMIN 500 MG Tab PO SCH (07:34)
[2018-12-05] MEDS: Gabapentin 300 MG Cap PO SCH (07:34)
[2018-12-05] MEDS: Insulin Glargine,Human Rec. Analog 100 Units/ML 3 ML Pen SUBCUT SCH (07:35)
[2018-12-05] MEDS: Insulin Lispro 100 Units/ML 3 ML Vial SUBCUT SCH (07:36)
[2018-12-05] MEDS: Levofloxacin/Dextrose 5%-Water 750 MG in Premix Bag 1 BAG IV SCH (07:40)
[2018-12-05 07:57] VITALS: BP 149/92
--- NOTE | 2018-12-05 20:25 | PCM.DCSUM1 ---
Discharge Summary - Hospital Course Free Text/Narrative:: Patient presented to clinic to see Dr. Shirley with concerns of infection in his right foot. Has had issues with infection off and on to the sole of his foot for many months. Now notes swelling, redness and drainage from the 3rd toe of his right foot. Has noted a foul odor to the drainage. Afebrile. Blood pressure elevated. Patient has history of uncontrolled diabetes. States blood sugars have varied between 200-400. WBC 11.6. CRP 4.2. Patient did have recent culture that grew out MRSA, beta hemolytic strep. Sensitive to Levaquin. Admitted and started on Levaquin. PT for wound care. Diagnosis: Stroke: No Modified Carbon Scale: No Symptoms at All Modified Carbon Scale Score: 0 - Discharge Data Discharge Date: 12/05/18 Discharge Disposition: Home, Self-Care 01 Condition: Good - Discharge Diagnosis/Problem(s) (1) Diabetic foot infection SNOMED Code(s): 387350166 ICD Code: E11.628 - TYPE 2 DIABETES MELLITUS WITH OTHER SKIN COMPLICATIONS; L08.9 - LOCAL INFECTION OF THE SKIN AND SUBCUTANEOUS TISSUE, UNSP Status: Acute Priority: Low (2) Diabetic foot ulcer SNOMED Code(s): 397165340 ICD Code: E11.621 - TYPE 2 DIABETES MELLITUS WITH FOOT ULCER; L97.509 - NON- PRESSURE CHRONIC ULCER OTH PRT UNSP FOOT W UNSP SEVERITY Status: Acute Priority: High Qualifiers: Diabetic foot ulcer location: toe Diabetes mellitus type: type 2 Laterality: right Non-pressure ulcer stage: limited to breakdown of skin Qualified Code(s): E11.621 - Type 2 diabetes mellitus with foot ulcer; L97.511 - Non-pressure chronic ulcer of other part of right foot limited to breakdown of skin - Patient Summary/Data Complications: none Consults: Consultations 11/30/18 12:03 PT Evaluation and Treatment [CONS] Routine Hospital Course: Patient continues to be afebrile. Blood pressure was high, started on Norvasc. Blood pressure has improved, today 140s/92, 138/75. WBC normal at 8.8, CRP 0.9. 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 Wound has not shown much improvement as of yet, continues to be swollen, red with a fair amount of drainage. Foul odor noted. PT has continued to work with patient, have debrided wounds. Is using scooter for ambulation. Will discharge home with Levaquin. Set up to see Dr. Omer on Wednesday. Will consult with infection disease as well. - Patient Instructions Diet: Usual Diet as Tolerated Activity: As Tolerated - Discharge Plan *PRESCRIPTION DRUG MONITORING PROGRAM REVIEWED*: No *COPY OF PRESCRIPTION DRUG MONITORING REPORT IN PATIENT NEELAM: No Prescriptions/Med Rec: amLODIPine [Norvasc] 5 mg PO BEDTIME #30 tab Levofloxacin [Levaquin] 750 mg PO DAILY #30 tablet Home Medications: Home Meds Insulin Aspart [NovoLOG] See Protocol SQ QIDACANDBED 04/01/13 [History] Gabapentin [Neurontin] 300 mg PO TID 12/06/16 [History] metFORMIN [Glucophage] 1,000 mg PO BID 03/25/18 [History] Ibuprofen 600 mg PO TID PRN 05/21/18 [History] Lisinopril 20 mg PO DAILY 06/10/18 [History] oxyCODONE HCl/Acetaminophen [Oxycodone-Acetaminophen 5-325] 1 - 2 tab PO Q8H PRN #12 tablet 06/10/18 [Rx] Insulin Glarg,Human.Rec.Analog [Lantus] 30 units SQ BID 11/08/18 [History] Levofloxacin [Levaquin] 750 mg PO DAILY #30 tablet 12/05/18 [Rx] amLODIPine [Norvasc] 5 mg PO BEDTIME #30 tab 12/05/18 [Rx] Referrals: Margaret Omer DPM [Ordering Only Provider] - (See Dr. Omer on WednesdayDecember 07 at 2:15) - Discharge Summary/Plan Comment DC Time >30 min.: No - General Info Date of Service: 12/05/18 Admission Dx/Problem (Free Text: Diabetic Foot Ulcer Functional Status: Reports: Pain Controlled, Tolerating Diet. Denies: Ambulating - Review of Systems General: Reports: Weakness, Fatigue, Malaise. Denies: Fever HEENT: Reports: No Symptoms Pulmonary: Denies: Shortness of Breath, Cough Cardiovascular: Denies: Chest Pain, Edema, Lightheadedness Gastrointestinal: Reports: No Symptoms Genitourinary: Reports: No Symptoms Musculoskeletal: Reports: Foot Pain Skin: Reports: Other Neurological: Reports: No Symptoms - Patient Data Vitals - Most Recent: Last Vital Signs Temp 97.4 F 12/05/18 08:00 Pulse 91 12/05/18 08:00 Resp 18 12/05/18 08:00 BP 149/92 H 12/05/18 08:00 Pulse Ox 92 L 12/05/18 08:00 Weight - Most Recent: 159 lb 13.362 oz Lab Results - Last 24 hrs: Laboratory Results - last 24 hr 12/04/18 12/04/18 12/05/18 Range/Units 17:23 20:48 05:11 WBC (5.0-10.0) 10^3/uL RBC (4.50-6.00) 10^6/uL Hgb (14.0-18.0) g/dL Hct (40.0-54.0) % MCV (82.0-94.0) fL MCH (27.0-32.0) pg MCHC (33.0-38.0) g/dL RDW Coeff of Ludmila (11.0-15.0) % Plt Count (150-400) 10^3/uL Neut % (Auto) (35-85) % Lymph % (Auto) (10-55) % [place] % (Auto) (0-16) % Eos % (Auto) (0-5) % Baso % (Auto) (0-3) % Neut # (Auto) (1.80-7.00) 10^3/uL Lymph # (Auto) (1.00-4.80) 10^3/uL [place] # (Auto) (0.00-0.80) 10^3/uL Eos # (Auto) (0.00-0.45) 10^3/uL Baso # (Auto) 10^3/uL Sodium 138 (136-145) mEq/L Potassium 4.1 (3.5-5.0) mEq/L Chloride 101 (98-106) mEq/L Carbon Dioxide 31 (21-32) mmol/L BUN 17 (7-18) mg/dL Creatinine 0.7 (0.7-1.3) mg/dL Est Cr Clr Drug Dosing 140.97 mL/min Estimated GFR (MDRD) > 60 (>=60) mL/min Glucose 184 H D (75-99) mg/dL POC Glucose 206 H 245 H (75-105) mg/dl Calcium 9.1 (8.4-10.1) mg/dL C-Reactive Protein 0.9 H (0.2-0.8) mg/dL 12/05/18 12/05/18 Range/Units 07:00 07:31 WBC 8.3 (5.0-10.0) 10^3/uL RBC 3.98 L (4.50-6.00) 10^6/uL Hgb 11.7 L (14.0-18.0) g/dL Hct 35.4 L (40.0-54.0) % MCV 88.9 (82.0-94.0) fL MCH 29.4 (27.0-32.0) pg MCHC 33.1 (33.0-38.0) g/dL RDW Coeff of Ludmila 13.8 (11.0-15.0) % Plt Count 583 H (150-400) 10^3/uL Neut % (Auto) 60.9 (35-85) % Lymph % (Auto) 28.1 (10-55) % [place] % (Auto) 7.9 (0-16) % Eos % (Auto) 2.5 (0-5) % Baso % (Auto) 0.6 (0-3) % Neut # (Auto) 5.03 (1.80-7.00) 10^3/uL Lymph # (Auto) 2.32 (1.00-4.80) 10^3/uL [place] # (Auto) 0.65 (0.00-0.80) 10^3/uL Eos # (Auto) 0.21 (0.00-0.45) 10^3/uL Baso # (Auto) 0.05 10^3/uL Sodium (136-145) mEq/L Potassium (3.5-5.0) mEq/L Chloride (98-106) mEq/L Carbon Dioxide (21-32) mmol/L BUN (7-18) mg/dL Creatinine (0.7-1.3) mg/dL Est Cr Clr Drug Dosing mL/min Estimated GFR (MDRD) (>=60) mL/min Glucose (75-99) mg/dL POC Glucose 202 H (75-105) mg/dl Calcium (8.4-10.1) mg/dL C-Reactive Protein (0.2-0.8) mg/dL Med Orders - Current: Current Medications Discontinued Medications Amlodipine Besylate (Norvasc) 5 mg PO BEDTIME [facility] Last Admin: 12/04/18 20:51 Dose: 5 mg Enoxaparin Sodium (Lovenox) 40 mg SUBCUT Q24H [facility] Last Admin: 12/04/18 16:31 Dose: 40 mg Gabapentin (Neurontin) 300 mg PO TID [facility] Last Admin: 12/05/18 07:34 Dose: 300 mg Levofloxacin/Dextrose 750 mg/ (Premix) 150 mls @ 100 mls/hr IV DAILY [facility] Last Admin: 12/05/18 07:40 Dose: 100 mls/hr Insulin Glargine (Lantus Solostar) 30 units SUBCUT BID [facility] Last Admin: 12/05/18 07:35 Dose: 30 units Insulin Human Lispro (Humalog) 0 unit SUBCUT BIDAC [facility]; Protocol Insulin Human Lispro (Humalog) 0 unit SUBCUT QID [facility]; Protocol Last Admin: 11/30/18 16:55 Dose: Not Given Insulin Human Lispro (Humalog) 0 unit SUBCUT WITHMEALSANDBED [facility]; Protocol Last Admin: 12/05/18 07:36 Dose: 6 units Lisinopril (Prinivil) 20 mg PO DAILY [facility] Last Admin: 12/05/18 07:33 Dose: 20 mg Metformin HCl (Glucophage) 1,000 mg PO BID [facility] Last Admin: 12/05/18 07:34 Dose: 1,000 mg Ondansetron HCl (Zofran Odt) 8 mg PO Q6H PRN PRN Reason: nausea, able to take PO Oxycodone/Acetaminophen (Percocet 325-5 Mg) 1 tab PO Q4H PRN PRN Reason: Pain (moderate 4-6) Last Admin: 12/05/18 07:55 Dose: 1 tab Pantoprazole Sodium (Protonix Iv) 40 mg IVPUSH DAILY [facility] Last Admin: 12/05/18 07:34 Dose: 40 mg Sodium Chloride (Saline Flush) 10 ml FLUSH ASDIRECTED PRN PRN Reason: Keep Vein Open Zolpidem Tartrate (Ambien) 5 mg PO BEDTIME PRN PRN Reason: Sleep - Exam General: Reports: Alert HEENT: Reports: Mucous Membr. Moist/[place] Neck: Reports: Supple Lungs: Reports: Clear to Auscultation, Normal Respiratory Effort Cardiovascular: Reports: Regular Rate, Regular Rhythm GI/Abdominal Exam: Normal Bowel Sounds, Soft, Non-Tender Extremities: Joint Swelling, Increased Warmth, Other (open wound to right 3rd digit, deformity noted. Redness and swelling. Foul odor noted ) Wound/Incisions: Reports: Drainage, Erythema
== END 2018-12-05 09:48 | disposition home or self-care (01) | DRG 344 ==
LOC: UNDOADMIN 08:48 → CC.MS 08:48
PROVIDERS: ADMIT Family Medicine; ATTEND Family Medicine
DX: E11.69 Type 2 diabetes mellitus with other specified complication (principal); E11.621 Type 2 diabetes mellitus with foot ulcer; E11.65 Type 2 diabetes mellitus with hyperglycemia; E11.40 Type 2 diabetes mellitus with diabetic neuropathy, unspecified; M86.8X7 Other osteomyelitis, ankle and foot; L97.511 Non-pressure chronic ulcer of other part of right foot limited to breakdown of skin; F41.9 Anxiety disorder, unspecified; G89.29 Other chronic pain; M54.5 Low back pain; F17.210 Nicotine dependence, cigarettes, uncomplicated; Z91.19 Patient's noncompliance with other medical treatment and regimen; Z79.899 Other long term (current) drug therapy; Z79.84 Long term (current) use of oral hypoglycemic drugs
CPT/HCPCS: 36415; 78315; 80048; 82962; 85025; 86140; 97161-GP; 97597-GP; A9270-GY; A9503; C9113; J1650; J1815; J1815-GY; J1956

== ENCOUNTER 2019-10-10 15:40 | Emergency (ER) | payer MEDICAID ==
[2019-10-10] MEDS ORDERED: Clindamycin HCl 150 MG Cap PO ONE (15:41)
[2019-10-10 16:08] VITALS: BP 142/83; PULSE 111
--- NOTE | 2019-10-10 16:35 | EDM.PDOC ---
ED HPI GENERAL MEDICAL PROBLEM - General Chief Complaint: Lower Extremity Injury/Pain Stated Complaint: foot problem Time Seen by Provider: 10/10/19 16:10 Source of Information: Reports: Patient History Limitations: Reports: No Limitations - History of Present Illness INITIAL COMMENTS - FREE TEXT/NARRATIVE: Arvin is a 44 yo male who presents to the ED with concerns of an infection in his right foot. Has been dealing with an ulceration to the bottom of the right foot. He has a history of uncontrolled Type I diabetes. 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 He states he has been dealing with an ulcer since. He states he last seen the wound clinic in [place] about 5 months ago and they recommended him to see the surgeon but he hasn't been back to them yet. He denies any fevers. States if he doesn't soak it in hydrogen peroxide he will get a foul odor from the foot. He hasn't noticed any significant drainage. States his pain is getting worse and the Tramadol doesn't seem to help. Right Feet Pain Score (Numeric/FACES): 7 - Related Data Allergies Allergy/AdvReac Type Severity Reaction Status Date / Time codeine Allergy Hives Verified 10/10/19 16:27 Home Meds: Home Meds Insulin Aspart [NovoLOG] See Protocol SQ QIDACANDBED 04/01/13 [History] Gabapentin [Neurontin] 300 mg PO TID 12/06/16 [History] metFORMIN [Glucophage] 1,000 mg PO BID 03/25/18 [History] Ibuprofen 600 mg PO TID PRN 05/21/18 [History] Lisinopril 20 mg PO DAILY 06/10/18 [History] Insulin Glarg,Human.Rec.Analog [Lantus] 30 units SQ BID 11/08/18 [History] amLODIPine [Norvasc] 5 mg PO BEDTIME #30 tab 12/05/18 [Rx] Past Medical History Cardiovascular History: Reports: High Cholesterol, Hypertension Respiratory History: Reports: SOB Gastrointestinal History: Reports: None Musculoskeletal History: Reports: Arthritis, Back Pain, Chronic Neurological History: Reports: Neuropathy, Diabetic Psychiatric History: Reports: Anxiety, Depression Endocrine/Metabolic History: Reports: Diabetes, Type I Dermatologic History: Reports: Other (See Below) Other Dermatologic History: diabetic ulcer to posterior right foot - Infectious Disease History Infectious Disease History: Reports: MRSA Other Infectious Disease History: Wound Rt Foot - Past Surgical History Cardiovascular Surgical History: Reports: None Respiratory Surgical History: Reports: None GI Surgical History: Reports: None Endocrine Surgical History: Reports: None Neurological Surgical History: Reports: None Musculoskeletal Surgical History: Reports: None Dermatological Surgical History: Reports: Other (See Below) Social & Family History - Family History Family Medical History: Noncontributory Cardiac: Reports: Hypertension - Tobacco Use Smoking Status *Q: Current Every Day Smoker Years of Tobacco use: 20 Packs/Tins Daily: 1 - Caffeine Use Caffeine Use: Reports: Coffee, Energy Drinks - Recreational Drug Use Recreational Drug Use: Yes Recreational Drug Type: Reports: Marijuana/Hashish Review of Systems - Review of Systems Review Of Systems: See Below Musculoskeletal: Reports: Foot Pain Skin: Reports: Wound (right foot) Neurological: Reports: Numbness, Pre-Existing Deficit, Tingling ED EXAM, GENERAL - Physical Exam Exam: See Below Exam Limited By: No Limitations General Appearance: Alert, No Apparent Distress Skin Exam: Wound/Incision (7cm X 5cm callused area to bottom of right foot. I do not see any sign of drainage. No surround erythema. No warmth. Desquamation noted to webbing between 2nd and 4th toes. No drainage. 1st great toenail appears to be thickened and majority gone. Appears to be onychomycosis. ). No: Ecchymosis, Erythema, Increased Warmth Course - Vital Signs Last Recorded V/S: Last Vital Signs Temp 98.7 F 10/10/19 16:05 Pulse 111 H 10/10/19 16:05 Resp 18 10/10/19 16:05 BP 142/83 H 10/10/19 16:05 Pulse Ox 100 10/10/19 16:05 Departure - Departure Time of Disposition: 16:38 Disposition: Home, Self-Care 01 Clinical Impression: Diabetic foot ulcer Qualifiers: Diabetic foot ulcer location: toe Diabetes mellitus type: type 2 Laterality: right Non-pressure ulcer stage: limited to breakdown of skin Qualified Code(s): E11.621 - Type 2 diabetes mellitus with foot ulcer - Discharge Information Referrals: PCP,Unobtain [Primary Care Provider] - Forms: ED Department Discharge Additional Instructions: 1) Need to follow up with primary provider for referral to wound care 2) Continue to use current home treatments, soaking, etc.. 3) Advise following up with primary for diabetic check as well. 4) Clindamycin 300mg four times a day for 10 days. Take home pack are 150mg tablets and need to take 2 at a time. Prescription for the rest is sent to [facility]. 5) If any concerns, return for reevaluation. 6) May continue to use current prescription of Tramadol for pain. Recommend alternating with Tylenol. Sepsis Event Note (ED) - Evaluation Sepsis Screening Result: No Definite Risk - Focused Exam Vital Signs: Vital Signs Temp Pulse Resp BP Pulse Ox 10/10/19 16:05 98.7 F 111 H 18 142/83 H 100 - Problem List & Annotations (1) Diabetic foot ulcer SNOMED Code(s): 595381708 Code(s): E11.621 - TYPE 2 DIABETES MELLITUS WITH FOOT ULCER; L97.509 - NON- PRESSURE CHRONIC ULCER OTH PRT UNSP FOOT W UNSP SEVERITY Status: Acute Priority: High Current Visit: Yes Qualifiers: Diabetic foot ulcer location: toe Diabetes mellitus type: type 2 Laterality: right Non-pressure ulcer stage: limited to breakdown of skin Qualified Code(s): E11.621 - Type 2 diabetes mellitus with foot ulcer; L97.511 - Non-pressure chronic ulcer of other part of right foot limited to breakdown of skin - Assessment/Plan Plan: I do not see any acute physical findings. D/t patient's concern of infection, will treat today until he can follow up with podiatry or wound clinic. I strongly encouraged him to see his primary for diabetic check as well. Please see additional instructions.
[2019-10-10] MEDS ORDERED: Take Home: Clindamycin HCl 150 MG Cap, 6 Cap Pack PO ONE (16:40)
== END 2019-10-10 17:19 | disposition home or self-care (01) ==
LOC: CC.ED 15:40
DX: E10.621 Type 1 diabetes mellitus with foot ulcer (principal); L97.511 Non-pressure chronic ulcer of other part of right foot limited to breakdown of skin; I10 Essential (primary) hypertension; M19.90 Unspecified osteoarthritis, unspecified site; E10.40 Type 1 diabetes mellitus with diabetic neuropathy, unspecified; F17.210 Nicotine dependence, cigarettes, uncomplicated; Z88.5 Allergy status to narcotic agent; Z79.899 Other long term (current) drug therapy; Z79.84 Long term (current) use of oral hypoglycemic drugs
CPT/HCPCS: 99282; A9270-GY

== ENCOUNTER 2019-11-06 09:08 | Emergency (ER) | payer MEDICAID ==
[2019-11-06] MEDS ORDERED: cefTRIAXone 1 GM Vial IM ONE (10:08)
--- NOTE | 2019-11-06 10:16 | EDM.PDOC ---
ED HPI GENERAL MEDICAL PROBLEM - General Chief Complaint: General Stated Complaint: INFECTION LT FT Time Seen by Provider: 11/06/19 09:10 Source of Information: Reports: Patient History Limitations: Reports: No Limitations - History of Present Illness INITIAL COMMENTS - FREE TEXT/NARRATIVE: Patient presents to ER with concerns of infection now in his left foot. He states he noted a sore open on his left lateral foot near his 5th digit and it "has gotten out of control now". Now his foot is all swollen and red, has blisters on the bottom of his feet and "his pain is much worse". Patient has felt febrile. He states he was on Clindamycin for his right foot and did take the medicine as directed, was seen in the ER here on October 09 after he lost the toenail off his right great toe. he states his right foot is better but still has drainage from the wounds in his foot. Admits to not going barefoot much but does question if he stepped on something in the home or that due to having pets, may have animal feces that infected his foot. Onset: Gradual Duration: Day(s):, Getting Worse Location: Reports: Lower Extremity, Left Quality: Reports: Throbbing Severity: Severe Improves with: Reports: None Associated Symptoms: Reports: Fever/Chills. Denies: Loss of Appetite, Nausea/Vomiting, Shortness of Breath, Weakness Left Foot Pain Score (Numeric/FACES): 7 - Related Data Allergies Allergy/AdvReac Type Severity Reaction Status Date / Time codeine Allergy Hives Verified 11/06/19 09:24 Home Meds: Home Meds Insulin Aspart [NovoLOG] See Protocol SQ QIDACANDBED 04/01/13 [History] Gabapentin [Neurontin] 300 mg PO TID 12/06/16 [History] metFORMIN [Glucophage] 1,000 mg PO BID 03/25/18 [History] Ibuprofen 600 mg PO ASDIRECTED PRN 05/21/18 [History] Lisinopril 20 mg PO DAILY 06/10/18 [History] Insulin Glarg,Human.Rec.Analog [Lantus] 30 units SQ BID 11/08/18 [History] amLODIPine [Norvasc] 5 mg PO BEDTIME #30 tab 12/05/18 [Rx] Acetaminophen [Tylenol] 975 mg PO Q4H 11/06/19 [History] traMADol [Ultram] 50 mg PO ASDIRECTED PRN 11/06/19 [History] Past Medical History Cardiovascular History: Reports: High Cholesterol, Hypertension Respiratory History: Reports: SOB Gastrointestinal History: Reports: None Musculoskeletal History: Reports: Arthritis, Back Pain, Chronic Neurological History: Reports: Neuropathy, Diabetic Psychiatric History: Reports: Anxiety, Depression Endocrine/Metabolic History: Reports: Diabetes, Type I Dermatologic History: Reports: Other (See Below) Other Dermatologic History: diabetic ulcer to posterior right foot - Infectious Disease History Infectious Disease History: Reports: MRSA Other Infectious Disease History: Wound Rt Foot - Past Surgical History Cardiovascular Surgical History: Reports: None Respiratory Surgical History: Reports: None GI Surgical History: Reports: None Endocrine Surgical History: Reports: None Neurological Surgical History: Reports: None Musculoskeletal Surgical History: Reports: None Dermatological Surgical History: Reports: Other (See Below) Social & Family History - Family History Family Medical History: Noncontributory Cardiac: Reports: Hypertension - Tobacco Use Smoking Status *Q: Current Every Day Smoker Years of Tobacco use: 15 Packs/Tins Daily: 0.5 - Caffeine Use Caffeine Use: Reports: Coffee, Energy Drinks, Soda, Tea - Recreational Drug Use Recreational Drug Use: No ED ROS GENERAL - Review of Systems Review Of Systems: See Below Constitutional: Reports: Fever, Chills, Malaise, Fatigue. Denies: Weakness HEENT: Reports: No Symptoms Respiratory: Denies: Shortness of Breath, Cough Cardiovascular: Denies: Chest Pain, Edema, Lightheadedness Endocrine: Reports: Fatigue GI/Abdominal: Denies: Abdominal Pain, Constipation, Diarrhea, Nausea, Vomiting : Reports: No Symptoms Musculoskeletal: Reports: Leg Pain Skin: Reports: Erythema (redness to leg/foot), Wound Neurological: Reports: Other (neuropathy in legs) Psychiatric: Reports: No Symptoms ED EXAM, GENERAL - Physical Exam Exam: See Below Exam Limited By: No Limitations General Appearance: Alert, WD/WN, No Apparent Distress Ears: Normal External Exam, Normal TMs Nose: Normal Inspection, Normal Mucosa, No Blood Throat/Mouth: Normal Inspection, Normal Oropharynx Head: Normocephalic Neck: Normal Inspection, Supple, Non-Tender Respiratory/Chest: No Respiratory Distress, Lungs Clear, Normal Breath Sounds Cardiovascular: Regular Rate, Rhythm GI/Abdominal: Normal Bowel Sounds, Soft, Non-Tender Extremities: Other (right foot remains callused, open with bloody drainage dried on to the bottom of his foot. Left foot is swollen, red and warm. Has 2 open diabetic ulcers to left lateral foot near the base of his 5th digit. Large callus to bottom of left foot. has blisters intact to bottom of foot at the base of all of his toes, open between the toes. Redness does streak up the left lopez. ) Course - Vital Signs Last Recorded V/S: Last Vital Signs Temp 99 F 11/06/19 11:13 Pulse 114 H 11/06/19 11:13 Resp 18 11/06/19 11:13 BP 150/86 H 11/06/19 11:13 Pulse Ox 100 11/06/19 11:13 - Orders/Labs/Meds Orders: Active Orders 24 hr Category Date Time Status CULTURE BLOOD [BC] Stat Lab 11/06/19 09:35 Received CULTURE BLOOD [BC] Stat Lab 11/06/19 09:40 Received Blood Culture x2 Reflex Set [OM.PC] Stat Oth 11/06/19 09:23 Ordered Labs: Laboratory Tests 11/06/19 11/06/19 11/06/19 Range/Units 09:35 09:35 09:35 WBC 22.5 H* (5.0-10.0) 10^3/uL RBC 3.42 L (4.50-6.00) 10^6/uL Hgb 10.0 L (14.0-18.0) g/dL Hct 30.4 L (40.0-54.0) % MCV 88.9 (82.0-94.0) fL MCH 29.2 (27.0-32.0) pg MCHC 32.9 L (33.0-38.0) g/dL RDW Coeff of Ludmila 13.1 (11.0-15.0) % Plt Count 513 H (150-400) 10^3/uL Add Manual Diff Yes Neutrophils % (Manual) 77 (35-85) % Band Neutrophils % 14 H (0-5) % Lymphocytes % (Manual) 4 L (21-55) % Monocytes % (Manual) 5 (2-12) % Absolute Neutrophils 20.48 H (1.80-7.00) 10^3/uL Lymphocytes # (Manual) 0.90 L (1.00-4.80) 10^3/uL Monocytes # (Manual) 1.13 H (0.00-0.80) 10^3/uL Sodium 123 L* (136-145) mEq/L Potassium 4.5 (3.5-5.0) mEq/L Chloride 88 L (98-106) mEq/L Carbon Dioxide 19 L (21-32) mmol/L BUN 23 H (7-18) mg/dL Creatinine 1.4 H (0.7-1.3) mg/dL Est Cr Clr Drug Dosing 67.66 mL/min Estimated GFR (MDRD) 55 L (>=60) mL/min Glucose 685 H* (75-99) mg/dL Lactic Acid 1.6 (0.4-2.0) mmol/L Calcium 8.5 (8.4-10.1) mg/dL Total Bilirubin 0.5 (0.0-1.0) mg/dL AST 15 (15-37) U/L ALT 14 (12-78) U/L Alkaline Phosphatase 227 H (46-116) U/L C-Reactive Protein 37.0 H (0.2-0.8) mg/dL Total Protein 7.1 (6.4-8.2) g/dL Albumin 1.8 L (3.4-5.0) g/dL Meds: Medications Discontinued Medications Generic Name Dose Route Start Last Admin Trade Name Dwayne PRN Reason Stop Dose Admin Hydrocodone Bitart/Acetaminophen 1 tab 11/06/19 11:05 11/06/19 11:11 [place] 325-5 Mg PO 11/06/19 11:06 1 tab ONETIME ONE Administration Ceftriaxone Sodium 1 gm 11/06/19 10:08 11/06/19 10:28 Rocephin IM 11/06/19 10:09 1 gm ONETIME ONE Administration Sodium Chloride 1,000 mls @ 150 mls/hr 11/06/19 11:00 11/06/19 11:14 Normal Saline IV 150 mls/hr ASDIRECTED SAMMI Administration Lidocaine HCl 2.1 ml 11/06/19 10:17 11/06/19 10:22 Xylocaine-Mpf 1% INJECT 11/06/19 10:18 Not Given ONETIME ONE Lidocaine HCl 2.1 ml 11/06/19 10:23 11/06/19 10:28 Xylocaine 1% INJECT 11/06/19 10:24 2.1 ml ONETIME ONE Administration - Re-Assessments/Exams Free Text/Narrative Re-Assessment/Exam: 11/06/19 11:09 Patient's labs noted. WBC is high at 22.5. CRP is 37. Blood sugar high at 638. Sodium low at 123. Rocephin one gram given. Normal saline started. 1100- Did contact [facility] and spoke with Dr. Ralph in regards to patient status. Does agree to accept the patient in transfer. BLS arranged. Risks and benefits of transfer discussed with patient. Risks of transfer include worsening status, vehicle crash or . Benefits of transfer include more specialized wound care, ability to obtain MRI. Risks of non transfer include worsening status and possible . Benefits of non transfer include care close to home. Patient agrees to transfer. Departure - Departure Time of Disposition: 11:14 Disposition: DC/Tfer to [facility] Condition: Fair Clinical Impression: Diabetic foot infection Cellulitis Qualifiers: Site of cellulitis: extremity Site of cellulitis of extremity: lower extremity Laterality: left Qualified Code(s): L03.116 - Cellulitis of left lower limb - Discharge Information *PRESCRIPTION DRUG MONITORING PROGRAM REVIEWED*: No *COPY OF PRESCRIPTION DRUG MONITORING REPORT IN PATIENT NEELAM: No Referrals: Santo Shirley MD [Primary Care Provider] - Forms: ED Department Discharge Additional Instructions: Transfer to Mode per S. Accepting physician Dr. Ralph. Sepsis Event Note (ED) - Evaluation Sepsis Screening Result: No Definite Risk - Focused Exam Vital Signs: Vital Signs Temp Pulse Resp BP Pulse Ox 11/06/19 11:13 99 F 114 H 18 150/86 H 100 11/06/19 09:16 98.8 F 121 H 18 100 - My Orders Last 24 Hours: My Active Orders 11/06/19 09:23 Blood Culture x2 Reflex Set [OM.PC] Stat 11/06/19 09:35 CULTURE BLOOD [BC] Stat 11/06/19 09:40 CULTURE BLOOD [BC] Stat - Assessment/Plan Last 24 Hours: My Active Orders 11/06/19 09:23 Blood Culture x2 Reflex Set [OM.PC] Stat 11/06/19 09:35 CULTURE BLOOD [BC] Stat 11/06/19 09:40 CULTURE BLOOD [BC] Stat
[2019-11-06] MEDS ORDERED: Lidocaine 1% 20 ML MDV INJECT ONE (10:23)
[2019-11-06] MEDS ORDERED: Sodium Chloride 0.9% 1,000 ML IV SCH (11:00)
[2019-11-06] MEDS ORDERED: Acetaminophen/HYDROcodone 325-5 MG Tab PO ONE (11:05)
[2019-11-06 11:55] VITALS: BP 150/86; PULSE 114
== END 2019-11-06 11:49 ==
LOC: CC.ED 09:08 → SUPCPDRO 09:08 → CC.ED 11:49
DX: E10.621 Type 1 diabetes mellitus with foot ulcer (principal); L97.529 Non-pressure chronic ulcer of other part of left foot with unspecified severity; L03.116 Cellulitis of left lower limb; I10 Essential (primary) hypertension; F17.210 Nicotine dependence, cigarettes, uncomplicated; Z88.5 Allergy status to narcotic agent; Z79.84 Long term (current) use of oral hypoglycemic drugs; Z79.899 Other long term (current) drug therapy
CPT/HCPCS: 36415; 80053; 83605; 85025; 86140; 87040; 96372; 99284; A9270-GY; J0696; J2001; J7030

== ENCOUNTER 2024-06-15 23:59 | Observation (INO) | payer MEDICARE ==
[2024-06-16 00:36] LABS: BASOPHILS ABSOLUTE AUTO 0.05 10^3/uL (0.00-0.50); BASOPHILS PERCENT AUTO 0.9 % (0-1); EOSINOPHILS ABSOLUTE AUTO 0.17 10^3/uL (0.00-1.50); EOSINOPHILS PERCENT AUTO 3.1 % (0-6); HEMATOCRIT 36.2 % (42.0-52.0); HEMOGLOBIN 12.1 g/dL (14.0-18.0); IMMATURE GRAN ABSOLUTE AUTO 0.01 10^3/uL (0.00-0.49); IMMATURE GRAN PERCENT AUTO 0.2 % (0.0-4.9); LYMPHOCYTES ABSOLUTE AUTO 1.13 10^3/uL (0.60-5.00); LYMPHOCYTES PERCENT AUTO 20.9 % (24-44); MEAN CORPUSCULAR HEMOGLOBIN 29.2 pg (27.0-32.0); MEAN CORPUSCULAR HGB CONC 33.4 g/dL (32.0-36.0); MEAN CORPUSCULAR VOLUME 87.4 fL (83.0-97.0); MONOCYTES ABSOLUTE AUTO 0.39 10^3/uL (0.00-1.50); MONOCYTES PERCENT AUTO 7.2 % (0-10); NEUTROPHILS ABSOLUTE AUTO 3.65 x10^3/uL (1.80-8.00); NEUTROPHILS PERCENT AUTO 67.7 % (41-71); PLATELET COUNT,PLT 297 10^3/uL (150-400); RED BLOOD CELL COUNT 4.14 x10^6/uL (4.50-6.00); WHITE BLOOD CELL COUNT,WBC 5.4 10^3/uL (4.0-11.0)
[2024-06-16 00:41] LABS: APPEARANCE,URINE CLEAR (CLEAR); BILIRUBIN,URINE NEGATIVE (NEGATIVE); COLOR,URINE YELLOW (YELLOW); GLUCOSE,URINE 500 mg/dL (NEGATIVE); KETONES,URINE NEGATIVE (NEGATIVE); LEUKOCYTE ESTERASE,URINE NEGATIVE (NEGATIVE); NITRITE,URINE NEGATIVE (NEGATIVE); OCCULT BLOOD,URINE SMALL (NEGATIVE); PROTEIN,URINE >=300 mg/dL (NEGATIVE); UROBILINOGEN,URINE 0.2 EU/dL (0.2-1.0)
[2024-06-16] MEDS: Ondansetron 4 MG/2 ML SDV IVPUSH STA (00:44)
[2024-06-16] MEDS: Sodium Chloride 0.9% 1,000 ML IV ONE (00:44)
[2024-06-16 00:52] LABS: BACTERIA,URINE NOT SEEN /HPF (NOT SEEN); RBC,URINE 0-5 /HPF (0-5); SQUAMOUS EPITHELIAL CELLS,UR NOT SEEN /HPF (NOT SEEN); WBC,URINE NOT SEEN /HPF (0-5)
[2024-06-16 00:53] LABS: AMPHETAMINES,URINE NEGATIVE (NEGATIVE); BARBITURATES,URINE NEGATIVE (NEGATIVE); BENZODIAZEPINE,URINE NEGATIVE (NEGATIVE); MDMA (ECSTASY), URINE NEGATIVE (NEGATIVE); METHADONE,URINE NEGATIVE (NEGATIVE); METHAMPHETAMINES,URINE NEGATIVE (NEGATIVE); OPIATES,URINE NEGATIVE (NEGATIVE); OXYCODONE,URINE NEGATIVE (NEGATIVE); PHENCYCLIDINE,URINE NEGATIVE (NEGATIVE); TCA,URINE NEGATIVE (NEGATIVE)
[2024-06-16 00:55] LABS: ALBUMIN 2.3 g/dL (3.4-5.0); BILIRUBIN TOTAL 0.2 mg/dL (0.0-1.0); CALCIUM 8.4 mg/dL (8.4-10.1); EST CRCL DRUG DOSING (CG) 44.92 mL/min; MAGNESIUM 1.8 mg/dL (1.8-2.4); POTASSIUM,K 4.5 mEq/L (3.5-5.0); PROTEIN TOTAL,TP 6.2 g/dL (6.4-8.2)
[2024-06-16 01:14] LABS: CORONAVIRUS COVID-19 NAA NEGATIVE (NEGATIVE); INFLUENZA A NAA NEGATIVE (NEGATIVE); INFLUENZA B NAA NEGATIVE (NEGATIVE)
[2024-06-16] MEDS ORDERED: Glucagon,Human Recombinant 1 MG Vial IM PRN (01:37)
[2024-06-16] MEDS ORDERED: Ondansetron 4 MG/2 ML SDV IV PRN (01:37)
[2024-06-16] MEDS ORDERED: Promethazine 25 MG Tab PO PRN (01:37)
[2024-06-16] MEDS ORDERED: Docusate Sodium 100 MG Cap PO PRN (01:37)
[2024-06-16] MEDS ORDERED: Polyethylene Glycol 3350 Powder 17 GM Packet PO PRN (01:37)
[2024-06-16] MEDS ORDERED: 50% Dextrose in Water 50 ML Syringe IVPUSH PRN (01:37)
[2024-06-16] MEDS ORDERED: Acetaminophen 325 MG Tab PO PRN (01:37)
[2024-06-16] MEDS: cefTRIAXone 1 GM Vial IVPUSH SCH (02:10)
[2024-06-16] MEDS: Sodium Chloride 0.9% 1,000 ML IV SCH (02:15)
[2024-06-16] MEDS: hydrALAZINE 20 MG/ML SDV IVPUSH PRN (02:15)
[2024-06-16] MEDS: Acetaminophen/HYDROcodone 325-5 MG Tab PO PRN (02:15)
[2024-06-16] MEDS: Insulin Glarg,Human.Rec.Analog 100 Unit/ML 10 ML Vial SUBCUT SCH ×2 (02:35→08:16)
[2024-06-16] MEDS: amLODIPine 10 MG Tab PO SCH (07:35)
[2024-06-16] MEDS: Pregabalin 25 MG Cap PO SCH (07:35)
[2024-06-16 07:44] LABS: BASOPHILS ABSOLUTE AUTO 0.04 10^3/uL (0.00-0.50); BASOPHILS PERCENT AUTO 0.7 % (0-1); EOSINOPHILS ABSOLUTE AUTO 0.17 10^3/uL (0.00-1.50); EOSINOPHILS PERCENT AUTO 2.9 % (0-6); HEMATOCRIT 35.2 % (42.0-52.0); HEMOGLOBIN 11.6 g/dL (14.0-18.0); IMMATURE GRAN ABSOLUTE AUTO 0.01 10^3/uL (0.00-0.49); IMMATURE GRAN PERCENT AUTO 0.2 % (0.0-4.9); LYMPHOCYTES ABSOLUTE AUTO 1.74 10^3/uL (0.60-5.00); LYMPHOCYTES PERCENT AUTO 30.1 % (24-44); MEAN CORPUSCULAR HEMOGLOBIN 28.9 pg (27.0-32.0); MEAN CORPUSCULAR VOLUME 87.6 fL (83.0-97.0); MONOCYTES ABSOLUTE AUTO 0.57 10^3/uL (0.00-1.50); MONOCYTES PERCENT AUTO 9.9 % (0-10); NEUTROPHILS ABSOLUTE AUTO 3.25 x10^3/uL (1.80-8.00); NEUTROPHILS PERCENT AUTO 56.2 % (41-71); PLATELET COUNT,PLT 314 10^3/uL (150-400); RED BLOOD CELL COUNT 4.02 x10^6/uL (4.50-6.00); WHITE BLOOD CELL COUNT,WBC 5.8 10^3/uL (4.0-11.0)
[2024-06-16 07:58] LABS: CALCIUM 7.9 mg/dL (8.4-10.1); CREATININE 1.8 mg/dL (0.7-1.3); EST CRCL DRUG DOSING (CG) 49.91 mL/min; MAGNESIUM 1.7 mg/dL (1.8-2.4); POTASSIUM,K 4.8 mEq/L (3.5-5.0)
[2024-06-16] MEDS: Insulin Lispro 100 Units/ML 3 ML Vial SUBCUT SCH (08:17)
[2024-06-16] MEDS ORDERED: Cyclobenzaprine 10 MG Tab PO PRN (13:21)
[2024-06-16] MEDS: Doxazosin 2 MG Tab PO ONE (14:15)
[2024-06-16] MEDS: FLUoxetine 20 MG Cap PO ONE (14:16)
[2024-06-16] MEDS: Losartan 100 MG Tab PO ONE (14:16)
[2024-06-16] MEDS: Hydrochlorothiazide 25 MG Tab PO ONE (14:16)
[2024-06-16] MEDS: buPROPion 150 MG Tab.ER PO ONE (14:17)
[2024-06-16] MEDS: Carvedilol 6.25 MG Tab PO SCH (17:12)
[2024-06-16] MEDS: Ondansetron 4 MG Tab.DIS PO PRN (19:00)
[2024-06-16] MEDS: Rosuvastatin 10 MG Tab PO SCH (19:24)
[2024-06-16] MEDS: Pantoprazole 40 MG Tab.CR PO SCH (19:24)
[2024-06-17 07:24] LABS: CALCIUM 7.5 mg/dL (8.4-10.1); EST CRCL DRUG DOSING (CG) 44.92 mL/min; MAGNESIUM 1.7 mg/dL (1.8-2.4); POTASSIUM,K 4.8 mEq/L (3.5-5.0)
[2024-06-17 07:56] LABS: BASOPHILS ABSOLUTE AUTO 0.06 10^3/uL (0.00-0.50); BASOPHILS PERCENT AUTO 1.1 % (0-1); EOSINOPHILS ABSOLUTE AUTO 0.15 10^3/uL (0.00-1.50); EOSINOPHILS PERCENT AUTO 2.8 % (0-6); HEMATOCRIT 30.4 % (42.0-52.0); IMMATURE GRAN ABSOLUTE AUTO 0.01 10^3/uL (0.00-0.49); IMMATURE GRAN PERCENT AUTO 0.2 % (0.0-4.9); LYMPHOCYTES ABSOLUTE AUTO 1.14 10^3/uL (0.60-5.00); LYMPHOCYTES PERCENT AUTO 21.6 % (24-44); MEAN CORPUSCULAR HEMOGLOBIN 29.3 pg (27.0-32.0); MEAN CORPUSCULAR HGB CONC 32.9 g/dL (32.0-36.0); MEAN CORPUSCULAR VOLUME 89.1 fL (83.0-97.0); MONOCYTES ABSOLUTE AUTO 0.38 10^3/uL (0.00-1.50); MONOCYTES PERCENT AUTO 7.2 % (0-10); NEUTROPHILS ABSOLUTE AUTO 3.54 x10^3/uL (1.80-8.00); NEUTROPHILS PERCENT AUTO 67.1 % (41-71); PLATELET COUNT,PLT 255 10^3/uL (150-400); RED BLOOD CELL COUNT 3.41 x10^6/uL (4.50-6.00); WHITE BLOOD CELL COUNT,WBC 5.3 10^3/uL (4.0-11.0)
[2024-06-17] MEDS: buPROPion 150 MG Tab.ER PO SCH (08:15)
[2024-06-17] MEDS: Doxazosin 2 MG Tab PO SCH (08:15)
[2024-06-17] MEDS: Hydrochlorothiazide 25 MG Tab PO SCH (08:16)
[2024-06-17] MEDS: Losartan 100 MG Tab PO SCH (08:16)
[2024-06-17] MEDS: FLUoxetine 20 MG Cap PO SCH (08:16)
[2024-06-17 14:02] VITALS: BP 149/82; PULSE 75
== END 2024-06-17 13:05 | disposition home or self-care (01) ==
LOC: CC.ED 23:59 → UNDOADMOB 06-16 01:15 → CC.MS 06-16 01:15
PROVIDERS: ADMIT Nurse Practitioner; ATTEND Nurse Practitioner
DX: N17.9 Acute kidney failure, unspecified (principal); E10.65 Type 1 diabetes mellitus with hyperglycemia; E10.621 Type 1 diabetes mellitus with foot ulcer; L97.521 Non-pressure chronic ulcer of other part of left foot limited to breakdown of skin; E10.22 Type 1 diabetes mellitus with diabetic chronic kidney disease; N18.9 Chronic kidney disease, unspecified
CPT/HCPCS: 0240U; 36415; 74176; 80048; 80053; 80305-QW; 81001; 82800; 82947; 83605; 83735; 85025; 86140; 87040; 96361; 96374; 96375; 96376; 97139-GP; 99285-25; A9270-GY; G0378; J0360; J0696; J1815-GY; J2405; J7030

== ENCOUNTER 2024-06-18 12:28 | Emergency (ER) | payer MEDICARE ==
[2024-06-18] MEDS: Fluorescein 1 MG Ophth Strip EYERT ONE (13:49)
[2024-06-18] MEDS: Erythromycin Base 0.5% Ophth Oint 3.5 GM Tube EYERT ONE (13:49)
[2024-06-18] MEDS: Tetracaine HCl/PF 0.5% 4 ML Bottle EYERT ONE (13:50)
[2024-06-18 14:30] VITALS: BP 181/95; PULSE 88
== END 2024-06-18 14:50 | disposition home or self-care (01) ==
LOC: CC.ED 12:28
DX: S05.01XA Injury of conjunctiva and corneal abrasion without foreign body, right eye, initial encounter (principal); K59.00 Constipation, unspecified; I10 Essential (primary) hypertension; E78.00 Pure hypercholesterolemia, unspecified; E10.42 Type 1 diabetes mellitus with diabetic polyneuropathy; Z79.4 Long term (current) use of insulin; Z79.899 Other long term (current) drug therapy; W54.8XXA Other contact with dog, initial encounter
CPT/HCPCS: 74019; 99284

== ENCOUNTER 2024-06-25 09:58 | Emergency (ER) | payer MEDICARE ==
[2024-06-25 10:11] VITALS: BP 144/97; PULSE 91
[2024-06-25 10:23] LABS: BASOPHILS ABSOLUTE AUTO 0.06 10^3/uL (0.00-0.50); EOSINOPHILS ABSOLUTE AUTO 0.28 10^3/uL (0.00-1.50); EOSINOPHILS PERCENT AUTO 4.8 % (0-6); HEMATOCRIT 31.1 % (42.0-52.0); HEMOGLOBIN 10.1 g/dL (14.0-18.0); IMMATURE GRAN ABSOLUTE AUTO 0.01 10^3/uL (0.00-0.49); IMMATURE GRAN PERCENT AUTO 0.2 % (0.0-4.9); LYMPHOCYTES ABSOLUTE AUTO 1.48 10^3/uL (0.60-5.00); LYMPHOCYTES PERCENT AUTO 25.5 % (24-44); MEAN CORPUSCULAR HEMOGLOBIN 28.9 pg (27.0-32.0); MEAN CORPUSCULAR HGB CONC 32.5 g/dL (32.0-36.0); MEAN CORPUSCULAR VOLUME 88.9 fL (83.0-97.0); MONOCYTES ABSOLUTE AUTO 0.86 10^3/uL (0.00-1.50); MONOCYTES PERCENT AUTO 14.8 % (0-10); NEUTROPHILS ABSOLUTE AUTO 3.12 x10^3/uL (1.80-8.00); NEUTROPHILS PERCENT AUTO 53.7 % (41-71); PLATELET COUNT,PLT 306 10^3/uL (150-400); WHITE BLOOD CELL COUNT,WBC 5.8 10^3/uL (4.0-11.0)
[2024-06-25 10:38] LABS: ALBUMIN 1.9 g/dL (3.4-5.0); BILIRUBIN TOTAL 0.2 mg/dL (0.0-1.0); C-REACTIVE PROTEIN 0.8 mg/dL (<=0.50); CALCIUM 7.8 mg/dL (8.4-10.1); CREATININE 2.3 mg/dL (0.7-1.3); EST CRCL DRUG DOSING (CG) 37.8 mL/min; PROTEIN TOTAL,TP 5.7 g/dL (6.4-8.2)
[2024-06-25] MEDS: Sodium Chloride 0.9% 1,000 ML IV ONE (10:52)
== END 2024-06-25 13:30 | disposition home or self-care (01) ==
LOC: CC.ED 09:58
DX: K59.00 Constipation, unspecified (principal); I10 Essential (primary) hypertension; E10.40 Type 1 diabetes mellitus with diabetic neuropathy, unspecified; E78.00 Pure hypercholesterolemia, unspecified; M19.90 Unspecified osteoarthritis, unspecified site; Z79.899 Other long term (current) drug therapy; Z87.891 Personal history of nicotine dependence; Z79.4 Long term (current) use of insulin
CPT/HCPCS: 36415; 71046; 74018; 80053; 85025; 86140; 96360; 96361; 99284; J7030

== ENCOUNTER 2024-07-06 12:11 | Emergency (ER) | payer MEDICARE ==
[2024-07-06 12:20] VITALS: BP 113/83; PULSE 83
[2024-07-06 13:11] LABS: BASOPHILS ABSOLUTE AUTO 0.08 10^3/uL (0.00-0.50); BASOPHILS PERCENT AUTO 0.9 % (0-1); EOSINOPHILS ABSOLUTE AUTO 0.15 10^3/uL (0.00-1.50); EOSINOPHILS PERCENT AUTO 1.7 % (0-6); HEMATOCRIT 31.7 % (42.0-52.0); HEMOGLOBIN 10.6 g/dL (14.0-18.0); IMMATURE GRAN ABSOLUTE AUTO 0.01 10^3/uL (0.00-0.49); IMMATURE GRAN PERCENT AUTO 0.1 % (0.0-4.9); LYMPHOCYTES ABSOLUTE AUTO 1.38 10^3/uL (0.60-5.00); LYMPHOCYTES PERCENT AUTO 15.4 % (24-44); MEAN CORPUSCULAR HGB CONC 33.4 g/dL (32.0-36.0); MEAN CORPUSCULAR VOLUME 86.6 fL (83.0-97.0); MONOCYTES ABSOLUTE AUTO 0.95 10^3/uL (0.00-1.50); MONOCYTES PERCENT AUTO 10.6 % (0-10); NEUTROPHILS ABSOLUTE AUTO 6.39 x10^3/uL (1.80-8.00); NEUTROPHILS PERCENT AUTO 71.3 % (41-71); PLATELET COUNT,PLT 368 10^3/uL (150-400); RED BLOOD CELL COUNT 3.66 x10^6/uL (4.50-6.00)
[2024-07-06 13:34] LABS: BILIRUBIN TOTAL 0.3 mg/dL (0.0-1.0); C-REACTIVE PROTEIN 3.54 mg/dL (<=0.50); CALCIUM 8.4 mg/dL (8.4-10.1); EST CRCL DRUG DOSING (CG) 33.44 mL/min; MAGNESIUM 1.9 mg/dL (1.8-2.4); POTASSIUM,K 4.4 mEq/L (3.5-5.0); PROTEIN TOTAL,TP 6.2 g/dL (6.4-8.2)
[2024-07-06 13:35] LABS: CREATININE 2.6 mg/dL (0.7-1.3)
[2024-07-06] MEDS: Albuterol/Ipratropium 3.0-0.5 MG/3 ML Neb Soln NEB ONE (13:51)
[2024-07-06] MEDS: Sodium Chloride 0.9% 1,000 ML IV ONE (13:51)
[2024-07-06] MEDS: cefTRIAXone 1 GM Vial IVPUSH ONE (13:51)
== END 2024-07-06 15:11 | disposition home or self-care (01) ==
LOC: CC.ED 12:11
DX: J40 Bronchitis, not specified as acute or chronic (principal); N17.9 Acute kidney failure, unspecified; N18.9 Chronic kidney disease, unspecified; I10 Essential (primary) hypertension; E10.40 Type 1 diabetes mellitus with diabetic neuropathy, unspecified; E78.00 Pure hypercholesterolemia, unspecified; M19.90 Unspecified osteoarthritis, unspecified site; Z79.899 Other long term (current) drug therapy; Z79.4 Long term (current) use of insulin
CPT/HCPCS: 36415; 71046; 80053; 83735; 84484; 85025; 86140; 87428-QW; 93005; 96361; 96374; 99285-25; A9270-GY; J0696; J7030

== ENCOUNTER 2024-07-11 17:38 | Emergency (ER) | payer MEDICARE, MEDICAID ==
[2024-07-11 18:05] VITALS: BP 135/88; PULSE 88
== END 2024-07-11 18:09 | disposition home or self-care (01) ==
LOC: CC.ED 17:38
DX: S93.402A Sprain of unspecified ligament of left ankle, initial encounter (principal); I10 Essential (primary) hypertension; E10.40 Type 1 diabetes mellitus with diabetic neuropathy, unspecified; E78.00 Pure hypercholesterolemia, unspecified; M19.90 Unspecified osteoarthritis, unspecified site; Z79.4 Long term (current) use of insulin; Z79.899 Other long term (current) drug therapy; W19.XXXA Unspecified fall, initial encounter
CPT/HCPCS: 73610-LT; 99283

== ENCOUNTER 2024-07-27 12:41 | Emergency (ER) | payer MEDICARE, MEDICAID ==
[2024-07-27 12:54] VITALS: BP 157/84; PULSE 86
[2024-07-27 13:11] LABS: BASOPHILS PERCENT AUTO 1.2 % (0-1); EOSINOPHILS ABSOLUTE AUTO 0.39 10^3/uL (0.00-1.50); EOSINOPHILS PERCENT AUTO 4.8 % (0-6); HEMATOCRIT 29.2 % (42.0-52.0); HEMOGLOBIN 9.4 g/dL (14.0-18.0); IMMATURE GRAN ABSOLUTE AUTO 0.04 10^3/uL (0.00-0.49); IMMATURE GRAN PERCENT AUTO 0.5 % (0.0-4.9); LYMPHOCYTES ABSOLUTE AUTO 1.78 10^3/uL (0.60-5.00); LYMPHOCYTES PERCENT AUTO 22.1 % (24-44); MEAN CORPUSCULAR HEMOGLOBIN 29.1 pg (27.0-32.0); MEAN CORPUSCULAR HGB CONC 32.2 g/dL (32.0-36.0); MEAN CORPUSCULAR VOLUME 90.4 fL (83.0-97.0); MONOCYTES ABSOLUTE AUTO 0.64 10^3/uL (0.00-1.50); MONOCYTES PERCENT AUTO 7.9 % (0-10); NEUTROPHILS ABSOLUTE AUTO 5.11 x10^3/uL (1.80-8.00); NEUTROPHILS PERCENT AUTO 63.5 % (41-71); PLATELET COUNT,PLT 409 10^3/uL (150-400); RED BLOOD CELL COUNT 3.23 x10^6/uL (4.50-6.00); WHITE BLOOD CELL COUNT,WBC 8.1 10^3/uL (4.0-11.0)
[2024-07-27 13:33] LABS: ALANINE AMINOTRANSFERASE,ALT 24 U/L (12-78); ALBUMIN 2.1 g/dL (3.4-5.0); ALKALINE PHOSPHATASE 195 U/L (46-116); ASPARTATE AMNIOTRANSFERASE,AST 17 U/L (15-37); BILIRUBIN TOTAL 0.2 mg/dL (0.0-1.0); BLOOD UREA NITROGEN,BUN 35 mg/dL (7-18); CALCIUM 7.9 mg/dL (8.4-10.1); CARBON DIOXIDE,CO2 25 mmol/L (21-32); CHLORIDE,CL 107 mEq/L (98-106); EST CRCL DRUG DOSING (CG) 34.55 mL/min; GLUCOSE RANDOM 148 mg/dL (75-99); MAGNESIUM 1.9 mg/dL (1.8-2.4); POTASSIUM,K 4.9 mEq/L (3.5-5.0); SODIUM,NA 140 mEq/L (136-145)
[2024-07-27 13:45] LABS: C-REACTIVE PROTEIN < 0.50 mg/dL (<=0.50); CREATININE 2.6 mg/dL (0.7-1.3); ESTIMATED GFR 30 mL/min (>=60)
== END 2024-07-27 15:54 | disposition home or self-care (01) ==
LOC: CC.ED 12:41
DX: R60.0 Localized edema (principal); I10 Essential (primary) hypertension; E78.00 Pure hypercholesterolemia, unspecified; E10.9 Type 1 diabetes mellitus without complications; Z87.891 Personal history of nicotine dependence; Z79.4 Long term (current) use of insulin; Z79.899 Other long term (current) drug therapy; Z79.51 Long term (current) use of inhaled steroids
CPT/HCPCS: 36415; 80053; 83735; 85025; 85379; 86140; 99283

== ENCOUNTER 2024-08-02 10:54 | Inpatient (IN) | payer MEDICARE, MEDICAID ==
[2024-08-02 11:23] LABS: BASOPHILS ABSOLUTE AUTO 0.11 10^3/uL (0.00-0.50); BASOPHILS PERCENT AUTO 1.7 % (0-1); EOSINOPHILS PERCENT AUTO 6.2 % (0-6); HEMATOCRIT 28.4 % (42.0-52.0); HEMOGLOBIN 9.1 g/dL (14.0-18.0); IMMATURE GRAN ABSOLUTE AUTO 0.01 10^3/uL (0.00-0.49); IMMATURE GRAN PERCENT AUTO 0.2 % (0.0-4.9); LYMPHOCYTES ABSOLUTE AUTO 1.61 10^3/uL (0.60-5.00); LYMPHOCYTES PERCENT AUTO 24.9 % (24-44); MEAN CORPUSCULAR HEMOGLOBIN 29.4 pg (27.0-32.0); MEAN CORPUSCULAR VOLUME 91.6 fL (83.0-97.0); MONOCYTES ABSOLUTE AUTO 0.65 10^3/uL (0.00-1.50); MONOCYTES PERCENT AUTO 10.1 % (0-10); NEUTROPHILS ABSOLUTE AUTO 3.68 x10^3/uL (1.80-8.00); NEUTROPHILS PERCENT AUTO 56.9 % (41-71); PLATELET COUNT,PLT 310 10^3/uL (150-400); WHITE BLOOD CELL COUNT,WBC 6.5 10^3/uL (4.0-11.0)
[2024-08-02] MEDS: VANCOmycin 1.5 GM/300 ML 1.5 GM in Premix Bag 1 BAG IV ONE (11:25)
[2024-08-02 11:33] LABS: ALANINE AMINOTRANSFERASE,ALT 25 U/L (12-78); ALKALINE PHOSPHATASE 194 U/L (46-116); ASPARTATE AMNIOTRANSFERASE,AST 22 U/L (15-37); BILIRUBIN TOTAL 0.2 mg/dL (0.0-1.0); BLOOD UREA NITROGEN,BUN 44 mg/dL (7-18); CALCIUM 7.9 mg/dL (8.4-10.1); CARBON DIOXIDE,CO2 22 mmol/L (21-32); CHLORIDE,CL 110 mEq/L (98-106); EST CRCL DRUG DOSING (CG) 37.81 mL/min; POTASSIUM,K 4.7 mEq/L (3.5-5.0); PROTEIN TOTAL,TP 5.8 g/dL (6.4-8.2); SODIUM,NA 142 mEq/L (136-145)
[2024-08-02 11:36] LABS: CREATININE 2.7 mg/dL (0.7-1.3); ESTIMATED GFR 28 mL/min (>=60); GLUCOSE RANDOM 367 mg/dL (75-99)
[2024-08-02 11:37] LABS: C-REACTIVE PROTEIN < 0.50 mg/dL (<=0.50)
[2024-08-02 11:57] LABS: CORONAVIRUS COVID-19 NAA NEGATIVE (NEGATIVE); INFLUENZA A NAA NEGATIVE (NEGATIVE); INFLUENZA B NAA NEGATIVE (NEGATIVE)
[2024-08-02] MEDS ORDERED: Docusate Sodium 100 MG Cap PO PRN (12:30)
[2024-08-02] MEDS ORDERED: Albuterol/Ipratropium 3.0-0.5 MG/3 ML Neb Soln NEB PRN (12:30)
[2024-08-02] MEDS ORDERED: Ondansetron 4 MG/2 ML SDV IV PRN (12:30)
[2024-08-02] MEDS ORDERED: Ondansetron 4 MG Tab.DIS PO PRN (12:30)
[2024-08-02] MEDS ORDERED: Polyethylene Glycol 3350 Powder 17 GM Packet PO PRN (12:30)
[2024-08-02] MEDS ORDERED: Glucagon,Human Recombinant 1 MG Vial IM PRN ×2 (12:33→12:36)
[2024-08-02] MEDS ORDERED: Albuterol 0.083% 2.5 MG/3 ML Neb Soln INH PRN (12:33)
[2024-08-02] MEDS ORDERED: 50% Dextrose in Water 50 ML Syringe IVPUSH PRN ×2 (12:33→12:36)
[2024-08-02] MEDS: Sodium Chloride 0.9% 1,000 ML IV ONE (12:49)
[2024-08-02] MEDS: Insulin Glarg,Human.Rec.Analog 100 Unit/ML 10 ML Vial SUBCUT SCH ×2 (13:30→19:56)
[2024-08-02] MEDS: Pregabalin 25 MG Cap PO SCH (13:34)
[2024-08-02] MEDS ORDERED: Insulin Lispro 100 Units/ML 3 ML Vial SUBCUT SCH (17:30)
[2024-08-02] MEDS: Pantoprazole 40 MG Tab.CR PO SCH (18:26)
[2024-08-02] MEDS: Carvedilol 6.25 MG Tab PO SCH (19:41)
[2024-08-02] MEDS: Rosuvastatin 10 MG Tab PO SCH (19:42)
[2024-08-02] MEDS: traMADol 50 MG Tab PO PRN (19:52)
[2024-08-02] MEDS ORDERED: LUBIPROSTONE 24 MCG PO SCH (20:00)
[2024-08-03] MEDS: buPROPion 150 MG Tab.ER PO SCH (07:50)
[2024-08-03] MEDS: Losartan 100 MG Tab PO SCH (07:50)
[2024-08-03] MEDS: Doxazosin 2 MG Tab PO SCH (07:51)
[2024-08-03] MEDS: Hydrochlorothiazide 25 MG Tab PO SCH (07:51)
[2024-08-03] MEDS: FLUoxetine 20 MG Cap PO SCH (07:51)
[2024-08-03] MEDS: amLODIPine 10 MG Tab PO SCH (07:52)
[2024-08-03 10:04] LABS: BASOPHILS ABSOLUTE AUTO 0.07 10^3/uL (0.00-0.50); BASOPHILS PERCENT AUTO 1.1 % (0-1); EOSINOPHILS PERCENT AUTO 6.5 % (0-6); HEMATOCRIT 30.2 % (42.0-52.0); HEMOGLOBIN 9.5 g/dL (14.0-18.0); IMMATURE GRAN ABSOLUTE AUTO 0.01 10^3/uL (0.00-0.49); IMMATURE GRAN PERCENT AUTO 0.2 % (0.0-4.9); LYMPHOCYTES ABSOLUTE AUTO 1.36 10^3/uL (0.60-5.00); LYMPHOCYTES PERCENT AUTO 22.3 % (24-44); MEAN CORPUSCULAR HEMOGLOBIN 28.9 pg (27.0-32.0); MEAN CORPUSCULAR HGB CONC 31.5 g/dL (32.0-36.0); MEAN CORPUSCULAR VOLUME 91.8 fL (83.0-97.0); MONOCYTES ABSOLUTE AUTO 0.47 10^3/uL (0.00-1.50); MONOCYTES PERCENT AUTO 7.7 % (0-10); NEUTROPHILS PERCENT AUTO 62.2 % (41-71); PLATELET COUNT,PLT 317 10^3/uL (150-400); RED BLOOD CELL COUNT 3.29 x10^6/uL (4.50-6.00); WHITE BLOOD CELL COUNT,WBC 6.1 10^3/uL (4.0-11.0)
[2024-08-03 10:18] LABS: ALBUMIN 2.1 g/dL (3.4-5.0); BILIRUBIN TOTAL 0.3 mg/dL (0.0-1.0); CALCIUM 8.2 mg/dL (8.4-10.1); CREATININE 2.5 mg/dL (0.7-1.3); EST CRCL DRUG DOSING (CG) 40.84 mL/min; POTASSIUM,K 5.2 mEq/L (3.5-5.0); PROTEIN TOTAL,TP 6.2 g/dL (6.4-8.2)
[2024-08-03] MEDS: VANCOmycin 1 GM/200 ML 1 GM in Premix Bag 1 BAG IV SCH (11:28)
[2024-08-03] MEDS: Acetaminophen 325 MG Tab PO PRN (12:36)
[2024-08-04] MEDS: Cyclobenzaprine 10 MG Tab PO PRN (01:17)
[2024-08-04] MEDS ORDERED: Glucagon,Human Recombinant 1 MG Vial IM PRN (02:00)
[2024-08-04] MEDS ORDERED: 50% Dextrose in Water 50 ML Syringe IVPUSH PRN (02:00)
[2024-08-04] MEDS: Insulin Lispro 100 Units/ML 3 ML Vial SUBCUT ONE (02:11)
[2024-08-04] MEDS: Ketorolac 30 MG/ML SDV IVPUSH ONE (02:18)
[2024-08-04 07:38] LABS: BASOPHILS ABSOLUTE AUTO 0.08 10^3/uL (0.00-0.50); BASOPHILS PERCENT AUTO 1.4 % (0-1); EOSINOPHILS ABSOLUTE AUTO 0.41 10^3/uL (0.00-1.50); HEMATOCRIT 27.2 % (42.0-52.0); HEMOGLOBIN 8.6 g/dL (14.0-18.0); IMMATURE GRAN ABSOLUTE AUTO 0.02 10^3/uL (0.00-0.49); IMMATURE GRAN PERCENT AUTO 0.3 % (0.0-4.9); LYMPHOCYTES ABSOLUTE AUTO 1.83 10^3/uL (0.60-5.00); LYMPHOCYTES PERCENT AUTO 31.1 % (24-44); MEAN CORPUSCULAR HEMOGLOBIN 28.9 pg (27.0-32.0); MEAN CORPUSCULAR HGB CONC 31.6 g/dL (32.0-36.0); MEAN CORPUSCULAR VOLUME 91.3 fL (83.0-97.0); MONOCYTES ABSOLUTE AUTO 0.63 10^3/uL (0.00-1.50); MONOCYTES PERCENT AUTO 10.7 % (0-10); NEUTROPHILS ABSOLUTE AUTO 2.92 x10^3/uL (1.80-8.00); NEUTROPHILS PERCENT AUTO 49.5 % (41-71); PLATELET COUNT,PLT 277 10^3/uL (150-400); RED BLOOD CELL COUNT 2.98 x10^6/uL (4.50-6.00); WHITE BLOOD CELL COUNT,WBC 5.9 10^3/uL (4.0-11.0)
[2024-08-04 08:04] VITALS: BP 155/80
[2024-08-04 08:09] LABS: ALANINE AMINOTRANSFERASE,ALT 25 U/L (12-78); ALKALINE PHOSPHATASE 181 U/L (46-116); ASPARTATE AMNIOTRANSFERASE,AST 25 U/L (15-37); BILIRUBIN TOTAL 0.2 mg/dL (0.0-1.0); BLOOD UREA NITROGEN,BUN 37 mg/dL (7-18); CALCIUM 7.6 mg/dL (8.4-10.1); CARBON DIOXIDE,CO2 22 mmol/L (21-32); CHLORIDE,CL 110 mEq/L (98-106); EST CRCL DRUG DOSING (CG) 37.81 mL/min; GLUCOSE RANDOM 156 mg/dL (75-99); PROTEIN TOTAL,TP 5.8 g/dL (6.4-8.2); SODIUM,NA 140 mEq/L (136-145)
[2024-08-04 08:10] LABS: ESTIMATED GFR 28 mL/min (>=60)
[2024-08-04 08:11] LABS: C-REACTIVE PROTEIN < 0.50 mg/dL (<=0.50); CREATININE 2.7 mg/dL (0.7-1.3)
[2024-08-04 09:40] VITALS: PULSE 77
== END 2024-08-04 10:35 | disposition home or self-care (01) | DRG 638 ==
LOC: CC.MS 10:54 → UNDOADMOB 10:54 → INTOOBSV 10:54 → CC.MS 08-03 12:23 → OBSVTOIN 08-03 12:39 → INTOOBSV 08-03 12:39
PROVIDERS: ADMIT Nurse Practitioner; ATTEND Nurse Practitioner
DX: E11.621 Type 2 diabetes mellitus with foot ulcer (principal); L03.116 Cellulitis of left lower limb; L97.529 Non-pressure chronic ulcer of other part of left foot with unspecified severity; E78.00 Pure hypercholesterolemia, unspecified; I10 Essential (primary) hypertension; M19.90 Unspecified osteoarthritis, unspecified site; M54.9 Dorsalgia, unspecified; E11.40 Type 2 diabetes mellitus with diabetic neuropathy, unspecified; F41.9 Anxiety disorder, unspecified; F32.A Depression, unspecified; E11.22 Type 2 diabetes mellitus with diabetic chronic kidney disease; E11.65 Type 2 diabetes mellitus with hyperglycemia; N17.9 Acute kidney failure, unspecified; N18.9 Chronic kidney disease, unspecified; K59.00 Constipation, unspecified; Z79.51 Long term (current) use of inhaled steroids; Z79.899 Other long term (current) drug therapy; Z79.4 Long term (current) use of insulin
CPT/HCPCS: 0240U; 36415; 80053; 80202; 83605; 83735; 85025; 86140; 87040; 97161-GP; A9270-GY; J1815-GY; J1885; J3372; J7030

== ENCOUNTER 2024-08-08 18:19 | Emergency (ER) | payer MEDICARE, MEDICAID ==
[2024-08-08 19:02] LABS: BASOPHILS ABSOLUTE AUTO 0.05 10^3/uL (0.00-0.50); EOSINOPHILS ABSOLUTE AUTO 0.31 10^3/uL (0.00-1.50); EOSINOPHILS PERCENT AUTO 6.3 % (0-6); HEMATOCRIT 29.7 % (42.0-52.0); HEMOGLOBIN 9.5 g/dL (14.0-18.0); IMMATURE GRAN ABSOLUTE AUTO 0.01 10^3/uL (0.00-0.49); IMMATURE GRAN PERCENT AUTO 0.2 % (0.0-4.9); LYMPHOCYTES ABSOLUTE AUTO 1.29 10^3/uL (0.60-5.00); LYMPHOCYTES PERCENT AUTO 26.3 % (24-44); MEAN CORPUSCULAR HEMOGLOBIN 29.1 pg (27.0-32.0); MEAN CORPUSCULAR VOLUME 91.1 fL (83.0-97.0); MONOCYTES PERCENT AUTO 12.2 % (0-10); NEUTROPHILS ABSOLUTE AUTO 2.65 x10^3/uL (1.80-8.00); PLATELET COUNT,PLT 238 10^3/uL (150-400); RED BLOOD CELL COUNT 3.26 x10^6/uL (4.50-6.00); WHITE BLOOD CELL COUNT,WBC 4.9 10^3/uL (4.0-11.0)
[2024-08-08 19:14] LABS: ALANINE AMINOTRANSFERASE,ALT 49 U/L (12-78); ALBUMIN 2.2 g/dL (3.4-5.0); ALKALINE PHOSPHATASE 220 U/L (46-116); ASPARTATE AMNIOTRANSFERASE,AST 101 U/L (15-37); BILIRUBIN TOTAL 0.1 mg/dL (0.0-1.0); BLOOD UREA NITROGEN,BUN 34 mg/dL (7-18); CALCIUM 7.6 mg/dL (8.4-10.1); CARBON DIOXIDE,CO2 20 mmol/L (21-32); CHLORIDE,CL 105 mEq/L (98-106); EST CRCL DRUG DOSING (CG) 34.19 mL/min; GLUCOSE RANDOM 204 mg/dL (75-99); LIPASE 25 U/L (16-77); POTASSIUM,K 5.1 mEq/L (3.5-5.0); SODIUM,NA 137 mEq/L (136-145)
[2024-08-08 19:15] LABS: C-REACTIVE PROTEIN < 0.50 mg/dL (<=0.50); CREATININE 2.9 mg/dL (0.7-1.3); ESTIMATED GFR 26 mL/min (>=60)
[2024-08-08 19:35] LABS: CORONAVIRUS COVID-19 NAA NEGATIVE (NEGATIVE); INFLUENZA A NAA NEGATIVE (NEGATIVE); INFLUENZA B NAA NEGATIVE (NEGATIVE); RESPIRATORY SYNCYTIAL VIR NAA NEGATIVE (NEGATIVE)
[2024-08-08] MEDS: Magnesium Citrate Solution 296 ML Bottle PO ONE (20:19)
[2024-08-08] MEDS: Take Home: Ondansetron 4 MG Tab.DIS, 2 Tab Pack PO ONE (20:19)
[2024-08-08 20:45] VITALS: BP 148/58; PULSE 74
== END 2024-08-08 20:47 | disposition home or self-care (01) ==
LOC: CC.ED 18:19
DX: I12.9 Hypertensive chronic kidney disease with stage 1 through stage 4 chronic kidney disease, or unspecified chronic kidney disease (principal); N18.9 Chronic kidney disease, unspecified; K59.00 Constipation, unspecified; E10.22 Type 1 diabetes mellitus with diabetic chronic kidney disease; E78.00 Pure hypercholesterolemia, unspecified; Z79.4 Long term (current) use of insulin; Z79.899 Other long term (current) drug therapy; Z79.51 Long term (current) use of inhaled steroids
CPT/HCPCS: 0241U; 36415; 71046; 74019; 80053; 83690; 83735; 85025; 86140; 99284; 99285; A9270-GY

== ENCOUNTER 2024-08-14 21:00 | Emergency (ER) | payer MEDICARE, MEDICAID ==
[2024-08-14 21:36] LABS: BASOPHILS ABSOLUTE AUTO 0.09 10^3/uL (0.00-0.50); BASOPHILS PERCENT AUTO 1.4 % (0-1); EOSINOPHILS ABSOLUTE AUTO 0.26 10^3/uL (0.00-1.50); EOSINOPHILS PERCENT AUTO 3.9 % (0-6); HEMATOCRIT 35.3 % (42.0-52.0); HEMOGLOBIN 11.6 g/dL (14.0-18.0); IMMATURE GRAN ABSOLUTE AUTO 0.01 10^3/uL (0.00-0.49); IMMATURE GRAN PERCENT AUTO 0.2 % (0.0-4.9); LYMPHOCYTES ABSOLUTE AUTO 1.93 10^3/uL (0.60-5.00); LYMPHOCYTES PERCENT AUTO 29.1 % (24-44); MEAN CORPUSCULAR HEMOGLOBIN 29.6 pg (27.0-32.0); MEAN CORPUSCULAR HGB CONC 32.9 g/dL (32.0-36.0); MEAN CORPUSCULAR VOLUME 90.1 fL (83.0-97.0); MONOCYTES ABSOLUTE AUTO 0.67 10^3/uL (0.00-1.50); MONOCYTES PERCENT AUTO 10.1 % (0-10); NEUTROPHILS ABSOLUTE AUTO 3.67 x10^3/uL (1.80-8.00); NEUTROPHILS PERCENT AUTO 55.3 % (41-71); PLATELET COUNT,PLT 279 10^3/uL (150-400); RED BLOOD CELL COUNT 3.92 x10^6/uL (4.50-6.00); WHITE BLOOD CELL COUNT,WBC 6.6 10^3/uL (4.0-11.0)
[2024-08-14 21:38] VITALS: BP 178/92; PULSE 83
[2024-08-14 21:49] LABS: ALANINE AMINOTRANSFERASE,ALT 40 U/L (12-78); ALBUMIN 2.8 g/dL (3.4-5.0); ALKALINE PHOSPHATASE 258 U/L (46-116); ASPARTATE AMNIOTRANSFERASE,AST 28 U/L (15-37); BILIRUBIN TOTAL 0.2 mg/dL (0.0-1.0); BLOOD UREA NITROGEN,BUN 29 mg/dL (7-18); CALCIUM 8.4 mg/dL (8.4-10.1); CARBON DIOXIDE,CO2 25 mmol/L (21-32); CHLORIDE,CL 106 mEq/L (98-106); EST CRCL DRUG DOSING (CG) 32.37 mL/min; GLUCOSE RANDOM 206 mg/dL (75-99); PROTEIN TOTAL,TP 7.1 g/dL (6.4-8.2); SODIUM,NA 139 mEq/L (136-145)
[2024-08-14 21:51] LABS: C-REACTIVE PROTEIN < 0.50 mg/dL (<=0.50); CREATININE 2.7 mg/dL (0.7-1.3); ESTIMATED GFR 28 mL/min (>=60)
== END 2024-08-14 22:17 | disposition home or self-care (01) ==
LOC: CC.ED 21:00
DX: B35.4 Tinea corporis (principal); I10 Essential (primary) hypertension; E10.40 Type 1 diabetes mellitus with diabetic neuropathy, unspecified; E78.00 Pure hypercholesterolemia, unspecified; M19.90 Unspecified osteoarthritis, unspecified site; Z79.899 Other long term (current) drug therapy; Z79.84 Long term (current) use of oral hypoglycemic drugs
CPT/HCPCS: 36415; 71046; 80053; 85025; 86140; 99285

== ENCOUNTER 2024-09-19 20:10 | Emergency (ER) | payer MEDICARE, MEDICAID ==
[2024-09-19] MEDS: Ondansetron 4 MG/2 ML SDV IVPUSH STA (20:39)
[2024-09-19] MEDS: Sodium Chloride 0.9% 1,000 ML IV ONE (20:39)
[2024-09-19 20:40] LABS: BASOPHILS ABSOLUTE AUTO 0.06 10^3/uL (0.00-0.50); BASOPHILS PERCENT AUTO 0.9 % (0-1); EOSINOPHILS ABSOLUTE AUTO 0.14 10^3/uL (0.00-1.50); HEMATOCRIT 29.9 % (42.0-52.0); HEMOGLOBIN 9.8 g/dL (14.0-18.0); IMMATURE GRAN ABSOLUTE AUTO 0.01 10^3/uL (0.00-0.49); IMMATURE GRAN PERCENT AUTO 0.1 % (0.0-4.9); LYMPHOCYTES ABSOLUTE AUTO 1.08 10^3/uL (0.60-5.00); LYMPHOCYTES PERCENT AUTO 15.7 % (24-44); MEAN CORPUSCULAR HEMOGLOBIN 28.7 pg (27.0-32.0); MEAN CORPUSCULAR HGB CONC 32.8 g/dL (32.0-36.0); MEAN CORPUSCULAR VOLUME 87.4 fL (83.0-97.0); MONOCYTES ABSOLUTE AUTO 0.57 10^3/uL (0.00-1.50); MONOCYTES PERCENT AUTO 8.3 % (0-10); NEUTROPHILS ABSOLUTE AUTO 5.03 x10^3/uL (1.80-8.00); PLATELET COUNT,PLT 320 10^3/uL (150-400); RED BLOOD CELL COUNT 3.42 x10^6/uL (4.50-6.00); WHITE BLOOD CELL COUNT,WBC 6.9 10^3/uL (4.0-11.0)
[2024-09-19 20:53] LABS: ALBUMIN 2.4 g/dL (3.4-5.0); BILIRUBIN TOTAL 0.1 mg/dL (0.0-1.0); C-REACTIVE PROTEIN 1.06 mg/dL (<=0.50); CALCIUM 8.3 mg/dL (8.4-10.1); CREATININE 2.5 mg/dL (0.7-1.3); EST CRCL DRUG DOSING (CG) 36.91 mL/min; POTASSIUM,K 4.3 mEq/L (3.5-5.0)
[2024-09-19] MEDS: Carvedilol 12.5 MG Tab PO ONE (21:43)
[2024-09-19 21:51] LABS: APPEARANCE,URINE CLEAR (CLEAR); BILIRUBIN,URINE NEGATIVE (NEGATIVE); COLOR,URINE LIGHT YELLOW (YELLOW); GLUCOSE,URINE 250 mg/dL (NEGATIVE); KETONES,URINE NEGATIVE (NEGATIVE); LEUKOCYTE ESTERASE,URINE NEGATIVE (NEGATIVE); NITRITE,URINE NEGATIVE (NEGATIVE); OCCULT BLOOD,URINE SMALL (NEGATIVE); PROTEIN,URINE >=300 mg/dL (NEGATIVE); UROBILINOGEN,URINE 0.2 EU/dL (0.2-1.0)
[2024-09-19] MEDS: amLODIPine 10 MG Tab PO STA (21:52)
[2024-09-19 21:55] LABS: BACTERIA,URINE NOT SEEN /HPF (NOT SEEN); EPITHELIAL CELLS,URINE NOT SEEN /HPF (NOT SEEN); MUCUS,URINE OCCASIONAL /HPF (NOT SEEN); RBC,URINE 0-5 /HPF (0-5); WBC,URINE NOT SEEN /HPF (0-5)
[2024-09-19 22:29] VITALS: BP 165/97; PULSE 98
[2024-09-20] MEDS ORDERED: amLODIPine 10 MG Tab PO SCH (20:00)
== END 2024-09-19 22:15 | disposition home or self-care (01) ==
LOC: CC.ED 20:10
DX: K59.00 Constipation, unspecified (principal); E78.00 Pure hypercholesterolemia, unspecified; I10 Essential (primary) hypertension; E10.9 Type 1 diabetes mellitus without complications; Z79.4 Long term (current) use of insulin; Z79.899 Other long term (current) drug therapy; Z79.51 Long term (current) use of inhaled steroids
CPT/HCPCS: 36415; 74176; 80053; 81001; 82947; 83690; 85025; 86140; 96361; 96374; 99284; 99284-25; A9270-GY; J2405; J7030

== ENCOUNTER 2024-09-23 11:48 | Emergency (ER) | payer MEDICARE, MEDICAID ==
[2024-09-23 12:20] VITALS: BP 149/89; PULSE 82
[2024-09-23 12:21] LABS: BASOPHILS ABSOLUTE AUTO 0.09 10^3/uL (0.00-0.50); BASOPHILS PERCENT AUTO 1.3 % (0-1); EOSINOPHILS ABSOLUTE AUTO 0.26 10^3/uL (0.00-1.50); EOSINOPHILS PERCENT AUTO 3.7 % (0-6); HEMATOCRIT 30.2 % (42.0-52.0); HEMOGLOBIN 10.2 g/dL (14.0-18.0); IMMATURE GRAN ABSOLUTE AUTO 0.01 10^3/uL (0.00-0.49); IMMATURE GRAN PERCENT AUTO 0.1 % (0.0-4.9); LYMPHOCYTES ABSOLUTE AUTO 1.32 10^3/uL (0.60-5.00); LYMPHOCYTES PERCENT AUTO 18.8 % (24-44); MEAN CORPUSCULAR HEMOGLOBIN 29.1 pg (27.0-32.0); MEAN CORPUSCULAR HGB CONC 33.8 g/dL (32.0-36.0); MONOCYTES ABSOLUTE AUTO 0.64 10^3/uL (0.00-1.50); MONOCYTES PERCENT AUTO 9.1 % (0-10); NEUTROPHILS ABSOLUTE AUTO 4.72 x10^3/uL (1.80-8.00); PLATELET COUNT,PLT 313 10^3/uL (150-400); RED BLOOD CELL COUNT 3.51 x10^6/uL (4.50-6.00)
[2024-09-23 12:35] LABS: ALANINE AMINOTRANSFERASE,ALT 16 U/L (12-78); ALBUMIN 2.2 g/dL (3.4-5.0); ALKALINE PHOSPHATASE 174 U/L (46-116); ASPARTATE AMNIOTRANSFERASE,AST 12 U/L (15-37); BILIRUBIN TOTAL 0.2 mg/dL (0.0-1.0); BLOOD UREA NITROGEN,BUN 17 mg/dL (7-18); C-REACTIVE PROTEIN < 0.50 mg/dL (<=0.50); CALCIUM 8.5 mg/dL (8.4-10.1); CARBON DIOXIDE,CO2 25 mmol/L (21-32); CHLORIDE,CL 106 mEq/L (98-106); CREATININE 2.4 mg/dL (0.7-1.3); EST CRCL DRUG DOSING (CG) 38.64 mL/min; ESTIMATED GFR 32 mL/min (>=60); GLUCOSE RANDOM 168 mg/dL (75-99); LIPASE 14 U/L (16-77); POTASSIUM,K 4.2 mEq/L (3.5-5.0); SODIUM,NA 141 mEq/L (136-145)
[2024-09-23] MEDS: Ondansetron 4 MG Tab.DIS PO ONE (12:42)
[2024-09-23] MEDS: Take Home: Ondansetron 4 MG Tab.DIS, 2 Tab Pack PO ONE (12:44)
[2024-09-23] MEDS: Magnesium Citrate Solution 296 ML Bottle PO ONE (12:44)
== END 2024-09-23 13:00 | disposition home or self-care (01) ==
LOC: CC.ED 11:48
DX: K59.00 Constipation, unspecified (principal); I10 Essential (primary) hypertension; E78.00 Pure hypercholesterolemia, unspecified; E10.9 Type 1 diabetes mellitus without complications; F12.188 Cannabis abuse with other cannabis-induced disorder; Z79.4 Long term (current) use of insulin
CPT/HCPCS: 36415; 74019; 80053; 83690; 85025; 86140; 99284; A9270-GY

== ENCOUNTER 2024-10-01 01:42 | Emergency (ER) | payer MEDICARE, MEDICAID ==
[2024-10-01 02:13] LABS: BASOPHILS ABSOLUTE AUTO 0.04 10^3/uL (0.00-0.50); BASOPHILS PERCENT AUTO 0.4 % (0-1); EOSINOPHILS PERCENT AUTO 0.9 % (0-6); HEMATOCRIT 30.8 % (42.0-52.0); HEMOGLOBIN 10.3 g/dL (14.0-18.0); IMMATURE GRAN ABSOLUTE AUTO 0.02 10^3/uL (0.00-0.49); IMMATURE GRAN PERCENT AUTO 0.2 % (0.0-4.9); LYMPHOCYTES ABSOLUTE AUTO 1.07 10^3/uL (0.60-5.00); LYMPHOCYTES PERCENT AUTO 9.8 % (24-44); MEAN CORPUSCULAR HEMOGLOBIN 28.6 pg (27.0-32.0); MEAN CORPUSCULAR HGB CONC 33.4 g/dL (32.0-36.0); MEAN CORPUSCULAR VOLUME 85.6 fL (83.0-97.0); MONOCYTES ABSOLUTE AUTO 0.84 10^3/uL (0.00-1.50); MONOCYTES PERCENT AUTO 7.7 % (0-10); NEUTROPHILS ABSOLUTE AUTO 8.81 x10^3/uL (1.80-8.00); PLATELET COUNT,PLT 390 10^3/uL (150-400); WHITE BLOOD CELL COUNT,WBC 10.9 10^3/uL (4.0-11.0)
[2024-10-01 02:31] LABS: ALBUMIN 2.4 g/dL (3.4-5.0); BILIRUBIN TOTAL 0.3 mg/dL (0.0-1.0); CALCIUM 8.5 mg/dL (8.4-10.1); EST CRCL DRUG DOSING (CG) 35.67 mL/min; MAGNESIUM 1.9 mg/dL (1.8-2.4); POTASSIUM,K 3.9 mEq/L (3.5-5.0); PROTEIN TOTAL,TP 7.1 g/dL (6.4-8.2)
[2024-10-01 02:36] LABS: CREATININE 2.6 mg/dL (0.7-1.3)
[2024-10-01] MEDS ORDERED: Dextrose 5% in Water 1,000 ML IV SCH (02:45)
[2024-10-01 03:25] VITALS: BP 132/78
[2024-10-01 07:01] VITALS: PULSE 82
== END 2024-10-01 08:50 | disposition home or self-care (01) ==
LOC: CC.ED 01:42
DX: E10.649 Type 1 diabetes mellitus with hypoglycemia without coma (principal); I10 Essential (primary) hypertension; E10.40 Type 1 diabetes mellitus with diabetic neuropathy, unspecified; E78.00 Pure hypercholesterolemia, unspecified; M19.90 Unspecified osteoarthritis, unspecified site; Z79.899 Other long term (current) drug therapy; Z79.4 Long term (current) use of insulin
CPT/HCPCS: 36415; 80053; 82947; 83735; 85025; 99284; 99285

== ENCOUNTER 2024-10-27 07:06 | Day surgery (SDC) | payer MEDICARE, MEDICAID ==
[2024-10-27] MEDS: Lactated Ringers 1,000 ML IV SCH (07:29)
[2024-10-27] MEDS ORDERED: Midazolam 1 MG/ML 2 ML SDV ONE (07:34)
[2024-10-27] MEDS ORDERED: Propofol 200 MG/20 ML SDV ONE (07:34)
[2024-10-27] MEDS ORDERED: Flumazenil 0.1 MG/ML 5 ML MDV ONE (07:34)
[2024-10-27] MEDS ORDERED: fentaNYL 50 MCG/ML SDV ONE (07:34)
[2024-10-27] MEDS ORDERED: Ketamine 200 MG/20 ML MDV ONE (07:34)
[2024-10-27 08:42] VITALS: BP 185/97; PULSE 72
== END 2024-10-27 08:45 | disposition home or self-care (01) ==
LOC: CC.SDS 07:06
PROVIDERS: ATTEND Family Medicine
DX: K59.09 Other constipation (principal); I12.9 Hypertensive chronic kidney disease with stage 1 through stage 4 chronic kidney disease, or unspecified chronic kidney disease; E10.22 Type 1 diabetes mellitus with diabetic chronic kidney disease; N18.9 Chronic kidney disease, unspecified; F17.200 Nicotine dependence, unspecified, uncomplicated; Z79.899 Other long term (current) drug therapy
CPT/HCPCS: 00811; J2250; J2704; J3010; J3490; J7120

== ENCOUNTER 2025-01-19 15:46 | Observation (INO) | payer MEDICARE, MEDICAID ==
[2025-01-19 16:15] LABS: BASOPHILS ABSOLUTE AUTO 0.07 10^3/uL (0.00-0.50); BASOPHILS PERCENT AUTO 1.3 % (0-1); EOSINOPHILS ABSOLUTE AUTO 0.16 10^3/uL (0.00-1.50); EOSINOPHILS PERCENT AUTO 3.0 % (0-6); IMMATURE GRAN ABSOLUTE AUTO 0.01 10^3/uL (0.00-0.49); IMMATURE GRAN PERCENT AUTO 0.2 % (0.0-4.9); LYMPHOCYTES ABSOLUTE AUTO 1.33 10^3/uL (0.60-5.00); LYMPHOCYTES PERCENT AUTO 24.8 % (24-44); MONOCYTES ABSOLUTE AUTO 0.43 10^3/uL (0.00-1.50); MONOCYTES PERCENT AUTO 8.0 % (0-10); NEUTROPHILS ABSOLUTE AUTO 3.36 x10^3/uL (1.80-8.00); NEUTROPHILS PERCENT AUTO 62.7 % (41-71); PLATELET COUNT,PLT 297 10^3/uL (150-400); RED BLOOD CELL COUNT 3.59 x10^6/uL (4.50-6.00); WHITE BLOOD CELL COUNT,WBC 5.4 10^3/uL (4.0-11.0)
[2025-01-19] MEDS: Ondansetron 4 MG Tab.DIS PO ONE (16:26)
[2025-01-19 16:27] LABS: ALANINE AMINOTRANSFERASE,ALT 27 U/L (12-78); ASPARTATE AMNIOTRANSFERASE,AST 28 U/L (15-37); BILIRUBIN TOTAL 0.5 mg/dL (0.0-1.0); BLOOD UREA NITROGEN,BUN 42 mg/dL (7-18); CARBON DIOXIDE,CO2 20 mmol/L (21-32); CHLORIDE,CL 105 mEq/L (98-106); EST CRCL DRUG DOSING (CG) 26.42 mL/min; POTASSIUM,K 4.6 mEq/L (3.5-5.0); PROTEIN TOTAL,TP 5.8 g/dL (6.4-8.2); SODIUM,NA 134 mEq/L (136-145)
[2025-01-19 16:29] LABS: CREATININE 3.4 mg/dL (0.7-1.3); ESTIMATED GFR 21 mL/min (>=60); GLUCOSE RANDOM 327 mg/dL (75-99)
[2025-01-19] MEDS ORDERED: Sodium Chloride 0.9% 10 ML Syringe FLUSH PRN (16:30)
[2025-01-19] MEDS ORDERED: 50% Dextrose in Water 50 ML Syringe IVPUSH PRN ×2 (19:00→19:22)
[2025-01-19] MEDS ORDERED: Ondansetron 4 MG/2 ML SDV IV PRN (19:06)
[2025-01-19] MEDS ORDERED: Ondansetron 4 MG Tab.DIS PO PRN (19:06)
[2025-01-19] MEDS ORDERED: Insulin Regular, Human 100 Units/ML 10 ML Vial SUBCUT SCH (20:00)
[2025-01-19] MEDS ORDERED: Non-Formulary Medication 1 Each (Rosuvastatin [Crestor] 20 MG Tablet) PO SCH (20:00)
[2025-01-19] MEDS ORDERED: Non-Formulary Medication 1 Each (Pregabalin [Pregabalin] 75 MG Capsule) PO SCH (20:00)
[2025-01-19] MEDS: Insulin Regular, Human 100 Units/ML 10 ML Vial SUBCUT SCH (21:28)
[2025-01-19 21:59] VITALS: BP 142/90; PULSE 92
[2025-01-20] MEDS ORDERED: Non-Formulary Medication 1 Each (Pregabalin [Pregabalin] 75 MG Capsule) PO SCH (08:00)
[2025-01-20] MEDS ORDERED: Non-Formulary Medication 1 Each (Multivitamin With Minerals [One Daily Plus Minerals] 1 EA PO SCH (08:00)
[2025-01-20] MEDS ORDERED: LOSARTAN POTASSIUM 50 MG PO SCH (08:00)
== END 2025-01-19 23:15 | disposition left against medical advice (07) ==
LOC: CC.ED 15:46 → CC.MS 19:21
PROVIDERS: ADMIT Nurse Practitioner Family; ATTEND Nurse Practitioner Family
DX: N17.9 Acute kidney failure, unspecified (principal); I12.9 Hypertensive chronic kidney disease with stage 1 through stage 4 chronic kidney disease, or unspecified chronic kidney disease; E10.22 Type 1 diabetes mellitus with diabetic chronic kidney disease; N18.32 Chronic kidney disease, stage 3b; E10.65 Type 1 diabetes mellitus with hyperglycemia; E86.0 Dehydration; E78.00 Pure hypercholesterolemia, unspecified; Z79.4 Long term (current) use of insulin; Z79.899 Other long term (current) drug therapy
CPT/HCPCS: 36415; 74176; 80053; 82947; 83690; 85025; 86140; 96360; 96361; 99285-25; A9270-GY; G0378; J7030

== ENCOUNTER 2025-02-26 16:00 | Inpatient (IN) | payer MEDICARE, MEDICAID ==
[2025-02-26] MEDS ORDERED: Ondansetron 4 MG Tab.DIS PO PRN (16:44)
[2025-02-26] MEDS ORDERED: 50% Dextrose in Water 50 ML Syringe IVPUSH PRN (16:53)
[2025-02-26] MEDS: Cholecalciferol (Vitamin D3) 25 MCG Tab PO SCH (17:17)
[2025-02-27] MEDS: Multivitamins with Iron/Calcium/Folic Acid/Minerals Tab PO SCH (07:25)
[2025-02-27 07:50] LABS: BASOPHILS ABSOLUTE AUTO 0.06 10^3/uL (0.00-0.50); BASOPHILS PERCENT AUTO 1.2 % (0-1); EOSINOPHILS ABSOLUTE AUTO 0.15 10^3/uL (0.00-1.50); EOSINOPHILS PERCENT AUTO 3.1 % (0-6); IMMATURE GRAN ABSOLUTE AUTO 0.01 10^3/uL (0.00-0.49); IMMATURE GRAN PERCENT AUTO 0.2 % (0.0-4.9); LYMPHOCYTES ABSOLUTE AUTO 1.57 10^3/uL (0.60-5.00); LYMPHOCYTES PERCENT AUTO 32.0 % (24-44); MONOCYTES ABSOLUTE AUTO 0.48 10^3/uL (0.00-1.50); MONOCYTES PERCENT AUTO 9.8 % (0-10); NEUTROPHILS ABSOLUTE AUTO 2.63 x10^3/uL (1.80-8.00); NEUTROPHILS PERCENT AUTO 53.7 % (41-71); PLATELET COUNT,PLT 281 10^3/uL (150-400); RED BLOOD CELL COUNT 3.04 x10^6/uL (4.50-6.00); WHITE BLOOD CELL COUNT,WBC 4.9 10^3/uL (4.0-11.0)
[2025-02-27 07:52] LABS: ALANINE AMINOTRANSFERASE,ALT 60.0 U/L (12-78); ASPARTATE AMNIOTRANSFERASE,AST 40.0 U/L (15-37); BILIRUBIN TOTAL 0.2 mg/dL (0.0-1.0); BLOOD UREA NITROGEN,BUN 28.0 mg/dL (7-18); CARBON DIOXIDE,CO2 21.0 mmol/L (21-32); CHLORIDE,CL 112.0 mEq/L (98-106); EST CRCL DRUG DOSING (CG) 24.34 mL/min; GLUCOSE RANDOM 170.0 mg/dL (75-99); POTASSIUM,K 5.8 mEq/L (3.5-5.0); PROTEIN TOTAL,TP 4.7 g/dL (6.4-8.2); SODIUM,NA 140.0 mEq/L (136-145)
[2025-02-27 07:59] LABS: CREATININE 3.8 mg/dL (0.7-1.3); ESTIMATED GFR 19.0 mL/min (>=60)
[2025-02-27 11:52] LABS: APPEARANCE,URINE CLEAR (CLEAR); GLUCOSE,URINE 500 mg/dL (NEGATIVE); OCCULT BLOOD,URINE SMALL (NEGATIVE)
[2025-02-27] MEDS: Furosemide 20 MG/2 ML VIAL IVPUSH ONE (12:47)
[2025-02-27] MEDS: Ondansetron 4 MG/2 ML SDV IV PRN (13:08)
[2025-02-28 07:35] LABS: BASOPHILS ABSOLUTE AUTO 0.07 10^3/uL (0.00-0.50); BASOPHILS PERCENT AUTO 1.0 % (0-1); EOSINOPHILS ABSOLUTE AUTO 0.19 10^3/uL (0.00-1.50); EOSINOPHILS PERCENT AUTO 2.8 % (0-6); IMMATURE GRAN ABSOLUTE AUTO 0.02 10^3/uL (0.00-0.49); IMMATURE GRAN PERCENT AUTO 0.3 % (0.0-4.9); LYMPHOCYTES ABSOLUTE AUTO 1.87 10^3/uL (0.60-5.00); LYMPHOCYTES PERCENT AUTO 27.8 % (24-44); MONOCYTES ABSOLUTE AUTO 0.62 10^3/uL (0.00-1.50); MONOCYTES PERCENT AUTO 9.2 % (0-10); NEUTROPHILS ABSOLUTE AUTO 3.95 x10^3/uL (1.80-8.00); NEUTROPHILS PERCENT AUTO 58.9 % (41-71); PLATELET COUNT,PLT 289 10^3/uL (150-400); RED BLOOD CELL COUNT 3.29 x10^6/uL (4.50-6.00); WHITE BLOOD CELL COUNT,WBC 6.7 10^3/uL (4.0-11.0)
[2025-02-28 07:50] LABS: ALANINE AMINOTRANSFERASE,ALT 50.0 U/L (12-78); ASPARTATE AMNIOTRANSFERASE,AST 25.0 U/L (15-37); BILIRUBIN TOTAL 0.2 mg/dL (0.0-1.0); BLOOD UREA NITROGEN,BUN 34.0 mg/dL (7-18); CARBON DIOXIDE,CO2 22.0 mmol/L (21-32); CHLORIDE,CL 106.0 mEq/L (98-106); EST CRCL DRUG DOSING (CG) 23.72 mL/min; POTASSIUM,K 5.6 mEq/L (3.5-5.0); PROTEIN TOTAL,TP 5.1 g/dL (6.4-8.2); SODIUM,NA 136.0 mEq/L (136-145)
[2025-02-28 07:53] LABS: ESTIMATED GFR 18.0 mL/min (>=60)
[2025-02-28 07:56] LABS: GLUCOSE RANDOM 358.0 mg/dL (75-99)
[2025-02-28 07:58] LABS: CREATININE 3.9 mg/dL (0.7-1.3)
[2025-02-28] MEDS ORDERED: 50% Dextrose in Water 50 ML Syringe IVPUSH PRN (19:42)
[2025-02-28] MEDS: Insulin Glarg,Human.Rec.Analog 100 Unit/ML 10 ML Vial SUBCUT SCH (20:49)
[2025-03-01 07:50] VITALS: BP 169/107; PULSE 85
[2025-03-01 08:13] LABS: BASOPHILS ABSOLUTE AUTO 0.06 10^3/uL (0.00-0.50); BASOPHILS PERCENT AUTO 1.4 % (0-1); EOSINOPHILS ABSOLUTE AUTO 0.10 10^3/uL (0.00-1.50); EOSINOPHILS PERCENT AUTO 2.4 % (0-6); IMMATURE GRAN ABSOLUTE AUTO 0.01 10^3/uL (0.00-0.49); IMMATURE GRAN PERCENT AUTO 0.2 % (0.0-4.9); LYMPHOCYTES ABSOLUTE AUTO 0.82 10^3/uL (0.60-5.00); LYMPHOCYTES PERCENT AUTO 19.7 % (24-44); MONOCYTES ABSOLUTE AUTO 0.47 10^3/uL (0.00-1.50); MONOCYTES PERCENT AUTO 11.3 % (0-10); NEUTROPHILS ABSOLUTE AUTO 2.71 x10^3/uL (1.80-8.00); NEUTROPHILS PERCENT AUTO 65.0 % (41-71); PLATELET COUNT,PLT 255 10^3/uL (150-400); RED BLOOD CELL COUNT 3.08 x10^6/uL (4.50-6.00); WHITE BLOOD CELL COUNT,WBC 4.2 10^3/uL (4.0-11.0)
[2025-03-01 08:18] LABS: ALANINE AMINOTRANSFERASE,ALT 36.0 U/L (12-78); ASPARTATE AMNIOTRANSFERASE,AST 21.0 U/L (15-37); BILIRUBIN TOTAL 0.2 mg/dL (0.0-1.0); BLOOD UREA NITROGEN,BUN 47.0 mg/dL (7-18); CARBON DIOXIDE,CO2 22.0 mmol/L (21-32); CHLORIDE,CL 106.0 mEq/L (98-106); EST CRCL DRUG DOSING (CG) 22.56 mL/min; GLUCOSE RANDOM 277.0 mg/dL (75-99); POTASSIUM,K 5.3 mEq/L (3.5-5.0); PROTEIN TOTAL,TP 4.7 g/dL (6.4-8.2); SODIUM,NA 137.0 mEq/L (136-145)
[2025-03-01 08:19] LABS: CREATININE 4.1 mg/dL (0.7-1.3); ESTIMATED GFR 17.0 mL/min (>=60)
== END 2025-03-01 12:00 | disposition home or self-care (01) | DRG 684 ==
LOC: UNDOADMIN 16:00 → CC.MS 16:00
PROVIDERS: ADMIT Nurse Practitioner; ATTEND Nurse Practitioner
DX: N17.9 Acute kidney failure, unspecified (principal); N18.4 Chronic kidney disease, stage 4 (severe); E83.51 Hypocalcemia; E86.0 Dehydration; E10.65 Type 1 diabetes mellitus with hyperglycemia; E78.00 Pure hypercholesterolemia, unspecified; I10 Essential (primary) hypertension; K59.00 Constipation, unspecified; K21.9 Gastro-esophageal reflux disease without esophagitis; M19.90 Unspecified osteoarthritis, unspecified site; M54.9 Dorsalgia, unspecified; G89.29 Other chronic pain; E11.40 Type 2 diabetes mellitus with diabetic neuropathy, unspecified; F41.9 Anxiety disorder, unspecified; F32.A Depression, unspecified; Z98.890 Other specified postprocedural states; Z87.891 Personal history of nicotine dependence; Z79.899 Other long term (current) drug therapy; Z79.4 Long term (current) use of insulin
CPT/HCPCS: 36415; 80053; 81003; 82436; 83735; 84100; 84133; 84300; 85025; 87045; 87046; 87493; 89055; A9270-GY; J1815-GY; J1938; J2405; J7030

== ENCOUNTER 2025-03-12 10:47 | Emergency (ER) | payer MEDICARE, MEDICAID ==
[2025-03-12 10:55] VITALS: BP 155/98; PULSE 84
[2025-03-12 11:15] LABS: BASOPHILS ABSOLUTE AUTO 0.07 10^3/uL (0.00-0.50); BASOPHILS PERCENT AUTO 1.5 % (0-1); EOSINOPHILS ABSOLUTE AUTO 0.10 10^3/uL (0.00-1.50); EOSINOPHILS PERCENT AUTO 2.2 % (0-6); IMMATURE GRAN ABSOLUTE AUTO 0.03 10^3/uL (0.00-0.49); IMMATURE GRAN PERCENT AUTO 0.6 % (0.0-4.9); LYMPHOCYTES ABSOLUTE AUTO 0.96 10^3/uL (0.60-5.00); LYMPHOCYTES PERCENT AUTO 20.7 % (24-44); MONOCYTES ABSOLUTE AUTO 0.43 10^3/uL (0.00-1.50); MONOCYTES PERCENT AUTO 9.3 % (0-10); NEUTROPHILS ABSOLUTE AUTO 3.04 x10^3/uL (1.80-8.00); NEUTROPHILS PERCENT AUTO 65.7 % (41-71); PLATELET COUNT,PLT 204 10^3/uL (150-400); RED BLOOD CELL COUNT 3.39 x10^6/uL (4.50-6.00); WHITE BLOOD CELL COUNT,WBC 4.6 10^3/uL (4.0-11.0)
[2025-03-12 11:27] LABS: ALANINE AMINOTRANSFERASE,ALT 24 U/L (12-78); ASPARTATE AMNIOTRANSFERASE,AST 22 U/L (15-37); BILIRUBIN TOTAL 0.4 mg/dL (0.0-1.0); BLOOD UREA NITROGEN,BUN 37 mg/dL (7-18); CARBON DIOXIDE,CO2 22 mmol/L (21-32); CHLORIDE,CL 98 mEq/L (98-106); POTASSIUM,K 4.5 mEq/L (3.5-5.0); PROTEIN TOTAL,TP 5.6 g/dL (6.4-8.2); SODIUM,NA 129 mEq/L (136-145)
[2025-03-12 11:36] LABS: CREATININE 4.4 mg/dL (0.7-1.3); ESTIMATED GFR 16 mL/min (>=60); GLUCOSE RANDOM 481 mg/dL (75-99)
[2025-03-12 12:11] LABS: APPEARANCE,URINE CLEAR (CLEAR); GLUCOSE,URINE >=1000 mg/dL (NEGATIVE); OCCULT BLOOD,URINE SMALL (NEGATIVE)
[2025-03-12 12:19] LABS: EPITHELIAL CELLS,URINE FEW /HPF (NOT SEEN)
== END 2025-03-12 13:07 | disposition home or self-care (01) ==
LOC: CC.ED 10:47
DX: I12.9 Hypertensive chronic kidney disease with stage 1 through stage 4 chronic kidney disease, or unspecified chronic kidney disease (principal); N18.9 Chronic kidney disease, unspecified; K59.00 Constipation, unspecified; E87.1 Hypo-osmolality and hyponatremia; K21.9 Gastro-esophageal reflux disease without esophagitis; E78.00 Pure hypercholesterolemia, unspecified; E10.22 Type 1 diabetes mellitus with diabetic chronic kidney disease; Z79.4 Long term (current) use of insulin; Z79.899 Other long term (current) drug therapy; Z87.891 Personal history of nicotine dependence
CPT/HCPCS: 36415; 74019; 80053; 81001; 85025; 86140; 96360; 99284-25; A9270-GY; J7030

== ENCOUNTER 2025-03-14 07:02 | Day surgery (SDC) | payer MEDICARE, MEDICAID ==
[2025-03-14] MEDS: Lactated Ringers 1,000 ML IV SCH (07:25)
[2025-03-14 08:29] VITALS: BP 174/94; PULSE 82
== END 2025-03-14 08:30 | disposition home or self-care (01) ==
LOC: CC.SDS 07:02
PROVIDERS: ATTEND Family Medicine
DX: K59.09 Other constipation (principal); J45.909 Unspecified asthma, uncomplicated; K21.9 Gastro-esophageal reflux disease without esophagitis; F32.A Depression, unspecified; F41.9 Anxiety disorder, unspecified; I12.9 Hypertensive chronic kidney disease with stage 1 through stage 4 chronic kidney disease, or unspecified chronic kidney disease; E10.22 Type 1 diabetes mellitus with diabetic chronic kidney disease; N18.9 Chronic kidney disease, unspecified; Z88.8 Allergy status to other drugs, medicaments and biological substances; Z79.899 Other long term (current) drug therapy
CPT/HCPCS: 45330; J7120

== ENCOUNTER 2025-03-15 01:58 | Emergency (ER) | payer MEDICARE, MEDICAID ==
[2025-03-15 02:02] VITALS: BP 168/98; PULSE 72
[2025-03-15] MEDS ORDERED: 50% Dextrose in Water 50 ML Syringe IVPUSH ONE (02:03)
[2025-03-15] MEDS: 50% Dextrose in Water 50 ML Syringe IVPUSH ONE (02:30)
[2025-03-15 02:48] LABS: BASOPHILS ABSOLUTE AUTO 0.04 10^3/uL (0.00-0.50); BASOPHILS PERCENT AUTO 0.6 % (0-1); EOSINOPHILS ABSOLUTE AUTO 0.08 10^3/uL (0.00-1.50); EOSINOPHILS PERCENT AUTO 1.3 % (0-6); IMMATURE GRAN ABSOLUTE AUTO 0.01 10^3/uL (0.00-0.49); IMMATURE GRAN PERCENT AUTO 0.2 % (0.0-4.9); LYMPHOCYTES ABSOLUTE AUTO 1.45 10^3/uL (0.60-5.00); LYMPHOCYTES PERCENT AUTO 23.0 % (24-44); MONOCYTES ABSOLUTE AUTO 0.67 10^3/uL (0.00-1.50); MONOCYTES PERCENT AUTO 10.6 % (0-10); NEUTROPHILS ABSOLUTE AUTO 4.06 x10^3/uL (1.80-8.00); NEUTROPHILS PERCENT AUTO 64.3 % (41-71); PLATELET COUNT,PLT 296 10^3/uL (150-400); RED BLOOD CELL COUNT 3.57 x10^6/uL (4.50-6.00); WHITE BLOOD CELL COUNT,WBC 6.3 10^3/uL (4.0-11.0)
[2025-03-15 03:00] LABS: ALANINE AMINOTRANSFERASE,ALT 23 U/L (12-78); ASPARTATE AMNIOTRANSFERASE,AST 25 U/L (15-37); BILIRUBIN TOTAL 0.3 mg/dL (0.0-1.0); BLOOD UREA NITROGEN,BUN 34 mg/dL (7-18); CARBON DIOXIDE,CO2 25 mmol/L (21-32); CHLORIDE,CL 104 mEq/L (98-106); EST CRCL DRUG DOSING (CG) 20.80 mL/min; ESTIMATED GFR 16 mL/min (>=60); GLUCOSE RANDOM 79 mg/dL (75-99); POTASSIUM,K 3.1 mEq/L (3.5-5.0); PROTEIN TOTAL,TP 5.8 g/dL (6.4-8.2); SODIUM,NA 145 mEq/L (136-145)
[2025-03-15 03:02] LABS: CREATININE 4.3 mg/dL (0.7-1.3)
== END 2025-03-15 09:00 | disposition home or self-care (01) ==
LOC: CC.ED 01:58
DX: R19.7 Diarrhea, unspecified (principal); I10 Essential (primary) hypertension; K21.9 Gastro-esophageal reflux disease without esophagitis; E78.00 Pure hypercholesterolemia, unspecified; E10.9 Type 1 diabetes mellitus without complications; Z79.4 Long term (current) use of insulin; Z79.899 Other long term (current) drug therapy
CPT/HCPCS: 36415; 80053; 85025; 86140; 96361; 96374; 99284; 99284-25; J7030

== ENCOUNTER 2025-03-16 10:32 | Emergency (ER) | payer MEDICARE, MEDICAID ==
[2025-03-16 12:22] VITALS: BP 158/82; PULSE 74
== END 2025-03-16 12:35 | disposition home or self-care (01) ==
LOC: CC.ED 10:32
DX: R10.10 Upper abdominal pain, unspecified (principal); I10 Essential (primary) hypertension; E78.00 Pure hypercholesterolemia, unspecified; E10.9 Type 1 diabetes mellitus without complications; Z79.899 Other long term (current) drug therapy; Z79.4 Long term (current) use of insulin
CPT/HCPCS: 99283